=== PATIENT | female | born 1950 | race Caucasian/White ===

== ENCOUNTER → 2016-05-23 | Outpatient (REF) | payer MEDICARE, MEDICAID | LOC: M SMT 17:05 | PROVIDERS: ATTEND Urology | DX: Z85.51 Personal history of malignant neoplasm of bladder (principal) ==

== ENCOUNTER 2017-02-18 13:07 | Emergency (ER) | payer MEDICARE, MEDICAID ==
[~2017-02-18] VITALS: Ht 160 cm; Wt 78.6 kg
[2017-02-18 13:18] VITALS: BP 163/68
[2017-02-18] MEDS ORDERED: CLON1TAB (13:30)
[2017-02-18] MEDS ORDERED: HYDR-3363 (13:30)
[2017-02-18] MEDS ORDERED: ATOR40TA75 (13:30)
[2017-02-18] MEDS ORDERED: VENL75CA47 (13:30)
[2017-02-18] MEDS ORDERED: TRAZ50TA11 (13:30)
[2017-02-18] MEDS ORDERED: PROTPAK PO (13:30)
[2017-02-18] MEDS ORDERED: VENTAER (13:30)
[2017-02-18] MEDS ORDERED: LEVE1INJ5 (13:30)
[2017-02-18] MEDS ORDERED: AZOP0.2S (13:30)
[2017-02-18] MEDS ORDERED: XYZA5TAB2 PO (13:30)
[2017-02-18] MEDS ORDERED: HYDR-3713 (13:30)
[2017-02-18] MEDS ORDERED: FLUTISP (13:30)
[2017-02-18] MEDS ORDERED: LIDO1PAD (13:30)
[2017-02-18] MEDS ORDERED: AMPH15CA (13:30)
[2017-02-18] MEDS ORDERED: CLOP75TA2 (13:30)
[2017-02-18] MEDS ORDERED: CHLO125TA (13:30)
[2017-02-18] MEDS ORDERED: ALTA1CAP4 PO (13:30)
--- NOTE | 2017-02-18 14:45 | REP ---
RIGHT TIBIA AND FIBULA, FOUR VIEWS: HISTORY: Ankle pain. There is a nondisplaced fracture of the distal fibula. There is no dislocation. The joint space is normal in appearance. Osteophytes are present on the inferior and posterior calcaneus. Soft tissue swelling is present. IMPRESSION: Nondisplaced fracture of the distal fibula. Signed by Gonsalo Shell MD 02/18/2017 03:32 P
--- NOTE | 2017-02-18 15:19 | REP ---
BILATERAL LOWER EXTREMITY DUPLEX VEINS: HISTORY: Rule out DVT. RIGHT LOWER EXTREMITY: There are no filling defects in the deep venous system. The deep venous system is patent. IMPRESSION: There is no deep venous thrombosis. LEFT LOWER EXTREMITY: There are no filling defects in the deep venous system. The deep venous system is patent. IMPRESSION: There is no deep venous thrombosis. Signed by Gonsalo Shell MD 02/18/2017 03:32 P
[2017-02-18] MEDS ORDERED: NORCO, ANEXSIA 5/325MG TABLET (HYDROcodone/ACETAMINOPHEN) PO ONE (15:30)
[2017-02-18] MEDS ORDERED: NORCOTAB PO (15:52)
[2017-02-18] MEDS ORDERED: HYDR-3713 PO (16:00)
== END 2017-02-18 16:07 | disposition home or self-care (01) ==
LOC: M ED 13:07
DX: S82.831A Other fracture of upper and lower end of right fibula, initial encounter for closed fracture (principal); W10.8XXA Fall (on) (from) other stairs and steps, initial encounter; Y92.89 Other specified places as the place of occurrence of the external cause; Y93.89 Activity, other specified; Y99.8 Other external cause status; I10 Essential (primary) hypertension; J44.9 Chronic obstructive pulmonary disease, unspecified; E78.00 Pure hypercholesterolemia, unspecified; E03.9 Hypothyroidism, unspecified; F41.9 Anxiety disorder, unspecified; F33.9 Major depressive disorder, recurrent, unspecified; Z95.5 Presence of coronary angioplasty implant and graft; I25.10 Atherosclerotic heart disease of native coronary artery without angina pectoris; I73.9 Peripheral vascular disease, unspecified; M19.90 Unspecified osteoarthritis, unspecified site; N04.9 Nephrotic syndrome with unspecified morphologic changes; Z79.899 Other long term (current) drug therapy; Z88.0 Allergy status to penicillin; Z88.8 Allergy status to other drugs, medicaments and biological substances; F17.210 Nicotine dependence, cigarettes, uncomplicated; R22.41 Localized swelling, mass and lump, right lower limb

== ENCOUNTER → 2017-03-28 | Outpatient (CLI) | payer MEDICARE, MEDICAID | LOC: M RAD 13:18 | DX: I73.9 Peripheral vascular disease, unspecified (principal) | CPT/HCPCS: 93923 ==

== ENCOUNTER → 2017-07-27 | Outpatient (CLI) | payer MEDICARE, MEDICAID | LOC: M RAD 08:30 | DX: R09.89 Other specified symptoms and signs involving the circulatory and respiratory systems (principal) | CPT/HCPCS: 93880 ==

== ENCOUNTER → 2017-12-27 | Outpatient (CLI) | payer MEDICARE, MEDICAID | LOC: M RAD 11:27 | DX: I70.213 Atherosclerosis of native arteries of extremities with intermittent claudication, bilateral legs (principal); F17.218 Nicotine dependence, cigarettes, with other nicotine-induced disorders | CPT/HCPCS: 93925 ==

== ENCOUNTER → 2018-01-17 | Outpatient (CLI) | payer MEDICARE, MEDICAID | LOC: M RAD 15:44 | DX: R05 Cough (principal); R07.81 Pleurodynia | CPT/HCPCS: 71046 ==

== ENCOUNTER 2018-03-17 13:08 | Emergency (ER) | payer MEDICARE, MEDICAID ==
[~2018-03-17] VITALS: Ht 160 cm; Wt 83.2 kg
[~2018-03-17 13:08] MED LIST: ALTA1CAP4 PO; AMPH15CA; ATOR40TA75; AZOP0.2S; CHLO125TA; CLON1TAB8; CLOP75TA2; FLUTISP; HYDR-3363; HYDR-3713; HYDR-3713 PO; LEVE1INJ5; LIDO1PAD; NORCOTAB PO; PROTPAK PO; TRAZ-160; VENL75CA47; VENTAER; XYZA5TAB2 PO
[2018-03-17 13:09] VITALS: BP 156/69
[2018-03-17] MEDS ORDERED: NICO2GUM8 PO (13:37)
[2018-03-17] MEDS ORDERED: ADDE20CA3 PO (13:37)
[2018-03-17] MEDS ORDERED: ZOLP10TA2 (13:37)
[2018-03-17] MEDS ORDERED: QUET1TAB7 (13:37)
[2018-03-17] MEDS ORDERED: PANT40TA3 (13:37)
[2018-03-17] MEDS ORDERED: DULE200A (13:37)
[2018-03-17] MEDS ORDERED: CLEO300C2 PO (13:55)
[2018-03-17] MEDS ORDERED: VALA1TAB2 PO (13:55)
[2018-03-17] MEDS ORDERED: GABA-843 PO (13:55)
== END 2018-03-17 14:18 | disposition home or self-care (01) ==
LOC: M ED 13:08
DX: B02.9 Zoster without complications (principal); I25.10 Atherosclerotic heart disease of native coronary artery without angina pectoris; I25.2 Old myocardial infarction; I10 Essential (primary) hypertension; F41.9 Anxiety disorder, unspecified; F32.9 Major depressive disorder, single episode, unspecified; J44.9 Chronic obstructive pulmonary disease, unspecified; I73.9 Peripheral vascular disease, unspecified; N04.9 Nephrotic syndrome with unspecified morphologic changes; Z85.41 Personal history of malignant neoplasm of cervix uteri; Z95.5 Presence of coronary angioplasty implant and graft; Z72.0 Tobacco use; Z79.3 Long term (current) use of hormonal contraceptives; Z79.899 Other long term (current) drug therapy; Z88.0 Allergy status to penicillin; Z88.1 Allergy status to other antibiotic agents; Z88.8 Allergy status to other drugs, medicaments and biological substances

== ENCOUNTER → 2018-04-26 | Outpatient (CLI) | payer MEDICARE, MEDICAID ==
[~2018-04-26] MED LIST changes: +ADDE20CA3 PO; +CLEO300C2 PO; +DULE200A; +GABA-843 PO; +NICO2GUM8 PO; +PANT40TA3; +QUET1TAB7; +VALA1TAB2 PO; +ZOLP10TA2
--- NOTE | 2018-04-27 03:58 | REP ---
Clinical: Abdominal aortic aneurysm. Technique: Real time brewer scale ultrasound examination using curved array transducer. Findings: Examination is severely limited due to overlying bowel gas. Visualized portions of the abdominal aorta from the level of the diaphragm to the mid aorta below the level of the renal arteries demonstrates moderate aortic ectasia to 3.0 cm maximal diameter and diffuse atheromatous plaquing. Impression: Limited examination without evaluation of the mid to distal aorta. Visualized portions of the aorta demonstrate moderate ectasia and diffuse mixed atheromatous plaquing. Electronically Signed by Brad Chambers MD 04/27/2018 03:50 A
== END ==
LOC: M RAD 07:07
PROVIDERS: ATTEND Surgery Vascular Surgery
DX: I74.4 Embolism and thrombosis of arteries of extremities, unspecified (principal); R93.1 Abnormal findings on diagnostic imaging of heart and coronary circulation

== ENCOUNTER → 2018-05-24 | Outpatient (REF) | payer MEDICARE, MEDICAID | LOC: M LAB REF 17:05 | PROVIDERS: ATTEND Internal Medicine | DX: N39.0 Urinary tract infection, site not specified (principal) ==

== ENCOUNTER → 2018-07-24 | Outpatient (CLI) | payer MEDICARE, MEDICAID ==
[~2018-07-24] MED LIST changes: +HYDR-3715 PO; -NORCOTAB PO
--- NOTE | 2018-07-25 05:21 | REP ---
Clinical: Atherosclerotic disease with history of femoral - femoral graft. Comparison: 12/27/2017. Technique: Real time reid scale and color Doppler evaluation of the bilateral lower extremity arterial vasculature using linear high frequency transducer. Findings: Reid scale and color images again demonstrate patent fem-fem bypass graft with minimal stenosis at the bilateral anastomotic sites which remains relatively stable as compared to prior examination. Moderate amount of plaquing through the bilateral lower extremity arterial vessels again noted primarily involving the distal superficial femoral arteries. Wave patterns are predominantly biphasic bilaterally. Right ankle brachial index equals 0.93. Left ankle brachial index equals 0.81. Peak systolic velocities (cm/sec) RIGHT LEFT Common femoral artery 165 181 Profunda femoris 88 137 SFA (proximal) 108 146 SFA (mid) 96 89 SFA (distal) 89 76 Popliteal artery 89 93 [place]IA[place] (prox.) 28 38 Tibioperoneal trunk 45 78 FIRER LOW PRESSURE (prox.) 41 36 FIRER LOW PRESSURE (distal) 46 51 T[place]IANA (distal) 44 37 Impression: 1. Findings remain relatively stable as compared to prior examination again demonstrating mild stenosis at the fem-fem graft anastomotic sites along with moderate atheromatous plaquing through the bilateral lower extremities without evidence for stenosis. Electronically Signed by Brad Chambers MD 07/25/2018 05:12 A
== END ==
LOC: M RAD 09:50
PROVIDERS: ATTEND Surgery Vascular Surgery
DX: I70.213 Atherosclerosis of native arteries of extremities with intermittent claudication, bilateral legs (principal)

== ENCOUNTER → 2019-01-15 | Outpatient (CLI) | payer MEDICARE, MEDICAID ==
[~2019-01-15] MED LIST changes: -AMPH15CA; +AMPH1CAP15; -TRAZ-160; +TRAZ-252
--- NOTE | 2019-01-15 09:17 | REP ---
Clinical: Screening for abdominal aortic aneurysm. Technique: Real time brewer scale ultrasound examination using curved array transducer. Findings: Abdominal aorta demonstrates moderate atheromatous plaquing without evidence for aneurysm. No periaortic fluid collections are identified. Proximal aorta 2.1 x 2.5 cm. Mid aorta (renal artery level) 2.1 x 2.4 cm. Mid aorta 2.2 x 2.5 cm. Distal aorta 2.3 x 2.3 cm. Right common iliac artery 1.0 cm maximal diameter. Left common iliac artery 1.0 cm maximal diameter. Impression: Atheromatous plaquing without evidence for abdominal aortic aneurysm. Electronically Signed by Brad Chambers MD 01/15/2019 09:08 A
--- NOTE | 2019-01-15 09:51 | REP ---
Bilateral lower extremity arterial Doppler ultrasound: History: Claudication. Abdominal aortic ectasia. Atherosclerosis. The patient has a [id number] fem-fem crossover graft. Comparison sonography July 24, 2018. Sonographic findings: Ankle brachial indices are essentially unchanged measured at 0.94 on the right and 1.05 on the left. Monophasic waveforms are noted throughout the left lower extremity and some of the right lower extremity arteries. The patient has [id number] fem-fem crossover graft remains patent. Velocities in the graft there is essentially unchanged measured at 158 centimeters per second on the right, proximally; 107 cm/sec at mid graft level; and 205 cm/sec distally on the left. Increasing systolic velocity is observed in the left common femoral and proximal superficial femoral artery segments compared to the prior study consistent with increasing stenosis at these locations. Velocity chart right lower extremity arteries: CF A 123 cm/S Profunda 68 Proximal SFA 93 Mid SFA 113 Distal SFA 82 Popliteal 88 Proximal AT A 20 Tibioperoneal trunk 60 Proximal LAST TURNER 55 Distal LAST TURNER 67 Distal AT A 78 Velocity chart left lower extremity arteries: CF A 265 cm/S Profunda 51 Proximal SFA 338/95 Mid SFA 106 Distal SFA 88 Popliteal 95 Proximal AT A 50 Tibioperoneal trunk 81 Proximal LAST TURNER 61 Distal LAST TURNER 36 Distal AT A 50 Electronically Signed by Adiel An MD 01/15/2019 09:42 A
== END ==
LOC: M RAD 07:17
PROVIDERS: ATTEND Physician Assistant
DX: I77.811 Abdominal aortic ectasia (principal); I70.213 Atherosclerosis of native arteries of extremities with intermittent claudication, bilateral legs; I70.0 Atherosclerosis of aorta

== ENCOUNTER → 2019-05-09 | Outpatient (REF) | payer MEDICARE, MEDICAID ==
[~2019-05-09] MED LIST changes: -VALA1TAB2 PO; +VALA1TAB5 PO
== END ==
LOC: M LAB REF 12:28
PROVIDERS: ATTEND Internal Medicine
DX: R41.3 Other amnesia (principal)

== ENCOUNTER → 2019-09-04 | Outpatient (REF) | payer MEDICARE ==
[2019-09-05 14:58] LABS: APPEARANCE, URINE CLOUDY (CLEAR); BACTERIA, URINE AUTO NEGATIVE (NEGATIVE); BILIRUBIN, URINE AUTO NEGATIVE (NEGATIVE); BLOOD, URINE BLOOD NEGATIVE (NEGATIVE); COLOR, URINE YELLOW (YELLOW); GLUCOSE, URINE (UA) AUTO NEGATIVE (NEGATIVE); KETONE, URINE AUTO NEGATIVE (NEGATIVE); LEUKOCYTE ESTERASE, URINE AUTO NEGATIVE (NEGATIVE); MUCUS, URINE SMALL (NEGATIVE); NITRITE, URINE AUTO NEGATIVE (NEGATIVE); PROTEIN, URINE AUTO NEGATIVE (NEGATIVE); RBC, URINE AUTO 1 /HPF (0-3); SPECIFIC GRAVITY URINE AUTO 1.021 (1.002-1.035); SQUAMOUS EPITHELIAL CELL UR AU 3 /HPF (0-6); UROBILINOGEN, URINE AUTO 0.2 mg/dL (0.0-2.0); WBC, URINE AUTO 2 /HPF (0-3)
== END ==
LOC: M SMT 14:38
PROVIDERS: ATTEND Nurse Practitioner Women's Health
DX: R31.0 Gross hematuria (principal)
CPT/HCPCS: 81001; 87086; G0463

== ENCOUNTER → 2020-07-14 | Outpatient (REF) | payer MEDICARE, MEDICAID ==
[~2020-07-14] MED LIST changes: +GABA-282 PO; -GABA-843 PO; +PANT40TA29; -PANT40TA3; -QUET1TAB7; +QUET25TA3
[2020-07-14 15:20] LABS: BASO % 0.4 % (0.0-1.0); EOS # 0.3 10^3/uL (0.0-0.5); EOS % 3.5 % (0.0-3.0); HEMATOCRIT 39.6 % (36.0-47.0); HEMOGLOBIN 11.7 g/dl (12.0-15.5); MEAN CORPUSCULAR HEMOGLOBIN 23.3 pg (27.0-33.0); MEAN CORPUSCULAR HGB CONC 29.5 g/dl (32.0-36.5); MEAN CORPUSCULAR VOLUME 78.7 fl (80.0-96.0); MONO # 0.5 10^3/uL (0.0-0.8); MONO % 6.9 % (2.0-8.0); NEUTROPHILS # 4.5 10^3/uL (1.5-8.5); NEUTROPHILS % 61.9 % (36.0-66.0); PLATELET COUNT, AUTOMATED 155 10^3/uL (150-450); RED BLOOD COUNT 5.03 10^6/uL (4.00-5.40); WHITE BLOOD COUNT 7.2 10^3/uL (4.0-10.0)
[2020-07-14 16:04] LABS: ALBUMIN 3.2 GM/DL (3.2-5.2); ALT/SGPT 16 U/L (12-78); BILIRUBIN,TOTAL 0.4 MG/DL (0.2-1.0); BLOOD UREA NITROGEN 12 MG/DL (7-18); CARBON DIOXIDE LEVEL 27 MEQ/L (21-32); CHLORIDE LEVEL 104 MEQ/L (98-107); CHOLESTEROL LEVEL 132 MG/DL (<200); CREATININE FOR GFR 0.81 MG/DL (0.55-1.30); FREE T4 0.97 NG/DL (0.76-1.46); GLOMERULAR FILTRATION RATE > 60.0 (>39); GLUCOSE, FASTING 294 MG/DL (70-100); HDL CHOLESTEROL 40 MG/DL (>40); LDL CHOLESTEROL 59 MG/DL (<100); NON-HDL-C 92 MG/DL; POTASSIUM SERUM 4.3 MEQ/L (3.5-5.1); SODIUM LEVEL 137 MEQ/L (136-145); TOTAL 25(OH) VITAMIN D 31.9 NG/ML (30.0-100.0); TOTAL PROTEIN 7.2 GM/DL (6.4-8.2); TRIGLYCERIDES LEVEL 167 MG/DL (<150)
[2020-07-14 16:05] LABS: CREATININE, URINE 54.1 MG/DL; MALB URINE SIEMENS 21.3 MG/L; MAU/CREAT RATIO 39.3 MCG/MG (0.0-30.0)
[2020-07-14 16:26] LABS: HEMOGLOBIN A1c 11.9 %
== END ==
LOC: M SFHCPLAZ 12:29
PROVIDERS: ATTEND Nurse Practitioner Family
DX: E78.5 Hyperlipidemia, unspecified (principal); E11.9 Type 2 diabetes mellitus without complications; I10 Essential (primary) hypertension; E55.9 Vitamin D deficiency, unspecified
CPT/HCPCS: 36415; 80053; 80061; 82043; 82306; 83036; 84439; 84443; 85025; G0463

== ENCOUNTER 2020-11-07 15:54 | Emergency (ER) | payer MEDICARE, MEDICAID ==
[~2020-11-07] VITALS: Ht 160 cm; Wt 72.3 kg
[2020-11-07 15:54] VITALS: BP 169/70
[~2020-11-07 15:54] MED LIST changes: +QUET1TAB17; -QUET25TA3
[2020-11-07] MEDS ORDERED: HYDR-4571 (16:04)
[2020-11-07] MEDS ORDERED: FLUC150T (16:04)
[2020-11-07 17:31] LABS: HEMATOCRIT 37.3 % (36.0-47.0); HEMOGLOBIN 10.9 g/dl (12.0-15.5); MEAN CORPUSCULAR HEMOGLOBIN 20.5 pg (27.0-33.0); MEAN CORPUSCULAR HGB CONC 29.2 g/dl (32.0-36.5); PLATELET COUNT, AUTOMATED 146 10^3/uL (150-450); RED BLOOD COUNT 5.33 10^6/uL (4.00-5.40); WHITE BLOOD COUNT 5.5 10^3/uL (4.0-10.0)
[2020-11-07 18:00] LABS: C REACTIVE PROTEIN QUANTITATIV 1.73 MG/DL (0.00-0.30); CK-MB VALUE MASS 1.9 NG/ML (<3.6); CPK CREATINE PHOSPHOKINASE 48 U/L (26-192); MB/CK RELATIVE INDEX 3.96 (< OR =4); NT-PRO BNP 3407 PG/ML (<125); TROPONIN I < 0.02 NG/ML (< 0.10)
--- NOTE | 2020-11-07 18:06 | REP ---
INDICATION: r/o DVT, swelling, pain COMPARISON: 02/18/2017 TECHNIQUE: Reid scale and color Doppler evaluation using linear high frequency transducer. FINDINGS: Ultrasound examination of the left lower extremity deep venous structures from the common femoral vein through the popliteal vein demonstrates normal compressibility flow and wave patterns in response to respiration and augmentation. There is no evidence for deep venous thrombosis. Contralateral CFV is patent and normal. IMPRESSION: No evidence for deep venous thrombosis. <Electronically signed by Brad Chambers > 11/07/20 [id number]
[2020-11-07 18:13] LABS: ATYPICAL LYMPH 2 % (0-5); BASOPHILS 2 % (0-1); EOSINOPHILS 4 % (0-3); LYMPHOCYTES 32 % (16-44); METAMYELOCYTES 1 % (0-0); MONOCYTES 3 % (0-5); NEUTROPHILS 56 % (28-66)
[2020-11-07 18:14] LABS: ANISOCYTOSIS 4+; MICROCYTOSIS 2+; PLATELET ESTIMATE NORMAL (NORMAL)
[2020-11-07 18:15] LABS: HYPOCHROMASIA 2+
[2020-11-07 18:16] LABS: ERYTHROCYTE SEDIMENTATION RATE 22 mm/hr (0-30)
--- NOTE | 2020-11-07 18:24 | REP ---
INDICATION: SOB, leg swelling COMPARISON: 01/17/2018 TECHNIQUE: PA and lateral. FINDINGS: Evaluation is limited by underpenetration. Cephalization with increased pulmonary vasculature and interstitial markings may reflect mild interstitial edema. Differential diagnosis may include bronchiolitis. No focal consolidation or effusion. No pneumothorax. Mediastinum and cardiac silhouette are within normal limits. Skeletal structures are intact. IMPRESSION: Cannot exclude mild interstitial edema versus bronchiolitis. <Electronically signed by Brad Chambers > 11/07/20 [id number]
[2020-11-07] MEDS ORDERED: LASI40TA9 PO (19:25)
[2020-11-07] MEDS ORDERED: POTASSIUM CHLORIDE 10 MEQ SR TABLET PO ONE (19:25)
[2020-11-07] MEDS ORDERED: FUROSEMIDE 40 MG TAB PO ONE (19:25)
[2020-11-07] MEDS ORDERED: K-TA10TA2 PO (19:25)
--- NOTE | 2020-11-08 08:55 | ECGEPIP ---
[facility] - ED Test Date: 2020-11-07 Pat Name: KANE FELIX Department: Room: - Gender: Female [employer] Systems Engineer: LR : 1950 Requested By: FRANCISCO J White PA-C Order Number: [id number] Reading MD: Ashley Locke Measurements Intervals [place] Rate: 77 P: 64 WI: 176 QRS: 31 QRSD: 92 T: 66 QT: 388 QTc: 439 Interpretive Statements Normal sinus rhythm Low voltage QRS Cannot rule out Anterior infarct , age undetermined NSTTW abnormalities No prior Electronically Signed on 11-08-2020 8:54:44 EDT by Ashley Locke
== END 2020-11-07 19:41 | disposition home or self-care (01) ==
LOC: M ED 15:54
DX: R60.9 Edema, unspecified (principal); M79.606 Pain in leg, unspecified; I25.10 Atherosclerotic heart disease of native coronary artery without angina pectoris; I25.2 Old myocardial infarction; I10 Essential (primary) hypertension; E78.5 Hyperlipidemia, unspecified; J44.9 Chronic obstructive pulmonary disease, unspecified; E03.9 Hypothyroidism, unspecified; M19.90 Unspecified osteoarthritis, unspecified site; N04.9 Nephrotic syndrome with unspecified morphologic changes; F17.200 Nicotine dependence, unspecified, uncomplicated; Z79.899 Other long term (current) drug therapy; Z88.1 Allergy status to other antibiotic agents; Z88.0 Allergy status to penicillin; Z88.8 Allergy status to other drugs, medicaments and biological substances; Z91.89 Other specified personal risk factors, not elsewhere classified

== ENCOUNTER → 2021-03-18 | Outpatient (CLI) | payer MEDICARE ==
[~2021-03-18] MED LIST changes: +FLUC150T; +HYDR-4571; +K-TA10TA2 PO; +LASI40TA9 PO
[2021-03-18 17:56] LABS: BASO # 0.1 10^3/uL (0.0-0.2); BASO % 0.6 % (0.0-1.0); EOS # 0.3 10^3/uL (0.0-0.5); EOS % 4.1 % (0.0-3.0); HEMATOCRIT 39.6 % (36.0-47.0); HEMOGLOBIN 11.8 g/dl (12.0-15.5); LYMPH # 2.1 10^3/uL (1.5-5.0); MEAN CORPUSCULAR HEMOGLOBIN 21.8 pg (27.0-33.0); MEAN CORPUSCULAR HGB CONC 29.8 g/dl (32.0-36.5); MEAN CORPUSCULAR VOLUME 73.2 fl (80.0-96.0); MONO # 0.6 10^3/uL (0.0-0.8); NEUTROPHILS # 4.7 10^3/uL (1.5-8.5); PLATELET COUNT, AUTOMATED 211 10^3/uL (150-450); RED BLOOD COUNT 5.41 10^6/uL (4.00-5.40); WHITE BLOOD COUNT 7.9 10^3/uL (4.0-10.0)
[2021-03-18 18:03] LABS: HEMOGLOBIN A1c 10.5 %
[2021-03-18 18:16] LABS: ALBUMIN 3.4 GM/DL (3.2-5.2); ALT/SGPT 14 U/L (12-78); BILIRUBIN,TOTAL 0.2 MG/DL (0.2-1.0); BLOOD UREA NITROGEN 16 MG/DL (7-18); CALCIUM LEVEL 8.8 MG/DL (8.8-10.2); CARBON DIOXIDE LEVEL 24 MEQ/L (21-32); CHLORIDE LEVEL 104 MEQ/L (98-107); CHOLESTEROL LEVEL 187 MG/DL (<200); CREATININE FOR GFR 0.76 MG/DL (0.55-1.30); GLOMERULAR FILTRATION RATE > 60.0 (>39); GLUCOSE, FASTING 186 MG/DL (70-100); HDL CHOLESTEROL 44 MG/DL (>40); LDL CHOLESTEROL 98 MG/DL (<100); NON-HDL-C 143 MG/DL; POTASSIUM SERUM 3.9 MEQ/L (3.5-5.1); SODIUM LEVEL 136 MEQ/L (136-145); TOTAL 25(OH) VITAMIN D 31.6 NG/ML (30.0-100.0); TOTAL PROTEIN 7.7 GM/DL (6.4-8.2); TRIGLYCERIDES LEVEL 223 MG/DL (<150)
[2021-03-18 18:18] LABS: MAU/CREAT RATIO 229.7 MCG/MG (0.0-30.0)
== END ==
LOC: M PLALAB 15:32
PROVIDERS: ATTEND Nurse Practitioner Family
DX: E11.9 Type 2 diabetes mellitus without complications (principal); E78.5 Hyperlipidemia, unspecified; E55.9 Vitamin D deficiency, unspecified; J44.9 Chronic obstructive pulmonary disease, unspecified

== ENCOUNTER 2021-09-05 13:26 | Inpatient (IN) | payer MEDICARE, MEDICAID ==
[~2021-09-05] VITALS: Ht 160 cm; Wt 74.6 kg
[~2021-09-05 13:26] MED LIST changes: -FLUC150T; +FLUC150T9; -HYDR-4571; +HYDR-4571 PO; -PANT40TA29; +PANT40TA29 PO; -VENTAER; +VENTAER INH
[2021-09-05 14:58] LABS: BASO % 0.4 % (0.0-1.0); EOS # 0.1 10^3/uL (0.0-0.5); EOS % 1.1 % (0.0-3.0); HEMATOCRIT 35.1 % (36.0-47.0); HEMOGLOBIN 9.9 g/dl (12.0-15.5); LYMPH # 0.9 10^3/uL (1.5-5.0); LYMPH % 16.8 % (24.0-44.0); MEAN CORPUSCULAR HEMOGLOBIN 19.6 pg (27.0-33.0); MEAN CORPUSCULAR HGB CONC 28.2 g/dl (32.0-36.5); MEAN CORPUSCULAR VOLUME 69.5 fl (80.0-96.0); MONO # 0.4 10^3/uL (0.0-0.8); MONO % 7.7 % (2.0-8.0); NEUTROPHILS # 3.9 10^3/uL (1.5-8.5); NEUTROPHILS % 73.6 % (36.0-66.0); PLATELET COUNT, AUTOMATED 177 10^3/uL (150-450); RED BLOOD COUNT 5.05 10^6/uL (4.00-5.40); WHITE BLOOD COUNT 5.3 10^3/uL (4.0-10.0)
[2021-09-05 15:08] LABS: INR 1.07; PROTHROMBIN TIME 14.3 SECONDS (12.7-14.5)
[2021-09-05 15:11] LABS: D-DIMER QUANT 1508.93 ng/ml (<500)
[2021-09-05 15:22] LABS: CK-MB VALUE MASS 4.9 NG/ML (<3.6); MB/CK RELATIVE INDEX 3.31 (< OR =4)
[2021-09-05 15:29] LABS: ALT/SGPT 17 U/L (12-78); BILIRUBIN,DIRECT 0.4 MG/DL (0.0-0.2); BILIRUBIN,TOTAL 0.6 MG/DL (0.2-1.0); BLOOD UREA NITROGEN 19 MG/DL (7-18); CALCIUM LEVEL 8.6 MG/DL (8.8-10.2); CARBON DIOXIDE LEVEL 23 MEQ/L (21-32); CHLORIDE LEVEL 110 MEQ/L (98-107); CREATININE FOR GFR 0.97 MG/DL (0.55-1.30); GLOMERULAR FILTRATION RATE > 60.0 (>39); GLUCOSE, FASTING 223 MG/DL (70-100); NT-PRO BNP 6602 PG/ML (<125); POTASSIUM SERUM 3.8 MEQ/L (3.5-5.1); SODIUM LEVEL 143 MEQ/L (136-145); TOTAL PROTEIN 7.3 GM/DL (6.4-8.2)
[2021-09-05] MEDS ORDERED: ISOVUE-370 76% 100ML VIAL As Ordered ONE (16:17)
[2021-09-05 16:30] LABS: CK-MB VALUE MASS 4.5 NG/ML (<3.6); MB/CK RELATIVE INDEX 3.21 (< OR =4)
[2021-09-05] MEDS ORDERED: FUROSEMIDE 40MG/4ML VIAL (J1940) IV ONE (17:30)
[2021-09-05] MEDS ORDERED: HYDR-3490 PO (17:46)
[2021-09-05] MEDS ORDERED: LEVOTAB10 PO (17:46)
[2021-09-05] MEDS ORDERED: AMLO1TAB25 PO (17:46)
[2021-09-05] MEDS ORDERED: SERT50TA29 PO (18:03)
[2021-09-05] MEDS ORDERED: ZOLO100T PO (18:03)
[2021-09-05] MEDS ORDERED: HYDR-3363 PO (18:03)
[2021-09-05] MEDS ORDERED: DOXE25CA PO (18:03)
[2021-09-05] MEDS ORDERED: CLOP75TA2 PO (18:03)
[2021-09-05] MEDS ORDERED: ROSU10TA6 PO (18:03)
[2021-09-05] MEDS ORDERED: MOM 30ML SUSPENSION UDC PO PRN (18:10)
[2021-09-05] MEDS ORDERED: ACETAMINOPHEN TAB 650MG DOSE (2X325MG) PO PRN (18:10)
[2021-09-05] MEDS ORDERED: GLUCOSE 4GM CHEW TABLET PO PRN (18:10)
[2021-09-05] MEDS ORDERED: GLUCAGON INJ 1MG VIAL SC PRN (18:10)
[2021-09-05] MEDS ORDERED: DEXTROSE 50% 50 ML SYRINGE IV PRN (18:10)
[2021-09-05] MEDS ORDERED: MAALOX 30 ML SUSP *UDC PO PRN (18:10)
[2021-09-05] MEDS ORDERED: ADDE20TA PO (18:40)
[2021-09-05] MEDS ORDERED: ASPI81TA26 PO (18:40)
[2021-09-05] MEDS ORDERED: LEVE1INJ5 SC (18:40)
[2021-09-05] MEDS ORDERED: HOME MED LIST COMPLETE! XX SCH (18:45)
[2021-09-05] MEDS ORDERED: IPRATROPIUM 0.5MG/ALBUTEROL 2.5MG INH SOL UD 3ML (DUONEB) NEB PRN (18:55)
[2021-09-05 19:33] LABS: ALBUMIN 3.1 GM/DL (3.2-5.2); BILIRUBIN,DIRECT 0.5 MG/DL (0.0-0.2); BILIRUBIN,TOTAL 0.6 MG/DL (0.2-1.0); C REACTIVE PROTEIN QUANTITATIV 2.48 MG/DL (0.00-0.30); CK-MB VALUE MASS 4.6 NG/ML (<3.6); INR 1.05; PROTHROMBIN TIME 14.1 SECONDS (12.7-14.5); TOTAL PROTEIN 7.3 GM/DL (6.4-8.2)
[2021-09-05 19:34] LABS: MB/CK RELATIVE INDEX 3.05 (< OR =4)
[2021-09-05 19:36] LABS: D-DIMER QUANT 1615.13 ng/ml (<500)
[2021-09-05] MEDS: INSULIN LISPRO (NovoLOG) PER UNIT SC SCH (21:00)
[2021-09-05] MEDS ORDERED: REMDESIVIR 200 MG in NS 250 ML IV ONE (21:00)
[2021-09-05] MEDS ORDERED: SODIUM CHLORIDE 0.9% INJ 10 ML SYR IV ONE (23:00)
[2021-09-05 23:03] LABS: CK-MB VALUE MASS 4.5 NG/ML (<3.6); MB/CK RELATIVE INDEX 3.04 (< OR =4)
[2021-09-06 00:51] LABS: CK-MB VALUE MASS 4.3 NG/ML (<3.6); MB/CK RELATIVE INDEX 2.89 (< OR =4)
[2021-09-06 01:15] VITALS: BP 140/68
[2021-09-06] MEDS: DOCUSATE SODIUM 100MG CAPSULE PO SCH ×3 (01:31→19:47)
[2021-09-06] MEDS: RAMELTEON 8 MG TAB (ROZEREM) PO PRN ×2 (01:32→21:29)
[2021-09-06] MEDS: LEVEMIR (INSULIN DETEMIR) 1 UNITS/0.01ML SC SCH ×3 (01:33→19:48)
[2021-09-06] MEDS: ENOXAPARIN 40MG/0.4ML SYRINGE (J1650 PER 10MG) SC SCH ×3 (01:33→19:46)
[2021-09-06] MEDS: NORCO, ANEXSIA 5/325MG TABLET (HYDROcodone/ACETAMINOPHEN) PO PRN ×2 (01:36→20:41)
[2021-09-06] MEDS: guaiFENesin ER 600 MG TAB PO SCH ×3 (01:46→19:47)
[2021-09-06] MEDS: DOXEPIN 25 MG CAP PO SCH ×2 (02:03→19:46)
[2021-09-06 06:00] VITALS: BP 116/57
[2021-09-06] MEDS ORDERED: hydrOXYzine 50 MG TAB PO ONE (06:00)
[2021-09-06 06:21] LABS: BASO % 0.3 % (0.0-1.0); EOS # 0.1 10^3/uL (0.0-0.5); EOS % 1.5 % (0.0-3.0); HEMATOCRIT 33.5 % (36.0-47.0); HEMOGLOBIN 9.1 g/dl (12.0-15.5); LYMPH # 1.7 10^3/uL (1.5-5.0); LYMPH % 23.1 % (24.0-44.0); MEAN CORPUSCULAR HEMOGLOBIN 18.9 pg (27.0-33.0); MEAN CORPUSCULAR HGB CONC 27.2 g/dl (32.0-36.5); MEAN CORPUSCULAR VOLUME 69.6 fl (80.0-96.0); MONO # 0.6 10^3/uL (0.0-0.8); MONO % 8.5 % (2.0-8.0); NEUTROPHILS # 4.9 10^3/uL (1.5-8.5); NEUTROPHILS % 66.2 % (36.0-66.0); PLATELET COUNT, AUTOMATED 172 10^3/uL (150-450); RED BLOOD COUNT 4.81 10^6/uL (4.00-5.40); WHITE BLOOD COUNT 7.4 10^3/uL (4.0-10.0)
[2021-09-06 06:53] LABS: ALBUMIN 2.7 GM/DL (3.2-5.2); ALT/SGPT 13 U/L (12-78); BILIRUBIN,TOTAL 0.5 MG/DL (0.2-1.0); BLOOD UREA NITROGEN 19 MG/DL (7-18); CALCIUM LEVEL 8.3 MG/DL (8.8-10.2); CARBON DIOXIDE LEVEL 22 MEQ/L (21-32); CHLORIDE LEVEL 110 MEQ/L (98-107); CREATININE FOR GFR 0.92 MG/DL (0.55-1.30); GLOMERULAR FILTRATION RATE > 60.0 (>39); GLUCOSE, FASTING 202 MG/DL (70-100); MAGNESIUM LEVEL 1.5 MG/DL (1.8-2.4); POTASSIUM SERUM 3.5 MEQ/L (3.5-5.1); SODIUM LEVEL 142 MEQ/L (136-145); TOTAL PROTEIN 7.1 GM/DL (6.4-8.2)
[2021-09-06] MEDS: IPRATROPIUM 0.5MG/ALBUTEROL 2.5MG INH SOL UD 3ML (DUONEB) NEB SCH ×3 (08:00→20:00)
[2021-09-06] MEDS: PANTOPRAZOLE 40MG TAB (PROTONIX) PO SCH (08:34)
[2021-09-06] MEDS: ROSUVASTATIN 10 MG TAB (CRESTOR) PO SCH (08:34)
[2021-09-06] MEDS: CLOPIDOGREL 75 MG TAB PO SCH (08:34)
[2021-09-06] MEDS: SERTRALINE 100 MG TAB PO SCH (08:34)
[2021-09-06] MEDS: ASPIRIN 81MG ENTERIC TABLET PO SCH (08:35)
[2021-09-06] MEDS: dexameTHASONE 4 MG/ML 1ML VIAL (J1100 PER 1MG) IV SCH (08:36)
[2021-09-06] MEDS: INSULIN LISPRO (NovoLOG) PER UNIT SC SCH ×4 (08:36→19:47)
[2021-09-06] MEDS ORDERED: MAG SULF 1GM/100ML (MAG RUN) 1 GM in IV 1 EA IV ONE (09:00)
[2021-09-06] MEDS ORDERED: FUROSEMIDE 40MG/4ML VIAL (J1940) IV SCH (09:00)
[2021-09-06 12:00] VITALS: BP 120/62
[2021-09-06] MEDS: NICOTINE 21MG/24HR 1 EA TRANSDERMAL TD SCH (12:18)
[2021-09-06] MEDS: FUROSEMIDE 40MG/4ML VIAL (J1940) IV SCH ×3 (12:18→23:49)
[2021-09-06 19:34] VITALS: BP 123/58
[2021-09-06] MEDS: SODIUM CHLORIDE 0.9% INJ 10 ML SYR IV SCH (19:48)
[2021-09-06] MEDS: REMDESIVIR 100 MG in NS 250 ML IV SCH (19:48)
[2021-09-07] MEDS: IPRATROPIUM 0.5MG/ALBUTEROL 2.5MG INH SOL UD 3ML (DUONEB) NEB SCH ×4 (02:00→20:53)
[2021-09-07 04:43] VITALS: BP 109/55
[2021-09-07] MEDS: FUROSEMIDE 40MG/4ML VIAL (J1940) IV SCH ×3 (06:06→20:54)
[2021-09-07 06:28] LABS: BASO % 0.1 % (0.0-1.0); EOS % 0.5 % (0.0-3.0); HEMATOCRIT 29.9 % (36.0-47.0); HEMOGLOBIN 8.6 g/dl (12.0-15.5); LYMPH # 1.8 10^3/uL (1.5-5.0); LYMPH % 23.3 % (24.0-44.0); MEAN CORPUSCULAR HEMOGLOBIN 19.8 pg (27.0-33.0); MEAN CORPUSCULAR HGB CONC 28.8 g/dl (32.0-36.5); MEAN CORPUSCULAR VOLUME 68.7 fl (80.0-96.0); MONO # 0.8 10^3/uL (0.0-0.8); MONO % 9.9 % (2.0-8.0); NEUTROPHILS # 5.2 10^3/uL (1.5-8.5); NEUTROPHILS % 65.9 % (36.0-66.0); PLATELET COUNT, AUTOMATED 183 10^3/uL (150-450); RED BLOOD COUNT 4.35 10^6/uL (4.00-5.40); WHITE BLOOD COUNT 7.8 10^3/uL (4.0-10.0)
[2021-09-07 07:07] LABS: ALBUMIN 2.5 GM/DL (3.2-5.2); ALT/SGPT 14 U/L (12-78); BILIRUBIN,TOTAL 0.4 MG/DL (0.2-1.0); BLOOD UREA NITROGEN 20 MG/DL (7-18); CALCIUM LEVEL 8.2 MG/DL (8.8-10.2); CARBON DIOXIDE LEVEL 27 MEQ/L (21-32); CHLORIDE LEVEL 108 MEQ/L (98-107); GLOMERULAR FILTRATION RATE > 60.0 (>39); GLUCOSE, FASTING 49 MG/DL (70-100); MAGNESIUM LEVEL 1.5 MG/DL (1.8-2.4); POTASSIUM SERUM 2.7 MEQ/L (3.5-5.1); SODIUM LEVEL 145 MEQ/L (136-145); TOTAL PROTEIN 6.3 GM/DL (6.4-8.2)
[2021-09-07] MEDS ORDERED: POTASSIUM CHLORIDE 10% LIQ 20 MEQ/15 ML UDC PO ONE ×2 (07:15→10:00)
[2021-09-07] MEDS: INSULIN LISPRO (NovoLOG) PER UNIT SC SCH ×4 (07:30→20:07)
[2021-09-07] MEDS: MAG SULF 1GM/100ML (MAG RUN) 1 GM in IV 1 EA IV SCH ×2 (09:09→10:28)
[2021-09-07] MEDS: SERTRALINE 100 MG TAB PO SCH (09:10)
[2021-09-07] MEDS: PANTOPRAZOLE 40MG TAB (PROTONIX) PO SCH (09:10)
[2021-09-07] MEDS: ROSUVASTATIN 10 MG TAB (CRESTOR) PO SCH (09:10)
[2021-09-07] MEDS: ASPIRIN 81MG ENTERIC TABLET PO SCH (09:10)
[2021-09-07] MEDS: NICOTINE 21MG/24HR 1 EA TRANSDERMAL TD SCH (09:10)
[2021-09-07] MEDS: guaiFENesin ER 600 MG TAB PO SCH ×2 (09:10→20:07)
[2021-09-07] MEDS: DOCUSATE SODIUM 100MG CAPSULE PO SCH ×2 (09:11→20:07)
[2021-09-07] MEDS: CLOPIDOGREL 75 MG TAB PO SCH (09:11)
[2021-09-07] MEDS: LEVEMIR (INSULIN DETEMIR) 1 UNITS/0.01ML SC SCH ×2 (09:11→20:06)
[2021-09-07] MEDS: dexameTHASONE 4 MG/ML 1ML VIAL (J1100 PER 1MG) IV SCH (09:12)
[2021-09-07] MEDS: ENOXAPARIN 40MG/0.4ML SYRINGE (J1650 PER 10MG) SC SCH ×2 (09:12→20:06)
[2021-09-07 12:00] VITALS: BP 124/57
[2021-09-07 15:37] LABS: BLOOD UREA NITROGEN 21 MG/DL (7-18); CALCIUM LEVEL 7.6 MG/DL (8.8-10.2); CARBON DIOXIDE LEVEL 29 MEQ/L (21-32); CHLORIDE LEVEL 104 MEQ/L (98-107); CREATININE FOR GFR 0.86 MG/DL (0.55-1.30); GLOMERULAR FILTRATION RATE > 60.0 (>39); GLUCOSE, FASTING 226 MG/DL (70-100); MAGNESIUM LEVEL 1.8 MG/DL (1.8-2.4); POTASSIUM SERUM 4.2 MEQ/L (3.5-5.1); SODIUM LEVEL 143 MEQ/L (136-145)
[2021-09-07] MEDS ORDERED: MAG SULF 1GM/100ML (MAG RUN) 1 GM in IV 1 EA IV ONE (17:30)
[2021-09-07] MEDS: NORCO, ANEXSIA 5/325MG TABLET (HYDROcodone/ACETAMINOPHEN) PO PRN (18:03)
[2021-09-07 19:16] VITALS: BP 122/68
[2021-09-07] MEDS: REMDESIVIR 100 MG in NS 250 ML IV SCH (20:05)
[2021-09-07] MEDS: RAMELTEON 8 MG TAB (ROZEREM) PO PRN (20:07)
[2021-09-07] MEDS: DOXEPIN 25 MG CAP PO SCH (20:07)
[2021-09-07] MEDS: SODIUM CHLORIDE 0.9% INJ 10 ML SYR IV SCH (20:08)
[2021-09-07 20:53] VITALS: O2SAT 95
[2021-09-08 01:27] VITALS: O2SAT 97
[2021-09-08] MEDS: IPRATROPIUM 0.5MG/ALBUTEROL 2.5MG INH SOL UD 3ML (DUONEB) NEB SCH ×4 (01:27→20:19)
[2021-09-08] MEDS: NORCO, ANEXSIA 5/325MG TABLET (HYDROcodone/ACETAMINOPHEN) PO PRN ×3 (02:36→20:16)
[2021-09-08 04:00] VITALS: BP 148/68
[2021-09-08] MEDS: FUROSEMIDE 40MG/4ML VIAL (J1940) IV SCH ×3 (05:15→21:35)
[2021-09-08 06:25] LABS: BASO % 0.2 % (0.0-1.0); EOS % 0.5 % (0.0-3.0); HEMATOCRIT 31.2 % (36.0-47.0); HEMOGLOBIN 8.6 g/dl (12.0-15.5); LYMPH # 1.4 10^3/uL (1.5-5.0); LYMPH % 23.4 % (24.0-44.0); MEAN CORPUSCULAR HEMOGLOBIN 19.1 pg (27.0-33.0); MEAN CORPUSCULAR HGB CONC 27.6 g/dl (32.0-36.5); MEAN CORPUSCULAR VOLUME 69.2 fl (80.0-96.0); MONO # 0.5 10^3/uL (0.0-0.8); NEUTROPHILS # 4.1 10^3/uL (1.5-8.5); NEUTROPHILS % 67.7 % (36.0-66.0); PLATELET COUNT, AUTOMATED 145 10^3/uL (150-450); RED BLOOD COUNT 4.51 10^6/uL (4.00-5.40)
[2021-09-08 06:53] LABS: ALBUMIN 2.7 GM/DL (3.2-5.2); ALT/SGPT 12 U/L (12-78); BILIRUBIN,TOTAL 0.4 MG/DL (0.2-1.0); BLOOD UREA NITROGEN 23 MG/DL (7-18); CALCIUM LEVEL 7.8 MG/DL (8.8-10.2); CARBON DIOXIDE LEVEL 31 MEQ/L (21-32); CHLORIDE LEVEL 105 MEQ/L (98-107); CREATININE FOR GFR 0.69 MG/DL (0.55-1.30); GLOMERULAR FILTRATION RATE > 60.0 (>39); GLUCOSE, FASTING 103 MG/DL (70-100); MAGNESIUM LEVEL 1.7 MG/DL (1.8-2.4); POTASSIUM SERUM 3.4 MEQ/L (3.5-5.1); SODIUM LEVEL 143 MEQ/L (136-145); TOTAL PROTEIN 6.4 GM/DL (6.4-8.2)
[2021-09-08] MEDS ORDERED: POTASSIUM CHLORIDE 10% LIQ 20 MEQ/15 ML UDC PO ONE (07:30)
[2021-09-08] MEDS ORDERED: MAG SULF 1GM/100ML (MAG RUN) 1 GM in IV 1 EA IV ONE (09:15)
[2021-09-08] MEDS: LEVEMIR (INSULIN DETEMIR) 1 UNITS/0.01ML SC SCH ×2 (09:35→20:17)
[2021-09-08] MEDS: dexameTHASONE 4 MG/ML 1ML VIAL (J1100 PER 1MG) IV SCH (09:35)
[2021-09-08] MEDS: INSULIN LISPRO (NovoLOG) PER UNIT SC SCH ×4 (09:35→20:07)
[2021-09-08] MEDS: DOCUSATE SODIUM 100MG CAPSULE PO SCH ×2 (09:36→20:15)
[2021-09-08] MEDS: ROSUVASTATIN 10 MG TAB (CRESTOR) PO SCH (09:37)
[2021-09-08] MEDS: CLOPIDOGREL 75 MG TAB PO SCH (09:37)
[2021-09-08] MEDS: guaiFENesin ER 600 MG TAB PO SCH ×2 (09:37→20:15)
[2021-09-08] MEDS: NICOTINE 21MG/24HR 1 EA TRANSDERMAL TD SCH (09:37)
[2021-09-08] MEDS: ASPIRIN 81MG ENTERIC TABLET PO SCH (09:37)
[2021-09-08] MEDS: PANTOPRAZOLE 40MG TAB (PROTONIX) PO SCH (09:37)
[2021-09-08] MEDS: ENOXAPARIN 40MG/0.4ML SYRINGE (J1650 PER 10MG) SC SCH ×2 (09:37→20:15)
[2021-09-08] MEDS: SERTRALINE 100 MG TAB PO SCH (09:37)
[2021-09-08 11:49] VITALS: BP 135/63
[2021-09-08 19:38] VITALS: BP 128/56
[2021-09-08] MEDS: DOXEPIN 25 MG CAP PO SCH (20:15)
[2021-09-08] MEDS: REMDESIVIR 100 MG in NS 250 ML IV SCH (20:17)
[2021-09-08] MEDS: SODIUM CHLORIDE 0.9% INJ 10 ML SYR IV SCH (21:35)
[2021-09-09] MEDS: IPRATROPIUM 0.5MG/ALBUTEROL 2.5MG INH SOL UD 3ML (DUONEB) NEB SCH ×4 (01:26→19:43)
[2021-09-09 05:56] LABS: BASO % 0.2 % (0.0-1.0); EOS % 0.2 % (0.0-3.0); HEMATOCRIT 30.4 % (36.0-47.0); HEMOGLOBIN 8.7 g/dl (12.0-15.5); LYMPH # 0.9 10^3/uL (1.5-5.0); LYMPH % 8.7 % (24.0-44.0); MEAN CORPUSCULAR HEMOGLOBIN 19.5 pg (27.0-33.0); MEAN CORPUSCULAR HGB CONC 28.6 g/dl (32.0-36.5); MEAN CORPUSCULAR VOLUME 68.2 fl (80.0-96.0); MONO # 0.7 10^3/uL (0.0-0.8); MONO % 6.4 % (2.0-8.0); NEUTROPHILS # 9.1 10^3/uL (1.5-8.5); NEUTROPHILS % 83.9 % (36.0-66.0); PLATELET COUNT, AUTOMATED 159 10^3/uL (150-450); RED BLOOD COUNT 4.46 10^6/uL (4.00-5.40); WHITE BLOOD COUNT 10.8 10^3/uL (4.0-10.0)
[2021-09-09 06:00] VITALS: BP 129/62
[2021-09-09] MEDS: FUROSEMIDE 40MG/4ML VIAL (J1940) IV SCH ×3 (06:02→21:43)
[2021-09-09 06:15] LABS: ALBUMIN 2.8 GM/DL (3.2-5.2); ALT/SGPT 11 U/L (12-78); BILIRUBIN,TOTAL 0.5 MG/DL (0.2-1.0); BLOOD UREA NITROGEN 18 MG/DL (7-18); CALCIUM LEVEL 8.1 MG/DL (8.8-10.2); CARBON DIOXIDE LEVEL 34 MEQ/L (21-32); CHLORIDE LEVEL 100 MEQ/L (98-107); CREATININE FOR GFR 0.75 MG/DL (0.55-1.30); GLOMERULAR FILTRATION RATE > 60.0 (>39); GLUCOSE, FASTING 104 MG/DL (70-100); MAGNESIUM LEVEL 1.7 MG/DL (1.8-2.4); POTASSIUM SERUM 3.3 MEQ/L (3.5-5.1); SODIUM LEVEL 141 MEQ/L (136-145); TOTAL PROTEIN 6.5 GM/DL (6.4-8.2)
[2021-09-09] MEDS: MAG SULF 1GM/100ML (MAG RUN) 1 GM in IV 1 EA IV SCH ×2 (07:14→08:52)
[2021-09-09] MEDS: NORCO, ANEXSIA 5/325MG TABLET (HYDROcodone/ACETAMINOPHEN) PO PRN ×2 (08:47→21:37)
[2021-09-09] MEDS: ROSUVASTATIN 10 MG TAB (CRESTOR) PO SCH (08:47)
[2021-09-09] MEDS: DOCUSATE SODIUM 100MG CAPSULE PO SCH ×2 (08:47→21:39)
[2021-09-09] MEDS: SERTRALINE 100 MG TAB PO SCH (08:47)
[2021-09-09] MEDS: PANTOPRAZOLE 40MG TAB (PROTONIX) PO SCH (08:47)
[2021-09-09] MEDS: ENOXAPARIN 40MG/0.4ML SYRINGE (J1650 PER 10MG) SC SCH ×2 (08:47→21:41)
[2021-09-09] MEDS: guaiFENesin ER 600 MG TAB PO SCH ×2 (08:48→21:38)
[2021-09-09] MEDS: INSULIN LISPRO (NovoLOG) PER UNIT SC SCH ×4 (08:48→21:39)
[2021-09-09] MEDS: dexameTHASONE 4 MG/ML 1ML VIAL (J1100 PER 1MG) IV SCH (08:49)
[2021-09-09] MEDS: ASPIRIN 81MG ENTERIC TABLET PO SCH (08:49)
[2021-09-09] MEDS: POTASSIUM CHLORIDE 10MEQ SR TABLET PO SCH ×2 (08:49→21:33)
[2021-09-09] MEDS: CLOPIDOGREL 75 MG TAB PO SCH (08:49)
[2021-09-09] MEDS: NICOTINE 21MG/24HR 1 EA TRANSDERMAL TD SCH (08:49)
[2021-09-09] MEDS: LEVEMIR (INSULIN DETEMIR) 1 UNITS/0.01ML SC SCH ×2 (08:51→21:40)
[2021-09-09 12:00] VITALS: BP 133/49
[2021-09-09 19:36] VITALS: BP 141/63
[2021-09-09 21:37] VITALS: BP 132/59
[2021-09-09] MEDS: DOXEPIN 25 MG CAP PO SCH (21:38)
[2021-09-09] MEDS: REMDESIVIR 100 MG in NS 250 ML IV SCH (22:24)
[2021-09-09] MEDS: SODIUM CHLORIDE 0.9% INJ 10 ML SYR IV SCH (23:28)
[2021-09-09] MEDS: RAMELTEON 8 MG TAB (ROZEREM) PO PRN (23:33)
[2021-09-10] MEDS: IPRATROPIUM 0.5MG/ALBUTEROL 2.5MG INH SOL UD 3ML (DUONEB) NEB SCH ×4 (02:00→20:47)
[2021-09-10 04:32] VITALS: BP 118/58
[2021-09-10 05:54] VITALS: BP 113/55
[2021-09-10] MEDS: FUROSEMIDE 40MG/4ML VIAL (J1940) IV SCH ×2 (05:55→14:31)
[2021-09-10 06:22] LABS: BASO % 0.1 % (0.0-1.0); EOS % 0.3 % (0.0-3.0); HEMATOCRIT 32.6 % (36.0-47.0); HEMOGLOBIN 9.2 g/dl (12.0-15.5); LYMPH # 1.4 10^3/uL (1.5-5.0); LYMPH % 16.1 % (24.0-44.0); MEAN CORPUSCULAR HEMOGLOBIN 19.5 pg (27.0-33.0); MEAN CORPUSCULAR HGB CONC 28.2 g/dl (32.0-36.5); MEAN CORPUSCULAR VOLUME 68.9 fl (80.0-96.0); MONO # 0.6 10^3/uL (0.0-0.8); MONO % 6.8 % (2.0-8.0); NEUTROPHILS # 6.6 10^3/uL (1.5-8.5); NEUTROPHILS % 76.1 % (36.0-66.0); PLATELET COUNT, AUTOMATED 159 10^3/uL (150-450); RED BLOOD COUNT 4.73 10^6/uL (4.00-5.40); WHITE BLOOD COUNT 8.6 10^3/uL (4.0-10.0)
[2021-09-10 06:41] LABS: ALBUMIN 2.9 GM/DL (3.2-5.2); ALT/SGPT 12 U/L (12-78); BILIRUBIN,TOTAL 0.4 MG/DL (0.2-1.0); BLOOD UREA NITROGEN 25 MG/DL (7-18); CALCIUM LEVEL 8.7 MG/DL (8.8-10.2); CARBON DIOXIDE LEVEL 33 MEQ/L (21-32); CHLORIDE LEVEL 104 MEQ/L (98-107); CREATININE FOR GFR 0.85 MG/DL (0.55-1.30); GLOMERULAR FILTRATION RATE > 60.0 (>39); GLUCOSE, FASTING 136 MG/DL (70-100); POTASSIUM SERUM 3.9 MEQ/L (3.5-5.1); SODIUM LEVEL 142 MEQ/L (136-145); TOTAL PROTEIN 7.4 GM/DL (6.4-8.2)
[2021-09-10] MEDS: ASPIRIN 81MG ENTERIC TABLET PO SCH (08:03)
[2021-09-10] MEDS: SERTRALINE 100 MG TAB PO SCH (08:03)
[2021-09-10] MEDS: INSULIN LISPRO (NovoLOG) PER UNIT SC SCH ×4 (08:03→21:13)
[2021-09-10] MEDS: DOCUSATE SODIUM 100MG CAPSULE PO SCH ×2 (08:03→21:12)
[2021-09-10] MEDS: POTASSIUM CHLORIDE 10MEQ SR TABLET PO SCH ×2 (08:04→21:12)
[2021-09-10] MEDS: ROSUVASTATIN 10 MG TAB (CRESTOR) PO SCH (08:04)
[2021-09-10] MEDS: CLOPIDOGREL 75 MG TAB PO SCH (08:04)
[2021-09-10] MEDS: PANTOPRAZOLE 40MG TAB (PROTONIX) PO SCH (08:04)
[2021-09-10] MEDS: guaiFENesin ER 600 MG TAB PO SCH ×2 (08:04→21:12)
[2021-09-10] MEDS: ENOXAPARIN 40MG/0.4ML SYRINGE (J1650 PER 10MG) SC SCH ×2 (08:05→21:13)
[2021-09-10] MEDS: LEVEMIR (INSULIN DETEMIR) 1 UNITS/0.01ML SC SCH (08:05)
[2021-09-10] MEDS: NICOTINE 21MG/24HR 1 EA TRANSDERMAL TD SCH (08:06)
[2021-09-10 09:21] LABS: FERRITIN 29 NG/ML (8-252)
[2021-09-10] MEDS: dexameTHASONE 4 MG/ML 1ML VIAL (J1100 PER 1MG) IV SCH (09:46)
[2021-09-10] MEDS: NORCO, ANEXSIA 5/325MG TABLET (HYDROcodone/ACETAMINOPHEN) PO PRN ×2 (10:25→21:30)
[2021-09-10 12:00] VITALS: BP 103/54
[2021-09-10 14:25] VITALS: BP 121/56
[2021-09-10 18:45] VITALS: BP 117/45
[2021-09-10] MEDS ORDERED: LEVEMIR (INSULIN DETEMIR) 1 UNITS/0.01ML SC SCH (21:00)
[2021-09-10] MEDS: DOXEPIN 25 MG CAP PO SCH (21:12)
[2021-09-10] MEDS: RAMELTEON 8 MG TAB (ROZEREM) PO PRN (21:29)
[2021-09-10] MEDS: REMDESIVIR 100 MG in NS 250 ML IV SCH (21:32)
[2021-09-10 21:42] VITALS: BP 118/47
[2021-09-10] MEDS: SODIUM CHLORIDE 0.9% INJ 10 ML SYR IV SCH (22:57)
[2021-09-11] MEDS: IPRATROPIUM 0.5MG/ALBUTEROL 2.5MG INH SOL UD 3ML (DUONEB) NEB SCH ×4 (01:01→20:37)
[2021-09-11 06:00] VITALS: BP 114/51
[2021-09-11 07:30] LABS: BASO % 0.2 % (0.0-1.0); EOS # 0.1 10^3/uL (0.0-0.5); EOS % 0.8 % (0.0-3.0); HEMATOCRIT 29.4 % (36.0-47.0); HEMOGLOBIN 8.3 g/dl (12.0-15.5); LYMPH # 1.6 10^3/uL (1.5-5.0); LYMPH % 18.6 % (24.0-44.0); MEAN CORPUSCULAR HEMOGLOBIN 19.4 pg (27.0-33.0); MEAN CORPUSCULAR HGB CONC 28.2 g/dl (32.0-36.5); MEAN CORPUSCULAR VOLUME 68.9 fl (80.0-96.0); MONO # 0.7 10^3/uL (0.0-0.8); MONO % 7.7 % (2.0-8.0); NEUTROPHILS # 6.1 10^3/uL (1.5-8.5); NEUTROPHILS % 72.1 % (36.0-66.0); PLATELET COUNT, AUTOMATED 146 10^3/uL (150-450); RED BLOOD COUNT 4.27 10^6/uL (4.00-5.40); WHITE BLOOD COUNT 8.4 10^3/uL (4.0-10.0)
[2021-09-11 08:02] LABS: ALBUMIN 2.7 GM/DL (3.2-5.2); ALT/SGPT 17 U/L (12-78); BILIRUBIN,TOTAL 0.3 MG/DL (0.2-1.0); BLOOD UREA NITROGEN 24 MG/DL (7-18); CALCIUM LEVEL 8.8 MG/DL (8.8-10.2); CARBON DIOXIDE LEVEL 31 MEQ/L (21-32); CHLORIDE LEVEL 105 MEQ/L (98-107); CREATININE FOR GFR 0.71 MG/DL (0.55-1.30); GLOMERULAR FILTRATION RATE > 60.0 (>39); GLUCOSE, FASTING 228 MG/DL (70-100); MAGNESIUM LEVEL 1.8 MG/DL (1.8-2.4); SODIUM LEVEL 142 MEQ/L (136-145)
[2021-09-11] MEDS: SERTRALINE 100 MG TAB PO SCH (08:47)
[2021-09-11] MEDS: ROSUVASTATIN 10 MG TAB (CRESTOR) PO SCH (08:47)
[2021-09-11] MEDS: ASPIRIN 81MG ENTERIC TABLET PO SCH (08:47)
[2021-09-11] MEDS: DOCUSATE SODIUM 100MG CAPSULE PO SCH ×2 (08:47→21:38)
[2021-09-11] MEDS: FUROSEMIDE 40 MG TAB PO SCH ×2 (08:48→17:20)
[2021-09-11] MEDS: CLOPIDOGREL 75 MG TAB PO SCH (08:48)
[2021-09-11] MEDS: PANTOPRAZOLE 40MG TAB (PROTONIX) PO SCH (08:48)
[2021-09-11] MEDS: guaiFENesin ER 600 MG TAB PO SCH ×2 (08:48→21:38)
[2021-09-11] MEDS: POTASSIUM CHLORIDE 10MEQ SR TABLET PO SCH ×2 (08:49→21:38)
[2021-09-11] MEDS: ENOXAPARIN 40MG/0.4ML SYRINGE (J1650 PER 10MG) SC SCH ×2 (08:49→21:40)
[2021-09-11] MEDS: NICOTINE 21MG/24HR 1 EA TRANSDERMAL TD SCH (08:50)
[2021-09-11] MEDS: LEVEMIR (INSULIN DETEMIR) 1 UNITS/0.01ML SC SCH ×2 (08:51→21:39)
[2021-09-11] MEDS: INSULIN LISPRO (NovoLOG) PER UNIT SC SCH ×4 (08:51→21:40)
[2021-09-11] MEDS: dexameTHASONE 4 MG/ML 1ML VIAL (J1100 PER 1MG) IV SCH (08:52)
[2021-09-11] MEDS ORDERED: FUROSEMIDE 40MG/4ML VIAL (J1940) IV SCH (09:00)
[2021-09-11] MEDS: NORCO, ANEXSIA 5/325MG TABLET (HYDROcodone/ACETAMINOPHEN) PO PRN ×2 (09:17→21:57)
[2021-09-11] MEDS ORDERED: MAG SULF 1GM/100ML (MAG RUN) 1 GM in IV 1 EA IV ONE (11:00)
[2021-09-11 15:18] VITALS: BP 117/52
[2021-09-11] MEDS: DOXEPIN 25 MG CAP PO SCH (21:38)
[2021-09-11] MEDS: REMDESIVIR 100 MG in NS 250 ML IV SCH (21:40)
[2021-09-11] MEDS: RAMELTEON 8 MG TAB (ROZEREM) PO PRN (21:57)
[2021-09-11 22:00] VITALS: BP 116/59
[2021-09-11] MEDS: SODIUM CHLORIDE 0.9% INJ 10 ML SYR IV SCH (23:07)
[2021-09-12] MEDS: IPRATROPIUM 0.5MG/ALBUTEROL 2.5MG INH SOL UD 3ML (DUONEB) NEB SCH ×2 (01:52→07:40)
[2021-09-12 06:00] VITALS: BP 116/60
[2021-09-12] MEDS ORDERED: HYDROCORTISONE 1% CREAM 30 GM TOP ONE (06:40)
[2021-09-12 07:26] LABS: BASO % 0.4 % (0.0-1.0); EOS # 0.1 10^3/uL (0.0-0.5); EOS % 1.2 % (0.0-3.0); HEMOGLOBIN 8.4 g/dl (12.0-15.5); LYMPH # 2.1 10^3/uL (1.5-5.0); MEAN CORPUSCULAR HEMOGLOBIN 18.9 pg (27.0-33.0); MEAN CORPUSCULAR VOLUME 67.4 fl (80.0-96.0); MONO # 0.7 10^3/uL (0.0-0.8); MONO % 9.1 % (2.0-8.0); NEUTROPHILS # 4.4 10^3/uL (1.5-8.5); NEUTROPHILS % 59.9 % (36.0-66.0); PLATELET COUNT, AUTOMATED 147 10^3/uL (150-450); RED BLOOD COUNT 4.45 10^6/uL (4.00-5.40); WHITE BLOOD COUNT 7.4 10^3/uL (4.0-10.0)
[2021-09-12] MEDS: INSULIN LISPRO (NovoLOG) PER UNIT SC SCH ×4 (07:30→21:51)
[2021-09-12 07:53] LABS: ALBUMIN 2.7 GM/DL (3.2-5.2); ALT/SGPT 14 U/L (12-78); BILIRUBIN,TOTAL 0.3 MG/DL (0.2-1.0); BLOOD UREA NITROGEN 25 MG/DL (7-18); CALCIUM LEVEL 8.7 MG/DL (8.8-10.2); CARBON DIOXIDE LEVEL 31 MEQ/L (21-32); CHLORIDE LEVEL 105 MEQ/L (98-107); CREATININE FOR GFR 0.66 MG/DL (0.55-1.30); GLOMERULAR FILTRATION RATE > 60.0 (>39); GLUCOSE, FASTING 88 MG/DL (70-100); POTASSIUM SERUM 4.3 MEQ/L (3.5-5.1); SODIUM LEVEL 142 MEQ/L (136-145); TOTAL PROTEIN 6.4 GM/DL (6.4-8.2)
[2021-09-12] MEDS: ASPIRIN 81MG ENTERIC TABLET PO SCH (08:23)
[2021-09-12] MEDS: guaiFENesin ER 600 MG TAB PO SCH ×2 (08:23→21:23)
[2021-09-12] MEDS: ROSUVASTATIN 10 MG TAB (CRESTOR) PO SCH (08:23)
[2021-09-12] MEDS: PANTOPRAZOLE 40MG TAB (PROTONIX) PO SCH (08:23)
[2021-09-12] MEDS: FUROSEMIDE 40 MG TAB PO SCH ×2 (08:24→17:10)
[2021-09-12] MEDS: CLOPIDOGREL 75 MG TAB PO SCH (08:24)
[2021-09-12] MEDS: DOCUSATE SODIUM 100MG CAPSULE PO SCH ×2 (08:24→21:23)
[2021-09-12] MEDS: SERTRALINE 100 MG TAB PO SCH (08:24)
[2021-09-12] MEDS: POTASSIUM CHLORIDE 10MEQ SR TABLET PO SCH ×2 (08:25→21:23)
[2021-09-12] MEDS: NICOTINE 21MG/24HR 1 EA TRANSDERMAL TD SCH (08:25)
[2021-09-12] MEDS: dexameTHASONE 4 MG/ML 1ML VIAL (J1100 PER 1MG) IV SCH (08:26)
[2021-09-12] MEDS: ENOXAPARIN 40MG/0.4ML SYRINGE (J1650 PER 10MG) SC SCH ×2 (08:26→21:22)
[2021-09-12] MEDS: NORCO, ANEXSIA 5/325MG TABLET (HYDROcodone/ACETAMINOPHEN) PO PRN ×2 (08:39→21:24)
[2021-09-12] MEDS ORDERED: LEVEMIR (INSULIN DETEMIR) 1 UNITS/0.01ML SC SCH ×2 (09:00→21:00)
[2021-09-12] MEDS: LEVEMIR (INSULIN DETEMIR) 1 UNITS/0.01ML SC SCH (09:01)
[2021-09-12 11:52] LABS: HEMOGLOBIN A1c 10.1 %
[2021-09-12 13:39] VITALS: BP 95/45
[2021-09-12] MEDS: RAMELTEON 8 MG TAB (ROZEREM) PO PRN (21:23)
[2021-09-12] MEDS: DOXEPIN 25 MG CAP PO SCH (21:24)
[2021-09-12] MEDS: REMDESIVIR 100 MG in NS 250 ML IV SCH (21:25)
[2021-09-12] MEDS: SODIUM CHLORIDE 0.9% INJ 10 ML SYR IV SCH (23:56)
[2021-09-13 06:00] VITALS: BP 125/66
[2021-09-13] MEDS: INSULIN LISPRO (NovoLOG) PER UNIT SC SCH ×2 (07:30→12:02)
[2021-09-13] MEDS: DOCUSATE SODIUM 100MG CAPSULE PO SCH (09:00)
[2021-09-13] MEDS: dexameTHASONE 4 MG/ML 1ML VIAL (J1100 PER 1MG) IV SCH (09:32)
[2021-09-13] MEDS: POTASSIUM CHLORIDE 10MEQ SR TABLET PO SCH (09:33)
[2021-09-13] MEDS: ENOXAPARIN 40MG/0.4ML SYRINGE (J1650 PER 10MG) SC SCH (09:33)
[2021-09-13] MEDS: NICOTINE 21MG/24HR 1 EA TRANSDERMAL TD SCH (09:33)
[2021-09-13] MEDS: ROSUVASTATIN 10 MG TAB (CRESTOR) PO SCH (09:34)
[2021-09-13] MEDS: ASPIRIN 81MG ENTERIC TABLET PO SCH (09:34)
[2021-09-13] MEDS: PANTOPRAZOLE 40MG TAB (PROTONIX) PO SCH (09:35)
[2021-09-13] MEDS: CLOPIDOGREL 75 MG TAB PO SCH (09:35)
[2021-09-13] MEDS: guaiFENesin ER 600 MG TAB PO SCH (09:36)
[2021-09-13] MEDS: SERTRALINE 100 MG TAB PO SCH (09:37)
[2021-09-13] MEDS: FUROSEMIDE 40 MG TAB PO SCH (09:37)
[2021-09-13] MEDS: LEVEMIR (INSULIN DETEMIR) 1 UNITS/0.01ML SC SCH (10:39)
[2021-09-13 14:00] VITALS: BP 129/66
[2021-09-13] MEDS ORDERED: POTA-136 PO (14:24)
[2021-09-13] MEDS ORDERED: NICO21PAT TD (14:24)
[2021-09-13] MEDS ORDERED: TORS20TA2 PO (14:24)
[2021-09-13] MEDS ORDERED: MUCI600T31 PO (14:24)
[2021-09-13] MEDS ORDERED: PRED10TA2 PO (14:24)
[2021-09-13] MEDS ORDERED: FERR325T3 PO (14:24)
[2021-09-13] MEDS ORDERED: COLA100C5 PO (14:24)
== END 2021-09-13 16:07 | disposition home or self-care (01) | DRG 291 ==
LOC: M ED 13:26 → M ED INP 18:08 → CANRESERV 21:43 → ENRESERV 21:43 → M 4MAIN 09-06 01:15 → M MS5PR 09-10 18:20
PROVIDERS: ADMIT Internal Medicine; ATTEND Internal Medicine Nephrology
PROC: B246ZZZ Ultrasonography of Right and Left Heart (ICD-10-PCS; principal; 2021-09-06)
PROC: XW033E5 Introduction of Remdesivir Anti-infective into Peripheral Vein, Percutaneous Approach, New Technology Group 5 (ICD-10-PCS; 2021-09-06)
PROC: 3E0333Z Introduction of Anti-inflammatory into Peripheral Vein, Percutaneous Approach (ICD-10-PCS; 2021-09-06)
DX: I11.0 Hypertensive heart disease with heart failure (principal); U07.1 COVID-19; I50.43 Acute on chronic combined systolic (congestive) and diastolic (congestive) heart failure; I25.10 Atherosclerotic heart disease of native coronary artery without angina pectoris; Z95.5 Presence of coronary angioplasty implant and graft; I73.9 Peripheral vascular disease, unspecified; Z95.818 Presence of other cardiac implants and grafts; J44.9 Chronic obstructive pulmonary disease, unspecified; E11.51 Type 2 diabetes mellitus with diabetic peripheral angiopathy without gangrene; E78.5 Hyperlipidemia, unspecified; Z85.51 Personal history of malignant neoplasm of bladder; K76.0 Fatty (change of) liver, not elsewhere classified; F32.A Depression, unspecified; F41.9 Anxiety disorder, unspecified; M79.7 Fibromyalgia; K21.9 Gastro-esophageal reflux disease without esophagitis; Z79.82 Long term (current) use of aspirin; Z79.4 Long term (current) use of insulin; Z79.891 Long term (current) use of opiate analgesic; F17.210 Nicotine dependence, cigarettes, uncomplicated; I27.20 Pulmonary hypertension, unspecified; Z79.899 Other long term (current) drug therapy; Z88.0 Allergy status to penicillin; Z88.1 Allergy status to other antibiotic agents; Z88.8 Allergy status to other drugs, medicaments and biological substances; Z91.048 Other nonmedicinal substance allergy status; I34.0 Nonrheumatic mitral (valve) insufficiency; R09.02 Hypoxemia; R91.8 Other nonspecific abnormal finding of lung field; E87.5 Hyperkalemia; E83.42 Hypomagnesemia; G47.00 Insomnia, unspecified; Z85.41 Personal history of malignant neoplasm of cervix uteri

== ENCOUNTER → 2021-12-07 | Outpatient (CLI) | payer MEDICARE, MEDICAID ==
[~2021-12-07] MED LIST changes: +ADDE20TA PO; +AMLO1TAB25 PO; +ASPI81TA26 PO; +CLOP75TA2 PO; +COLA100C5 PO; +DOXE25CA PO; -DULE200A; +FERR325T3 PO; +HYDR-3363 PO; +HYDR-3490 PO; +LEVE1INJ5 SC; +LEVOTAB10 PO; +MOME13HF7; +MUCI600T31 PO; +NICO21PAT TD; +POTA-136 PO; +PRED10TA2 PO; +ROSU10TA6 PO; +SERT50TA29 PO; +TORS20TA2 PO; +ZOLO100T PO
[2021-12-07 17:47] LABS: BASO # 0.1 10^3/uL (0.0-0.2); BASO % 0.8 % (0.0-1.0); EOS # 0.2 10^3/uL (0.0-0.5); EOS % 3.2 % (0.0-3.0); HEMATOCRIT 30.4 % (36.0-47.0); HEMOGLOBIN 8.2 g/dl (12.0-15.5); MEAN CORPUSCULAR HEMOGLOBIN 17.5 pg (27.0-33.0); MEAN CORPUSCULAR VOLUME 64.8 fl (80.0-96.0); MONO # 0.5 10^3/uL (0.0-0.8); MONO % 7.2 % (2.0-8.0); NEUTROPHILS # 4.3 10^3/uL (1.5-8.5); NEUTROPHILS % 60.5 % (36.0-66.0); PLATELET COUNT, AUTOMATED 153 10^3/uL (150-450); RED BLOOD COUNT 4.69 10^6/uL (4.00-5.40); WHITE BLOOD COUNT 7.1 10^3/uL (4.0-10.0)
[2021-12-07 18:36] LABS: ALT/SGPT 13 U/L (12-78); BILIRUBIN,TOTAL 0.5 MG/DL (0.2-1.0); BLOOD UREA NITROGEN 18 MG/DL (7-18); CALCIUM LEVEL 8.6 MG/DL (8.8-10.2); CARBON DIOXIDE LEVEL 28 MEQ/L (21-32); CHLORIDE LEVEL 106 MEQ/L (98-107); CHOLESTEROL LEVEL 74 MG/DL (<200); CHOLESTEROL RISK RATIO 2.642 (<5); CREATININE FOR GFR 0.66 MG/DL (0.55-1.30); GLOMERULAR FILTRATION RATE > 60.0 (>39); GLUCOSE, FASTING 203 MG/DL (70-100); HDL CHOLESTEROL 28 MG/DL (>40); LDL CHOLESTEROL 29 MG/DL (<100); MAGNESIUM LEVEL 1.8 MG/DL (1.8-2.4); NON-HDL-C 46 MG/DL; NT-PRO BNP 4963 PG/ML (<125); POTASSIUM SERUM 4.2 MEQ/L (3.5-5.1); SODIUM LEVEL 137 MEQ/L (136-145); TOTAL PROTEIN 7.2 GM/DL (6.4-8.2); TRIGLYCERIDES LEVEL 87 MG/DL (<150)
[2021-12-07 19:10] LABS: TOTAL 25(OH) VITAMIN D 39.6 NG/ML (30.0-100.0)
[2021-12-07 19:55] LABS: HEMOGLOBIN A1c 10.9 %
== END ==
LOC: M PLALAB 15:42
PROVIDERS: ATTEND Nurse Practitioner Family
DX: I50.9 Heart failure, unspecified (principal); I10 Essential (primary) hypertension; E78.5 Hyperlipidemia, unspecified; E11.9 Type 2 diabetes mellitus without complications; E55.9 Vitamin D deficiency, unspecified

== ENCOUNTER 2021-12-08 17:20 | Inpatient (IN) | payer MEDICARE, MEDICAID ==
[~2021-12-08] VITALS: Ht 157.5 cm; Wt 76.5 kg
[2021-12-08 19:15] LABS: BASO % 0.4 % (0.0-1.0); EOS # 0.3 10^3/uL (0.0-0.5); EOS % 3.9 % (0.0-3.0); HEMATOCRIT 30.1 % (36.0-47.0); LYMPH # 1.8 10^3/uL (1.5-5.0); LYMPH % 26.2 % (24.0-44.0); MEAN CORPUSCULAR HGB CONC 26.6 g/dl (32.0-36.5); MONO # 0.5 10^3/uL (0.0-0.8); NEUTROPHILS # 4.2 10^3/uL (1.5-8.5); NEUTROPHILS % 62.2 % (36.0-66.0); PLATELET COUNT, AUTOMATED 145 10^3/uL (150-450); WHITE BLOOD COUNT 6.7 10^3/uL (4.0-10.0)
[2021-12-08 19:35] LABS: CK-MB VALUE MASS 2.7 NG/ML (<3.6); MB/CK RELATIVE INDEX 4.35 (< OR =4)
[2021-12-08 19:37] LABS: ALT/SGPT 13 U/L (12-78); BILIRUBIN,DIRECT 0.2 MG/DL (0.0-0.2); BILIRUBIN,TOTAL 0.5 MG/DL (0.2-1.0); BLOOD UREA NITROGEN 16 MG/DL (7-18); CALCIUM LEVEL 8.2 MG/DL (8.8-10.2); CARBON DIOXIDE LEVEL 24 MEQ/L (21-32); CHLORIDE LEVEL 108 MEQ/L (98-107); CREATININE FOR GFR 0.72 MG/DL (0.55-1.30); GLOMERULAR FILTRATION RATE > 60.0 (>39); GLUCOSE, FASTING 152 MG/DL (70-100); NT-PRO BNP 4984 PG/ML (<125); POTASSIUM SERUM 4.1 MEQ/L (3.5-5.1); SODIUM LEVEL 139 MEQ/L (136-145); TOTAL PROTEIN 7.2 GM/DL (6.4-8.2)
[2021-12-08] MEDS ORDERED: FUROSEMIDE 40MG/4ML VIAL (J1940) IV ONE (19:55)
[2021-12-08] MEDS ORDERED: HYDR-3490 PO (20:53)
[2021-12-08] MEDS ORDERED: HOME MED LIST COMPLETE! XX SCH (20:55)
[2021-12-08] MEDS ORDERED: IPRATROPIUM 0.5MG/ALBUTEROL 2.5MG INH SOL UD 3ML (DUONEB) NEB ONE (21:10)
[2021-12-08] MEDS ORDERED: GLUCOSE 4GM CHEW TABLET PO PRN (21:15)
[2021-12-08] MEDS ORDERED: ALBUTEROL SULFATE 2.5 MG/0.5 ML INH NEB SOLN NEB PRN (21:15)
[2021-12-08] MEDS ORDERED: LEVEMIR (INSULIN DETEMIR) 1 UNITS/0.01ML SC SCH (21:15)
[2021-12-08] MEDS ORDERED: DEXTROSE 50% 50 ML SYRINGE IV PRN (21:15)
[2021-12-08] MEDS ORDERED: ACETAMINOPHEN TAB 650MG DOSE (2X325MG) PO PRN (21:15)
[2021-12-08] MEDS ORDERED: GLUCAGON INJ 1MG VIAL SC PRN (21:15)
[2021-12-08 21:25] LABS: RSV AMPLIFICATION NEGATIVE (NEGATIVE)
[2021-12-08] MEDS ORDERED: NICOTINE 21MG/24HR 1 EA TRANSDERMAL TD ONE (22:20)
[2021-12-08] MEDS: methylPREDNISolone 40MG 1ML VIAL IV SCH (22:33)
[2021-12-08] MEDS: INSULIN LISPRO (NovoLOG) PER UNIT SC SCH (22:51)
[2021-12-09] MEDS ORDERED: IPRATROPIUM 0.5MG/ALBUTEROL 2.5MG INH SOL UD 3ML (DUONEB) NEB SCH (02:00)
[2021-12-09] MEDS: methylPREDNISolone 40MG 1ML VIAL IV SCH (05:54)
[2021-12-09] MEDS ORDERED: HEPARIN SOD (PORCINE) 5000UNITS/ML 1ML VIAL/SYRINGE SC SCH (06:00)
[2021-12-09] MEDS: INSULIN LISPRO (NovoLOG) PER UNIT SC SCH ×4 (06:16→20:07)
[2021-12-09] MEDS: IPRATROPIUM 0.5MG/ALBUTEROL 2.5MG INH SOL UD 3ML (DUONEB) NEB SCH ×2 (08:05→19:51)
[2021-12-09 08:06] LABS: CREATININE FOR GFR 1.04 MG/DL (0.55-1.30); GLOMERULAR FILTRATION RATE 55.6 (>39); POTASSIUM SERUM 4.1 MEQ/L (3.5-5.1)
[2021-12-09 08:07] LABS: CALCIUM LEVEL 8.3 MG/DL (8.8-10.2); PERCENT SATURATION 3.1 % (13.2-45.0)
[2021-12-09] MEDS ORDERED: MIRALAX *UNIT DOSE* 17GM PACKET PO PRN (08:10)
[2021-12-09 08:47] LABS: HEMATOCRIT 28.9 % (36.0-47.0); HEMOGLOBIN 7.6 g/dl (12.0-15.5); MEAN CORPUSCULAR HEMOGLOBIN 16.9 pg (27.0-33.0); MEAN CORPUSCULAR HGB CONC 26.3 g/dl (32.0-36.5); MEAN CORPUSCULAR VOLUME 64.4 fl (80.0-96.0); PLATELET COUNT, AUTOMATED 121 10^3/uL (150-450); RED BLOOD COUNT 4.49 10^6/uL (4.00-5.40); WHITE BLOOD COUNT 4.9 10^3/uL (4.0-10.0)
[2021-12-09] MEDS: AMPHETAMINE/DEXTROAMPHETAMINE 5 MG *ER* CAPSULE (ADDERALL XR) PO SCH ×3 (08:54→12:17)
[2021-12-09] MEDS: DOCUSATE SODIUM 100MG CAPSULE PO SCH ×2 (08:55→20:06)
[2021-12-09] MEDS: ASPIRIN 81MG ENTERIC TABLET PO SCH (08:55)
[2021-12-09] MEDS: ROSUVASTATIN 10 MG TAB (CRESTOR) PO SCH (08:55)
[2021-12-09] MEDS: CLOPIDOGREL 75 MG TAB PO SCH (08:55)
[2021-12-09] MEDS: PANTOPRAZOLE 40MG TAB (PROTONIX) PO SCH (08:55)
[2021-12-09] MEDS: hydroCHLOROthiazide 12.5 MG CAPSULE PO SCH (08:55)
[2021-12-09] MEDS: SERTRALINE 100 MG TAB PO SCH (08:55)
[2021-12-09] MEDS: FERROUS SULFATE 325MG TAB PO SCH ×2 (08:55→20:06)
[2021-12-09] MEDS: LEVEMIR (INSULIN DETEMIR) 1 UNITS/0.01ML SC SCH ×2 (08:56→20:09)
[2021-12-09] MEDS: METOPROLOL TART 12.5 MG PER 1/2 TAB PO SCH ×2 (08:56→20:10)
[2021-12-09] MEDS: FUROSEMIDE 40MG/4ML VIAL (J1940) IV SCH ×2 (08:56→16:11)
[2021-12-09] MEDS ORDERED: FUROSEMIDE 40MG/4ML VIAL (J1940) IV SCH (09:00)
[2021-12-09 09:06] LABS: INR 1.13; PROTHROMBIN TIME 14.9 SECONDS (12.7-14.5)
[2021-12-09 09:24] LABS: BILIRUBIN,TOTAL 0.6 MG/DL (0.2-1.0); CALCIUM LEVEL 8.2 MG/DL (8.8-10.2); CREATININE FOR GFR 1.04 MG/DL (0.55-1.30); GLOMERULAR FILTRATION RATE 55.6 (>39); POTASSIUM SERUM 4.3 MEQ/L (3.5-5.1); TOTAL PROTEIN 7.1 GM/DL (6.4-8.2)
[2021-12-09] MEDS: NICOTINE 7 MG/24 HR TRANSDERMAL TD SCH (10:11)
[2021-12-09] MEDS: predniSONE 20 MG TAB PO SCH (12:42)
[2021-12-09 13:21] VITALS: BP 101/54
[2021-12-09] MEDS ORDERED: ENOXAPARIN 40MG/0.4ML SYRINGE (J1650 PER 10MG) SC ONE (14:00)
[2021-12-09 15:37] VITALS: BP 106/55
[2021-12-09] MEDS: NORCO, ANEXSIA 5/325MG TABLET (HYDROcodone/ACETAMINOPHEN) PO PRN (16:12)
[2021-12-09 20:00] VITALS: BP 117/62
[2021-12-09] MEDS: SENNA 8.6 MG TAB (SENOKOT) PO SCH (20:06)
[2021-12-10] VITALS (9 sets, daily range): BP systolic 101–139; BP diastolic 53–72
[2021-12-10] MEDS: AMPHETAMINE/DEXTROAMPHETAMINE 5 MG *ER* CAPSULE (ADDERALL XR) PO SCH ×2 (05:18→12:00)
[2021-12-10 06:26] LABS: HEMATOCRIT 27.4 % (36.0-47.0); HEMOGLOBIN 7.5 g/dl (12.0-15.5); MEAN CORPUSCULAR HEMOGLOBIN 17.2 pg (27.0-33.0); MEAN CORPUSCULAR HGB CONC 27.4 g/dl (32.0-36.5); MEAN CORPUSCULAR VOLUME 62.8 fl (80.0-96.0); PLATELET COUNT, AUTOMATED 132 10^3/uL (150-450); RED BLOOD COUNT 4.36 10^6/uL (4.00-5.40); WHITE BLOOD COUNT 10.2 10^3/uL (4.0-10.0)
[2021-12-10 06:56] LABS: ALT/SGPT 11 U/L (12-78); BILIRUBIN,TOTAL 0.4 MG/DL (0.2-1.0); BLOOD UREA NITROGEN 28 MG/DL (7-18); CALCIUM LEVEL 8.6 MG/DL (8.8-10.2); CARBON DIOXIDE LEVEL 30 MEQ/L (21-32); CHLORIDE LEVEL 102 MEQ/L (98-107); CREATININE FOR GFR 0.86 MG/DL (0.55-1.30); GLOMERULAR FILTRATION RATE > 60.0 (>39); GLUCOSE, FASTING 120 MG/DL (70-100); POTASSIUM SERUM 3.5 MEQ/L (3.5-5.1); SODIUM LEVEL 135 MEQ/L (136-145); TOTAL PROTEIN 6.9 GM/DL (6.4-8.2)
[2021-12-10] MEDS: IPRATROPIUM 0.5MG/ALBUTEROL 2.5MG INH SOL UD 3ML (DUONEB) NEB SCH ×2 (07:03→19:08)
[2021-12-10] MEDS ORDERED: METO1TAB87 PO (07:58)
[2021-12-10] MEDS ORDERED: FERR1TAB8 PO (07:58)
[2021-12-10] MEDS ORDERED: PRED20TA PO (07:58)
[2021-12-10] MEDS ORDERED: SENN18TA PO (07:58)
[2021-12-10] MEDS ORDERED: COLA100C5 PO (07:58)
[2021-12-10] MEDS ORDERED: LASI40TA9 PO (07:58)
[2021-12-10] MEDS: BISACODYL 10 MG SUPP PR SCH ×2 (08:00→20:53)
[2021-12-10] MEDS: ROSUVASTATIN 10 MG TAB (CRESTOR) PO SCH (08:24)
[2021-12-10] MEDS: DOCUSATE SODIUM 100MG CAPSULE PO SCH ×2 (08:24→20:53)
[2021-12-10] MEDS: METOPROLOL TART 12.5 MG PER 1/2 TAB PO SCH ×2 (08:24→20:52)
[2021-12-10] MEDS: FERROUS SULFATE 325MG TAB PO SCH ×2 (08:24→20:52)
[2021-12-10] MEDS: predniSONE 20 MG TAB PO SCH (08:24)
[2021-12-10] MEDS: ENOXAPARIN 40MG/0.4ML SYRINGE (J1650 PER 10MG) SC SCH (08:25)
[2021-12-10] MEDS: CLOPIDOGREL 75 MG TAB PO SCH (08:25)
[2021-12-10] MEDS: hydroCHLOROthiazide 12.5 MG CAPSULE PO SCH (08:25)
[2021-12-10] MEDS: ASPIRIN 81MG ENTERIC TABLET PO SCH (08:25)
[2021-12-10] MEDS: SERTRALINE 100 MG TAB PO SCH (08:25)
[2021-12-10] MEDS: PANTOPRAZOLE 40MG TAB (PROTONIX) PO SCH (08:25)
[2021-12-10] MEDS: INSULIN LISPRO (NovoLOG) PER UNIT SC SCH ×4 (08:26→20:39)
[2021-12-10] MEDS: FUROSEMIDE 40MG/4ML VIAL (J1940) IV SCH ×2 (08:26→17:31)
[2021-12-10] MEDS: LEVEMIR (INSULIN DETEMIR) 1 UNITS/0.01ML SC SCH ×2 (08:26→20:53)
[2021-12-10] MEDS: NORCO, ANEXSIA 5/325MG TABLET (HYDROcodone/ACETAMINOPHEN) PO PRN (08:26)
[2021-12-10] MEDS: NICOTINE 7 MG/24 HR TRANSDERMAL TD SCH (08:27)
[2021-12-10] MEDS ORDERED: IRON SUCROSE 200 MG in NS 100 ML IV ONE (12:00)
[2021-12-10] MEDS: SENNA 8.6 MG TAB (SENOKOT) PO SCH (20:53)
[2021-12-11] VITALS: BP 115/58
[2021-12-11 04:00] VITALS: BP 139/66
[2021-12-11 07:01] LABS: HEMATOCRIT 30.6 % (36.0-47.0); HEMOGLOBIN 8.6 g/dl (12.0-15.5); MEAN CORPUSCULAR HEMOGLOBIN 18.1 pg (27.0-33.0); MEAN CORPUSCULAR HGB CONC 28.1 g/dl (32.0-36.5); MEAN CORPUSCULAR VOLUME 64.4 fl (80.0-96.0); PLATELET COUNT, AUTOMATED 125 10^3/uL (150-450); RED BLOOD COUNT 4.75 10^6/uL (4.00-5.40); WHITE BLOOD COUNT 10.2 10^3/uL (4.0-10.0)
[2021-12-11] MEDS: AMPHETAMINE/DEXTROAMPHETAMINE 5 MG *ER* CAPSULE (ADDERALL XR) PO SCH ×2 (07:06→11:24)
[2021-12-11] MEDS: INSULIN LISPRO (NovoLOG) PER UNIT SC SCH ×2 (07:30→12:00)
[2021-12-11 08:00] VITALS: BP 171/81
[2021-12-11] MEDS: IPRATROPIUM 0.5MG/ALBUTEROL 2.5MG INH SOL UD 3ML (DUONEB) NEB SCH ×2 (08:00→08:34)
[2021-12-11 08:01] LABS: ALBUMIN 2.9 GM/DL (3.2-5.2); ALT/SGPT 12 U/L (12-78); BILIRUBIN,TOTAL 0.6 MG/DL (0.2-1.0); BLOOD UREA NITROGEN 30 MG/DL (7-18); CALCIUM LEVEL 8.2 MG/DL (8.8-10.2); CARBON DIOXIDE LEVEL 30 MEQ/L (21-32); CHLORIDE LEVEL 101 MEQ/L (98-107); CREATININE FOR GFR 0.75 MG/DL (0.55-1.30); GLOMERULAR FILTRATION RATE > 60.0 (>39); GLUCOSE, FASTING 102 MG/DL (70-100); POTASSIUM SERUM 2.6 MEQ/L (3.5-5.1); SODIUM LEVEL 137 MEQ/L (136-145); TOTAL PROTEIN 6.8 GM/DL (6.4-8.2)
[2021-12-11 08:30] VITALS: BP 144/66
[2021-12-11] MEDS ORDERED: POTA-151 PO (08:53)
[2021-12-11] MEDS ORDERED: TORS20TA2 PO (08:53)
[2021-12-11] MEDS: BISACODYL 10 MG SUPP PR SCH (09:00)
[2021-12-11] MEDS: ENOXAPARIN 40MG/0.4ML SYRINGE (J1650 PER 10MG) SC SCH (09:05)
[2021-12-11] MEDS: ROSUVASTATIN 10 MG TAB (CRESTOR) PO SCH (09:07)
[2021-12-11 09:08] VITALS: BP 144/66
[2021-12-11] MEDS: METOPROLOL TART 12.5 MG PER 1/2 TAB PO SCH (09:08)
[2021-12-11] MEDS: hydroCHLOROthiazide 12.5 MG CAPSULE PO SCH (09:08)
[2021-12-11] MEDS: ASPIRIN 81MG ENTERIC TABLET PO SCH (09:08)
[2021-12-11] MEDS: CLOPIDOGREL 75 MG TAB PO SCH (09:08)
[2021-12-11] MEDS: FERROUS SULFATE 325MG TAB PO SCH (09:08)
[2021-12-11] MEDS: DOCUSATE SODIUM 100MG CAPSULE PO SCH (09:08)
[2021-12-11] MEDS: PANTOPRAZOLE 40MG TAB (PROTONIX) PO SCH (09:08)
[2021-12-11] MEDS: SERTRALINE 100 MG TAB PO SCH (09:08)
[2021-12-11] MEDS: POTASSIUM CHLORIDE 10MEQ SR TABLET PO SCH ×2 (09:09→11:24)
[2021-12-11] MEDS: FUROSEMIDE 40MG/4ML VIAL (J1940) IV SCH (09:10)
[2021-12-11] MEDS: LEVEMIR (INSULIN DETEMIR) 1 UNITS/0.01ML SC SCH (09:10)
[2021-12-11] MEDS: NICOTINE 7 MG/24 HR TRANSDERMAL TD SCH (09:11)
[2021-12-11] MEDS: NORCO, ANEXSIA 5/325MG TABLET (HYDROcodone/ACETAMINOPHEN) PO PRN (09:19)
[2021-12-11 12:00] VITALS: BP 138/63
[2021-12-11 13:01] LABS: BLOOD UREA NITROGEN 29 MG/DL (7-18); CALCIUM LEVEL 8.9 MG/DL (8.8-10.2); CARBON DIOXIDE LEVEL 34 MEQ/L (21-32); CHLORIDE LEVEL 101 MEQ/L (98-107); CREATININE FOR GFR 0.78 MG/DL (0.55-1.30); GLOMERULAR FILTRATION RATE > 60.0 (>39); GLUCOSE, FASTING 82 MG/DL (70-100); POTASSIUM SERUM 3.7 MEQ/L (3.5-5.1); SODIUM LEVEL 138 MEQ/L (136-145)
== END 2021-12-11 14:39 | disposition home or self-care (01) | DRG 291 ==
LOC: M ED 17:20 → M ED INP 21:15 → ENRESERV 12-09 11:27 → M PCU 12-09 13:15
PROVIDERS: ADMIT Internal Medicine; ATTEND Internal Medicine
PROC: 30233N1 Transfusion of Nonautologous Red Blood Cells into Peripheral Vein, Percutaneous Approach (ICD-10-PCS; principal; 2021-12-10)
DX: I11.0 Hypertensive heart disease with heart failure (principal); I50.33 Acute on chronic diastolic (congestive) heart failure; J44.1 Chronic obstructive pulmonary disease with (acute) exacerbation; F17.210 Nicotine dependence, cigarettes, uncomplicated; F32.A Depression, unspecified; E11.9 Type 2 diabetes mellitus without complications; E78.5 Hyperlipidemia, unspecified; K21.9 Gastro-esophageal reflux disease without esophagitis; D50.9 Iron deficiency anemia, unspecified; I25.10 Atherosclerotic heart disease of native coronary artery without angina pectoris; Z95.5 Presence of coronary angioplasty implant and graft; Z79.891 Long term (current) use of opiate analgesic; Z79.82 Long term (current) use of aspirin; Z79.899 Other long term (current) drug therapy; Z88.0 Allergy status to penicillin; Z88.1 Allergy status to other antibiotic agents; Z88.8 Allergy status to other drugs, medicaments and biological substances; Z91.048 Other nonmedicinal substance allergy status; Z20.822 Contact with and (suspected) exposure to COVID-19; E87.6 Hypokalemia; T50.1X5A Adverse effect of loop [high-ceiling] diuretics, initial encounter

== ENCOUNTER → 2021-12-27 | Outpatient (REF) | payer MEDICARE, MEDICAID ==
[~2021-12-27] MED LIST changes: +FERR1TAB8 PO; +METO1TAB87 PO; +POTA-151 PO; +PRED20TA PO; +SENN18TA PO
[2021-12-27 17:14] LABS: BASO % 0.6 % (0.0-1.0); EOS # 0.3 10^3/uL (0.0-0.5); EOS % 4.2 % (0.0-3.0); HEMATOCRIT 44.6 % (36.0-47.0); HEMOGLOBIN 12.3 g/dl (12.0-15.5); LYMPH # 1.4 10^3/uL (1.5-5.0); LYMPH % 21.8 % (24.0-44.0); MEAN CORPUSCULAR HEMOGLOBIN 19.8 pg (27.0-33.0); MEAN CORPUSCULAR HGB CONC 27.6 g/dl (32.0-36.5); MEAN CORPUSCULAR VOLUME 71.7 fl (80.0-96.0); MONO # 0.4 10^3/uL (0.0-0.8); MONO % 6.6 % (2.0-8.0); NEUTROPHILS # 4.2 10^3/uL (1.5-8.5); NEUTROPHILS % 66.5 % (36.0-66.0); PLATELET COUNT, AUTOMATED 178 10^3/uL (150-450); RED BLOOD COUNT 6.22 10^6/uL (4.00-5.40); WHITE BLOOD COUNT 6.4 10^3/uL (4.0-10.0)
[2021-12-27 17:56] LABS: ALBUMIN 3.4 GM/DL (3.2-5.2); ALT/SGPT 23 U/L (12-78); BILIRUBIN,TOTAL 0.5 MG/DL (0.2-1.0); BLOOD UREA NITROGEN 18 MG/DL (7-18); CALCIUM LEVEL 9.4 MG/DL (8.8-10.2); CARBON DIOXIDE LEVEL 29 MEQ/L (21-32); CHLORIDE LEVEL 99 MEQ/L (98-107); CREATININE FOR GFR 0.88 MG/DL (0.55-1.30); FERRITIN 43 NG/ML (8-252); GLOMERULAR FILTRATION RATE > 60.0 (>39); GLUCOSE, FASTING 286 MG/DL (70-100); NT-PRO BNP 1367 PG/ML (<125); POTASSIUM SERUM 4.4 MEQ/L (3.5-5.1); SODIUM LEVEL 133 MEQ/L (136-145)
[2021-12-27 18:15] LABS: VITAMIN B12 LEVEL 490 PG/ML (247-911)
[2021-12-30 00:07] LABS: H PYLORI SERUM QUANT IgG ABY 5.15 (0.00-0.79); TISSUE TRANSGLUTAMINASE IgA <2 U/mL (0-3)
== END ==
LOC: M PLALAB 16:39
PROVIDERS: ATTEND Family Medicine
DX: I50.32 Chronic diastolic (congestive) heart failure (principal); D69.6 Thrombocytopenia, unspecified; D50.9 Iron deficiency anemia, unspecified

== ENCOUNTER → 2021-12-29 | Outpatient (REF) | payer MEDICARE, MEDICAID ==
[~2021-12-29] MED LIST changes: +AMLO1TAB25; +GNP250TA9 PO; +HYDR-3490; +MACR100C43 PO; +OXYB5TAB10 PO; +PYRI1TAB5 PO; +TRES1INJ; +atarax
[2021-12-29 20:44] LABS: APPEARANCE, URINE MANUAL CLOUDY (CLEAR); COLOR, URINE MANUAL BROWN (YELLOW)
[2021-12-29 20:45] LABS: BILIRUBIN, URINE MANUAL NEGATIVE (NEGATIVE); BLOOD URINE MANUAL POSITIVE (NEGATIVE); GLUCOSE, URINE (UA) MANUAL 4+(1000 MG/DL) mg/dL (NEGATIVE); KETONE, URINE MANUAL NEGATIVE (NEGATIVE); LEUKOCYTE ESTERASE, URINE MAN POSITIVE (NEGATIVE); NITRITE, URINE MANUAL NEGATIVE (NEGATIVE); PROTEIN, URINE MANUAL 2+ mg/dL (NEGATIVE); UROBILINOGEN, URINE MANUAL NORMAL (NORMAL)
[2021-12-29 21:17] LABS: BACTERIA, URINE LARGE AMOUNT; HYALINE CAST, URINE NONE SEEN /lpf (0-1); RBC, URINE TNTC /hpf (0-3); SQUAMOUS EPITHELIAL CELL URINE SMALL AMOUNT /hpf (SMALL AMT); WBC, URINE TNTC /hpf (0-3)
== END ==
LOC: M SMT 16:59
PROVIDERS: ATTEND Nurse Practitioner Women's Health
DX: Z85.51 Personal history of malignant neoplasm of bladder (principal); R31.0 Gross hematuria; R82.998 Other abnormal findings in urine

== ENCOUNTER → 2022-01-05 | Outpatient (CLI) | payer MEDICARE, MEDICAID ==
[2022-01-05 18:17] LABS: HEMATOCRIT 40.7 % (36.0-47.0); HEMOGLOBIN 11.9 g/dl (12.0-15.5); MEAN CORPUSCULAR HEMOGLOBIN 21.1 pg (27.0-33.0); MEAN CORPUSCULAR HGB CONC 29.2 g/dl (32.0-36.5); PLATELET COUNT, AUTOMATED 146 10^3/uL (150-450); RED BLOOD COUNT 5.65 10^6/uL (4.00-5.40); WHITE BLOOD COUNT 6.4 10^3/uL (4.0-10.0)
[2022-01-05 18:33] LABS: INR 0.94; PROTHROMBIN TIME 12.8 SECONDS (12.5-14.5)
[2022-01-05 18:41] LABS: ALBUMIN 3.2 GM/DL (3.2-5.2); ALKALINE PHOSPHATASE 107 U/L (45-117); ALT/SGPT 18 U/L (12-78); AST/SGOT 11 U/L (7-37); BILIRUBIN,TOTAL 0.4 MG/DL (0.2-1.0); BLOOD UREA NITROGEN 14 MG/DL (7-18); CARBON DIOXIDE LEVEL 26 MEQ/L (21-32); CHLORIDE LEVEL 102 MEQ/L (98-107); CREATININE FOR GFR 0.74 MG/DL (0.55-1.30); GLOMERULAR FILTRATION RATE > 60.0 (>39); GLUCOSE, FASTING 340 MG/DL (70-100); POTASSIUM SERUM 4.1 MEQ/L (3.5-5.1); SODIUM LEVEL 136 MEQ/L (136-145); TOTAL PROTEIN 7.5 GM/DL (6.4-8.2)
== END ==
LOC: M PLALAB 15:12
PROVIDERS: ATTEND Urology
DX: D49.4 Neoplasm of unspecified behavior of bladder (principal); R31.0 Gross hematuria

== ENCOUNTER → 2022-01-05 | Outpatient (REF) | payer MEDICARE, MEDICAID ==
[~2022-01-05] MED LIST changes: -AMLO1TAB25; -GNP250TA9 PO; -HYDR-3490; -MACR100C43 PO; -OXYB5TAB10 PO; -PYRI1TAB5 PO; -TRES1INJ; -atarax
[2022-01-05 16:21] LABS: APPEARANCE, URINE MANUAL HAZY (CLEAR); COLOR, URINE MANUAL PINK (YELLOW)
[2022-01-05 16:22] LABS: BILIRUBIN, URINE MANUAL NEGATIVE (NEGATIVE); BLOOD URINE MANUAL POSITIVE (NEGATIVE); GLUCOSE, URINE (UA) MANUAL 4+(1000 MG/DL) mg/dL (NEGATIVE); KETONE, URINE MANUAL NEGATIVE (NEGATIVE); LEUKOCYTE ESTERASE, URINE MAN POSITIVE (NEGATIVE); NITRITE, URINE MANUAL NEGATIVE (NEGATIVE); PROTEIN, URINE MANUAL 2+ mg/dL (NEGATIVE); UROBILINOGEN, URINE MANUAL NORMAL (NORMAL)
[2022-01-05 16:50] LABS: AMORPHOUS SEDIMENT, URINE SMALL AMOUNT (NEGATIVE); BACTERIA, URINE MOD AMOUNT; RBC, URINE TNTC /hpf (0-3); SQUAMOUS EPITHELIAL CELL URINE SMALL AMOUNT /hpf (SMALL AMT)
== END ==
LOC: M SMT 15:09
PROVIDERS: ATTEND Urology
DX: R31.0 Gross hematuria (principal)

== ENCOUNTER → 2022-01-11 | Outpatient (CLI) | payer MEDICARE, MEDICAID ==
[~2022-01-11] MED LIST changes: +ISOVUE-370 76% 100ML VIAL As Ordered ONE
== END ==
LOC: M RAD 16:06
PROVIDERS: ATTEND Urology
DX: D49.4 Neoplasm of unspecified behavior of bladder (principal); R91.8 Other nonspecific abnormal finding of lung field; K76.89 Other specified diseases of liver; I70.0 Atherosclerosis of aorta; I77.819 Aortic ectasia, unspecified site; J44.9 Chronic obstructive pulmonary disease, unspecified

== ENCOUNTER → 2022-01-24 | Outpatient (CLI) | payer MEDICARE, MEDICAID ==
[~2022-01-24] MED LIST changes: +ACET1TAB55 PO; +AMLO1TAB25; +ASPI-161 PO; +GNP250TA9 PO; +HYDR-3490; +IPRA6SP; -ISOVUE-370 76% 100ML VIAL As Ordered ONE; +MACR100C43 PO; +MIRA3350 PO; +NICO21PAT TOP; +ONDA4TAB6 PO; +OXYB5TAB10 PO; +PYRI1TAB5 PO; +SOLI5TAB PO; +TRAM50TA2 PO; +TRES1INJ; +TRES1INJ SC; +UROCTAB2 PO; +atarax
[2022-01-24 17:41] LABS: INR 0.96
[2022-01-24 17:42] LABS: PARTIAL THROMBOPLASTIN TIME 29.8 SECONDS (24.8-34.2)
[2022-01-24 17:52] LABS: BASO % 0.5 % (0.0-1.0); EOS # 0.2 10^3/uL (0.0-0.5); EOS % 3.1 % (0.0-3.0); HEMOGLOBIN 11.9 g/dl (12.0-15.5); LYMPH # 1.8 10^3/uL (1.5-5.0); LYMPH % 24.6 % (24.0-44.0); MEAN CORPUSCULAR HEMOGLOBIN 22.3 pg (27.0-33.0); MEAN CORPUSCULAR VOLUME 76.9 fl (80.0-96.0); MONO # 0.6 10^3/uL (0.0-0.8); MONO % 8.1 % (2.0-8.0); NEUTROPHILS # 4.7 10^3/uL (1.5-8.5); NEUTROPHILS % 63.3 % (36.0-66.0); PLATELET COUNT, AUTOMATED 158 10^3/uL (150-450); RED BLOOD COUNT 5.33 10^6/uL (4.00-5.40); WHITE BLOOD COUNT 7.5 10^3/uL (4.0-10.0)
[2022-01-24 18:39] LABS: ALBUMIN 3.1 GM/DL (3.2-5.2); ALKALINE PHOSPHATASE 82 U/L (45-117); ALT/SGPT 16 U/L (12-78); AST/SGOT 17 U/L (7-37); BILIRUBIN,TOTAL 0.3 MG/DL (0.2-1.0); BLOOD UREA NITROGEN 12 MG/DL (7-18); CALCIUM LEVEL 8.6 MG/DL (8.8-10.2); CARBON DIOXIDE LEVEL 27 MEQ/L (21-32); CHLORIDE LEVEL 109 MEQ/L (98-107); CREATININE FOR GFR 0.62 MG/DL (0.55-1.30); GLOMERULAR FILTRATION RATE > 60.0 (>39); GLUCOSE, FASTING 87 MG/DL (70-100); MAGNESIUM LEVEL 2.1 MG/DL (1.8-2.4); NT-PRO BNP 7619 PG/ML (<125); POTASSIUM SERUM 3.9 MEQ/L (3.5-5.1); SODIUM LEVEL 142 MEQ/L (136-145); TOTAL PROTEIN 7.1 GM/DL (6.4-8.2)
[2022-01-24 20:51] LABS: PLATELET ESTIMATE NORMAL (NORMAL)
[2022-01-24 20:52] LABS: HYPOCHROMASIA 3+
[2022-01-24 20:53] LABS: MICROCYTOSIS 2+; POIKILOCYTOSIS 1+
== END ==
LOC: M PLALAB 15:55
PROVIDERS: ATTEND Family Medicine
DX: J44.9 Chronic obstructive pulmonary disease, unspecified (principal); I25.10 Atherosclerotic heart disease of native coronary artery without angina pectoris; E11.9 Type 2 diabetes mellitus without complications; I50.32 Chronic diastolic (congestive) heart failure; C67.9 Malignant neoplasm of bladder, unspecified; R91.8 Other nonspecific abnormal finding of lung field

== ENCOUNTER → 2022-02-06 | Outpatient (CLI) | payer MEDICARE, MEDICAID ==
[~2022-02-06] MED LIST changes: -ACET1TAB55 PO; -ASPI-161 PO; -IPRA6SP; -MIRA3350 PO; -NICO21PAT TOP; -ONDA4TAB6 PO; -SOLI5TAB PO; -TRAM50TA2 PO; -TRES1INJ SC; -UROCTAB2 PO
== END ==
LOC: M LABSMTC 11:25
PROVIDERS: ATTEND Anesthesiology
DX: Z01.812 Encounter for preprocedural laboratory examination (principal); Z20.822 Contact with and (suspected) exposure to COVID-19

== ENCOUNTER 2022-02-07 08:12 | Day surgery (SDC) | payer MEDICARE, MEDICAID ==
[~2022-02-07] VITALS: Ht 160 cm; Wt 74.9 kg
[~2022-02-07 08:12] MED LIST changes: -MACR100C43 PO; -OXYB5TAB10 PO; -PYRI1TAB5 PO
[2022-02-07] MEDS ORDERED: LR 1,000 ML IV SCH ×2 (09:05→10:35)
[2022-02-07] MEDS ORDERED: propofoL 200 MG/20 ML VIAL As Ordered ONE (09:13)
[2022-02-07] MEDS ORDERED: LIDOCAINE 2% 100MG/5ML SDV (FOR ANES.) As Ordered ONE (09:14)
[2022-02-07] MEDS ORDERED: fentaNYL 100 MCG/2 ML INJECTION As Ordered ONE (09:14)
[2022-02-07] MEDS ORDERED: dexameTHASONE 4 MG/ML 1ML VIAL (J1100 PER 1MG) As Ordered ONE (09:15)
[2022-02-07] MEDS ORDERED: ONDANSETRON 4MG 2ML VIAL As Ordered ONE (09:15)
[2022-02-07] MEDS ORDERED: ROCURONIUM BROMIDE 50 MG/5 ML VIAL As Ordered ONE (09:15)
[2022-02-07] MEDS ORDERED: CIPROFLOXACIN 400 MG in IV 1 EA IV ONE (09:35)
[2022-02-07] MEDS ORDERED: MORPHINE 10 MG/ML 1ML VIAL As Ordered ONE (09:59)
[2022-02-07] MEDS ORDERED: SUGAMMADEX SODIUM 500 MG/5 ML VIAL (BRIDION) As Ordered ONE (10:21)
[2022-02-07] MEDS ORDERED: ACETAMINOPHEN 1000MG 100ML IV BAG As Ordered ONE (10:23)
[2022-02-07] MEDS ORDERED: HYDROMORPHONE HCL 0.5 MG/ 0.5 ML SYRINGE (J1170 PER 1) IV PRN (10:35)
[2022-02-07] MEDS ORDERED: ONDANSETRON 4MG 2ML VIAL IV PRN (10:35)
[2022-02-07] MEDS ORDERED: oxyCODONE 5MG TAB PO PRN (10:35)
[2022-02-07] MEDS ORDERED: PYRI1TAB5 PO (10:45)
[2022-02-07] MEDS ORDERED: OXYB5TAB10 PO (10:45)
[2022-02-07] MEDS ORDERED: MACR100C43 PO (10:45)
[2022-02-08] MEDS ORDERED: UNRESOLVED CLARIFICATION ENTRY XX SCH (00:01)
== END 2022-02-07 12:40 | disposition home or self-care (01) ==
LOC: M SDC 08:12
PROVIDERS: ATTEND Urology
DX: C67.2 Malignant neoplasm of lateral wall of bladder (principal); F17.210 Nicotine dependence, cigarettes, uncomplicated; I10 Essential (primary) hypertension; E78.5 Hyperlipidemia, unspecified; E11.9 Type 2 diabetes mellitus without complications; I20.9 Angina pectoris, unspecified; D64.9 Anemia, unspecified; J44.9 Chronic obstructive pulmonary disease, unspecified; Z79.899 Other long term (current) drug therapy; Z79.51 Long term (current) use of inhaled steroids; Z79.4 Long term (current) use of insulin; Z88.0 Allergy status to penicillin; Z88.5 Allergy status to narcotic agent; Z88.8 Allergy status to other drugs, medicaments and biological substances
CPT/HCPCS: 52240; 88305; J0131; J0744; J1100; J2270; J2405; J3010

== ENCOUNTER 2022-03-03 18:37 | Inpatient (IN) | payer MEDICARE, MEDICAID ==
[~2022-03-03] VITALS: Ht 157.5 cm; Wt 86.8 kg
[~2022-03-03 18:37] MED LIST changes: +MACR100C43 PO; +OXYB5TAB10 PO; +PYRI1TAB5 PO
[2022-03-03] MEDS ORDERED: NS 1,000 ML IV ONE (19:10)
[2022-03-03 19:30] LABS: BASO # 0.1 10^3/uL (0.0-0.2); BASO % 0.7 % (0.0-1.0); EOS # 0.5 10^3/uL (0.0-0.5); EOS % 5.2 % (0.0-3.0); HEMATOCRIT 44.9 % (36.0-47.0); HEMOGLOBIN 13.3 g/dl (12.0-15.5); LYMPH # 1.9 10^3/uL (1.5-5.0); LYMPH % 19.7 % (24.0-44.0); MEAN CORPUSCULAR HEMOGLOBIN 25.1 pg (27.0-33.0); MEAN CORPUSCULAR HGB CONC 29.6 g/dl (32.0-36.5); MEAN CORPUSCULAR VOLUME 84.9 fl (80.0-96.0); MONO # 0.5 10^3/uL (0.0-0.8); MONO % 5.4 % (2.0-8.0); NEUTROPHILS # 6.7 10^3/uL (1.5-8.5); NEUTROPHILS % 68.7 % (36.0-66.0); PLATELET COUNT, AUTOMATED 146 10^3/uL (150-450); RED BLOOD COUNT 5.29 10^6/uL (4.00-5.40); WHITE BLOOD COUNT 9.7 10^3/uL (4.0-10.0)
[2022-03-03 19:43] LABS: INR 0.95; PROTHROMBIN TIME 12.9 SECONDS (12.5-14.5)
[2022-03-03 20:04] LABS: ALBUMIN 2.9 G/DL (3.2-5.2); ALKALINE PHOSPHATASE 76 U/L (46-116); ALT/SGPT 12 U/L (7.0-40); AST/SGOT 20 U/L (<34); BILIRUBIN,TOTAL 0.2 MG/DL (0.3-1.2); BLOOD UREA NITROGEN 17 MG/DL (9-23); CALCIUM LEVEL 8.9 MG/DL (8.3-10.6); CARBON DIOXIDE LEVEL 20 MMOL/L (20-31); CHLORIDE LEVEL 108 MMOL/L (98-107); CREATININE FOR GFR 0.94 MG/DL (0.55-1.30); GLOMERULAR FILTRATION RATE > 60.0 (>39); GLUCOSE, FASTING 267 MG/DL (74-106); POTASSIUM SERUM 4.4 MMOL/L (3.5-5.1); SODIUM LEVEL 140 MMOL/L (136-145); TOTAL PROTEIN 6.8 G/DL (5.7-8.2)
[2022-03-03 20:48] LABS: CK-MB VALUE MASS 1.6 NG/ML (<3.6)
[2022-03-03 20:50] LABS: CPK CREATINE PHOSPHOKINASE 49 U/L (34-145); MB/CK RELATIVE INDEX 3.26 (< OR =4)
[2022-03-03] MEDS ORDERED: MORPHINE 2 MG/ML 1ML VIAL IV ONE (22:00)
[2022-03-03] MEDS ORDERED: LIDOCAINE 2% 5ML JELLY UROJET TOP ONE (22:30)
[2022-03-03] MEDS ORDERED: ACETAMINOPHEN TAB 650MG DOSE (2X325MG) PO PRN (23:00)
[2022-03-03] MEDS ORDERED: HYDR-4571 PO (23:57)
[2022-03-03] MEDS ORDERED: FERR1TAB8 PO (23:57)
[2022-03-03] MEDS ORDERED: TRES1INJ SC (23:57)
[2022-03-03] MEDS ORDERED: TORS20TA2 PO (23:57)
[2022-03-03] MEDS ORDERED: UROCTAB2 PO (23:57)
[2022-03-04] VITALS (12 sets, daily range): BP systolic 66–125; BP diastolic 0–58
[2022-03-04] MEDS ORDERED: HOME MED LIST COMPLETE! XX SCH
[2022-03-04] MEDS ORDERED: HYDR-3490 PO (00:01)
[2022-03-04] MEDS ORDERED: ASPI-161 PO (00:01)
[2022-03-04] MEDS ORDERED: IPRA6SP (00:01)
[2022-03-04] MEDS ORDERED: NICO21PAT TOP (00:01)
[2022-03-04] MEDS ORDERED: CLOP75TA2 PO (00:01)
[2022-03-04] MEDS ORDERED: GLUCOSE 4GM CHEW TABLET PO PRN (00:25)
[2022-03-04] MEDS ORDERED: IPRATROPIUM 0.06% NASAL SPRAY 15 ML (ATROVENT) PRN (00:25)
[2022-03-04] MEDS ORDERED: GLUCAGON INJ 1MG VIAL SC PRN (00:25)
[2022-03-04] MEDS ORDERED: DEXTROSE 50% 50ML SYRINGE IV PRN (00:25)
[2022-03-04] MEDS: DOCUSATE SODIUM 100MG CAPSULE PO SCH ×3 (00:37→21:00)
[2022-03-04] MEDS: NORCO, ANEXSIA 5/325MG TABLET (HYDROcodone/ACETAMINOPHEN) PO SCH ×4 (00:38→21:00)
[2022-03-04] MEDS ORDERED: MORPHINE 4 MG/ML 1ML VIAL IV ONE (01:00)
[2022-03-04 06:31] LABS: HEMATOCRIT 36.3 % (36.0-47.0); MEAN CORPUSCULAR HEMOGLOBIN 25.2 pg (27.0-33.0); MEAN CORPUSCULAR HGB CONC 29.8 g/dl (32.0-36.5); MEAN CORPUSCULAR VOLUME 84.6 fl (80.0-96.0); PLATELET COUNT, AUTOMATED 104 10^3/uL (150-450); RED BLOOD COUNT 4.29 10^6/uL (4.00-5.40); WHITE BLOOD COUNT 7.3 10^3/uL (4.0-10.0)
[2022-03-04 06:34] LABS: BLOOD UREA NITROGEN 17 MG/DL (9-23); CALCIUM LEVEL 8.1 MG/DL (8.3-10.6); CARBON DIOXIDE LEVEL 25 MMOL/L (20-31); CHLORIDE LEVEL 109 MMOL/L (98-107); CREATININE FOR GFR 0.71 MG/DL (0.55-1.30); GLOMERULAR FILTRATION RATE > 60.0 (>39); GLUCOSE, FASTING 152 MG/DL (74-106); POTASSIUM SERUM 4.3 MMOL/L (3.5-5.1); SODIUM LEVEL 141 MMOL/L (136-145)
[2022-03-04 07:10] LABS: HEMOGLOBIN 10.8 g/dl (12.0-15.5)
[2022-03-04] MEDS: PANTOPRAZOLE 40MG TAB (PROTONIX) PO SCH (08:19)
[2022-03-04] MEDS: FERROUS SULFATE 325MG TAB PO SCH (08:19)
[2022-03-04] MEDS: SERTRALINE 100 MG TAB PO SCH (08:20)
[2022-03-04] MEDS: ROSUVASTATIN 10 MG TAB (CRESTOR) PO SCH (08:20)
[2022-03-04] MEDS: NICOTINE 21MG/24HR 1 EA TRANSDERMAL TOP SCH (08:21)
[2022-03-04] MEDS: INSULIN LISPRO (NovoLOG) PER UNIT SC SCH ×3 (08:21→18:55)
[2022-03-04 08:37] LABS: TOTAL IRON BINDING CAPACITY 331 UG/DL (250-425)
[2022-03-04 08:39] LABS: IRON (FE) 29 UG/DL (50-170); PERCENT SATURATION 8.8 % (13.2-45.0)
[2022-03-04 08:42] LABS: FERRITIN 21.9 NG/ML (7.3-270.7)
[2022-03-04] MEDS ORDERED: TORSEMIDE 10 MG TABLET PO SCH (09:00)
[2022-03-04] MEDS ORDERED: ASPIRIN 81MG ENTERIC TABLET PO SCH (09:00)
[2022-03-04] MEDS ORDERED: hydroCHLOROthiazide 12.5 MG CAPSULE PO SCH (09:00)
[2022-03-04] MEDS: PERCOCET 5MG/325MG TAB PO PRN (12:02)
[2022-03-04] MEDS ORDERED: NS 1,000 ML IV ONE ×2 (14:00→16:25)
[2022-03-04 16:21] LABS: HEMATOCRIT 34.1 % (36.0-47.0); HEMOGLOBIN 10.1 g/dl (12.0-15.5); MEAN CORPUSCULAR HEMOGLOBIN 25.6 pg (27.0-33.0); MEAN CORPUSCULAR HGB CONC 29.6 g/dl (32.0-36.5); MEAN CORPUSCULAR VOLUME 86.5 fl (80.0-96.0); PLATELET COUNT, AUTOMATED 120 10^3/uL (150-450); RED BLOOD COUNT 3.94 10^6/uL (4.00-5.40); WHITE BLOOD COUNT 6.9 10^3/uL (4.0-10.0)
[2022-03-04 17:39] LABS: HEMATOCRIT 35.5 % (36.0-47.0); HEMOGLOBIN 10.3 g/dl (12.0-15.5); MEAN CORPUSCULAR HEMOGLOBIN 25.1 pg (27.0-33.0); MEAN CORPUSCULAR VOLUME 86.6 fl (80.0-96.0); PLATELET COUNT, AUTOMATED 126 10^3/uL (150-450); WHITE BLOOD COUNT 6.8 10^3/uL (4.0-10.0)
[2022-03-04 17:49] LABS: INR 0.9; PROTHROMBIN TIME 12.3 SECONDS (12.5-14.5)
[2022-03-04 17:50] LABS: PARTIAL THROMBOPLASTIN TIME 25.7 SECONDS (24.8-34.2)
[2022-03-04] MEDS ORDERED: INSULIN LISPRO (NovoLOG) PER UNIT SC SCH ×3 (18:00→21:00)
[2022-03-04] MEDS: LevoFLOXacin IV 750 MG in IV 1 EA IV SCH (18:54)
[2022-03-04 19:14] LABS: CK-MB VALUE MASS 2.3 NG/ML (<3.6)
[2022-03-04 19:19] LABS: MB/CK RELATIVE INDEX 5.89 (< OR =4)
[2022-03-04] MEDS: traMADol 50 MG TAB PO PRN (21:03)
[2022-03-04] MEDS ORDERED: ONDANSETRON 4MG 2ML VIAL IV ONE (21:10)
[2022-03-05] VITALS (8 sets, daily range): BP systolic 98–149; BP diastolic 50–66
[2022-03-05 00:38] LABS: HEMATOCRIT 36.9 % (36.0-47.0); HEMOGLOBIN 11.4 g/dl (12.0-15.5); MEAN CORPUSCULAR HGB CONC 30.9 g/dl (32.0-36.5); MEAN CORPUSCULAR VOLUME 84.2 fl (80.0-96.0); PLATELET COUNT, AUTOMATED 118 10^3/uL (150-450); RED BLOOD COUNT 4.38 10^6/uL (4.00-5.40); WHITE BLOOD COUNT 7.8 10^3/uL (4.0-10.0)
[2022-03-05] MEDS: PERCOCET 5MG/325MG TAB PO PRN ×2 (01:49→19:59)
[2022-03-05] MEDS: INSULIN LISPRO (NovoLOG) PER UNIT SC SCH ×5 (05:59→23:33)
[2022-03-05] MEDS ORDERED: INSULIN LISPRO (NovoLOG) PER UNIT SC SCH (07:30)
[2022-03-05 08:11] LABS: HEMATOCRIT 35.2 % (36.0-47.0); HEMOGLOBIN 10.7 g/dl (12.0-15.5); MEAN CORPUSCULAR HEMOGLOBIN 25.5 pg (27.0-33.0); MEAN CORPUSCULAR HGB CONC 30.4 g/dl (32.0-36.5); PLATELET COUNT, AUTOMATED 106 10^3/uL (150-450); RED BLOOD COUNT 4.19 10^6/uL (4.00-5.40); WHITE BLOOD COUNT 6.5 10^3/uL (4.0-10.0)
[2022-03-05] MEDS: ROSUVASTATIN 10 MG TAB (CRESTOR) PO SCH (08:29)
[2022-03-05] MEDS: DOCUSATE SODIUM 100MG CAPSULE PO SCH ×2 (08:29→20:48)
[2022-03-05] MEDS: FERROUS SULFATE 325MG TAB PO SCH ×2 (08:29→20:48)
[2022-03-05] MEDS: PANTOPRAZOLE 40MG TAB (PROTONIX) PO SCH (08:29)
[2022-03-05] MEDS: SERTRALINE 100 MG TAB PO SCH (08:29)
[2022-03-05] MEDS: NICOTINE 21MG/24HR 1 EA TRANSDERMAL TOP SCH (08:30)
[2022-03-05] MEDS: NORCO, ANEXSIA 5/325MG TABLET (HYDROcodone/ACETAMINOPHEN) PO SCH ×3 (08:30→20:48)
[2022-03-05 08:45] LABS: ALBUMIN 2.4 G/DL (3.2-5.2); ALKALINE PHOSPHATASE 58 U/L (46-116); ALT/SGPT < 9 U/L (7.0-40); AST/SGOT 17 U/L (<34); BILIRUBIN,TOTAL 0.4 MG/DL (0.3-1.2); BLOOD UREA NITROGEN 18 MG/DL (9-23); CALCIUM LEVEL 7.8 MG/DL (8.3-10.6); CARBON DIOXIDE LEVEL 23 MMOL/L (20-31); CHLORIDE LEVEL 111 MMOL/L (98-107); CREATININE FOR GFR 0.75 MG/DL (0.55-1.30); GLOMERULAR FILTRATION RATE > 60.0 (>39); GLUCOSE, FASTING 80 MG/DL (74-106); POTASSIUM SERUM 4.3 MMOL/L (3.5-5.1); SODIUM LEVEL 143 MMOL/L (136-145); TOTAL PROTEIN 5.6 G/DL (5.7-8.2)
[2022-03-05] MEDS ORDERED: ONDANSETRON 4MG 2ML VIAL IV ONE (09:35)
[2022-03-05] MEDS: NS 1,000 ML IV SCH ×2 (09:36→17:11)
[2022-03-05] MEDS ORDERED: propofoL 200 MG/20 ML VIAL As Ordered ONE (10:59)
[2022-03-05] MEDS ORDERED: ETOMIDATE INJ 20MG/10ML VIAL As Ordered ONE (10:59)
[2022-03-05] MEDS ORDERED: ROCURONIUM BROMIDE 50MG/5ML VIAL As Ordered ONE (10:59)
[2022-03-05] MEDS ORDERED: LIDOCAINE 2% 100MG/5ML SDV (FOR ANES.) As Ordered ONE (11:00)
[2022-03-05] MEDS ORDERED: SUGAMMADEX SODIUM 500 MG/5 ML VIAL (BRIDION) As Ordered ONE (11:00)
[2022-03-05] MEDS ORDERED: ONDANSETRON 4MG 2ML VIAL As Ordered ONE (11:00)
[2022-03-05] MEDS ORDERED: MIDAZOLAM INJ 2MG/2ML VIAL (J2250 PER 1MG) As Ordered ONE (11:02)
[2022-03-05] MEDS ORDERED: fentaNYL 100 MCG/2 ML INJECTION As Ordered ONE (11:02)
[2022-03-05] MEDS ORDERED: HYDROmorphone HCL 2MG/ML 1ML VIAL As Ordered ONE (12:08)
[2022-03-05] MEDS ORDERED: ACETAMINOPHEN 1000MG 100ML IV BAG As Ordered ONE (12:30)
[2022-03-05 12:36] LABS: THYROID STIMULATING HORMONE 2.419 uIU/ML (0.55-4.78)
[2022-03-05] MEDS ORDERED: PHENYLephrine 500MCG 5ML (100MCG/ML) SYRINGE As Ordered ONE (12:51)
[2022-03-05] MEDS: oxyBUTYnin 5 MG TAB PO PRN (13:22)
[2022-03-05] MEDS: ONDANSETRON 4MG 2ML VIAL IV SCH ×4 (14:59→23:32)
[2022-03-05 16:49] LABS: HEMATOCRIT 40.1 % (36.0-47.0); HEMOGLOBIN 12.2 g/dl (12.0-15.5); MEAN CORPUSCULAR HEMOGLOBIN 25.8 pg (27.0-33.0); MEAN CORPUSCULAR HGB CONC 30.4 g/dl (32.0-36.5); MEAN CORPUSCULAR VOLUME 84.8 fl (80.0-96.0); PLATELET COUNT, AUTOMATED 113 10^3/uL (150-450); RED BLOOD COUNT 4.73 10^6/uL (4.00-5.40); WHITE BLOOD COUNT 6.2 10^3/uL (4.0-10.0)
[2022-03-05] MEDS: LevoFLOXacin IV 750 MG in IV 1 EA IV SCH (17:10)
[2022-03-06] VITALS (7 sets, daily range): BP systolic 102–130; BP diastolic 52–59
[2022-03-06 00:32] LABS: HEMATOCRIT 35.7 % (36.0-47.0); HEMOGLOBIN 10.8 g/dl (12.0-15.5); MEAN CORPUSCULAR HEMOGLOBIN 25.9 pg (27.0-33.0); MEAN CORPUSCULAR HGB CONC 30.3 g/dl (32.0-36.5); MEAN CORPUSCULAR VOLUME 85.6 fl (80.0-96.0); PLATELET COUNT, AUTOMATED 116 10^3/uL (150-450); RED BLOOD COUNT 4.17 10^6/uL (4.00-5.40); WHITE BLOOD COUNT 5.1 10^3/uL (4.0-10.0)
[2022-03-06] MEDS: oxyBUTYnin 5 MG TAB PO PRN (03:19)
[2022-03-06] MEDS: ONDANSETRON 4MG 2ML VIAL IV SCH ×2 (03:19→07:48)
[2022-03-06] MEDS: NS 1,000 ML IV SCH (03:44)
[2022-03-06] MEDS: PERCOCET 5MG/325MG TAB PO PRN ×3 (04:01→18:30)
[2022-03-06] MEDS: INSULIN LISPRO (NovoLOG) PER UNIT SC SCH ×3 (05:33→18:29)
[2022-03-06] MEDS ORDERED: LIDOCAINE 2% JELLY 6ML SYRINGE TOP ONE (07:00)
[2022-03-06] MEDS: traMADol 50 MG TAB PO PRN ×2 (07:59→23:54)
[2022-03-06] MEDS: NICOTINE 21MG/24HR 1 EA TRANSDERMAL TOP SCH (08:28)
[2022-03-06] MEDS: SERTRALINE 100 MG TAB PO SCH (08:29)
[2022-03-06] MEDS: FERROUS SULFATE 325MG TAB PO SCH ×2 (08:29→20:07)
[2022-03-06] MEDS: PANTOPRAZOLE 40MG TAB (PROTONIX) PO SCH (08:29)
[2022-03-06] MEDS: ROSUVASTATIN 10 MG TAB (CRESTOR) PO SCH (08:29)
[2022-03-06] MEDS: DOCUSATE SODIUM 100MG CAPSULE PO SCH ×2 (08:31→20:09)
[2022-03-06] MEDS: NORCO, ANEXSIA 5/325MG TABLET (HYDROcodone/ACETAMINOPHEN) PO SCH ×3 (08:31→20:07)
[2022-03-06 08:36] LABS: ALBUMIN 2.9 G/DL (3.2-5.2); ALKALINE PHOSPHATASE 66 U/L (46-116); ALT/SGPT 9 U/L (7.0-40); AST/SGOT 15 U/L (<34); BILIRUBIN,TOTAL 0.3 MG/DL (0.3-1.2); BLOOD UREA NITROGEN 21 MG/DL (9-23); CALCIUM LEVEL 8.9 MG/DL (8.3-10.6); CARBON DIOXIDE LEVEL 21 MMOL/L (20-31); CHLORIDE LEVEL 106 MMOL/L (98-107); CREATININE FOR GFR 0.76 MG/DL (0.55-1.30); GLOMERULAR FILTRATION RATE > 60.0 (>39); GLUCOSE, FASTING 218 MG/DL (74-106); POTASSIUM SERUM 4.7 MMOL/L (3.5-5.1); SODIUM LEVEL 137 MMOL/L (136-145); TOTAL PROTEIN 6.3 G/DL (5.7-8.2)
[2022-03-06] MEDS ORDERED: MORPHINE 2 MG/ML 1ML VIAL IV ONE (08:55)
[2022-03-06] MEDS: IRON SUCROSE 200 MG in NS 100 ML IV SCH (10:32)
[2022-03-06] MEDS ORDERED: ONDANSETRON 4MG 2ML VIAL IV PRN (12:15)
[2022-03-06 12:44] LABS: HEMATOCRIT 35.1 % (36.0-47.0); HEMOGLOBIN 10.8 g/dl (12.0-15.5); MEAN CORPUSCULAR HGB CONC 30.8 g/dl (32.0-36.5); MEAN CORPUSCULAR VOLUME 84.4 fl (80.0-96.0); PLATELET COUNT, AUTOMATED 124 10^3/uL (150-450); RED BLOOD COUNT 4.16 10^6/uL (4.00-5.40); WHITE BLOOD COUNT 7.1 10^3/uL (4.0-10.0)
[2022-03-06 13:08] LABS: CREATININE,RANDOM URINE 34.4 MG/DL
[2022-03-06 13:12] LABS: TOTAL PROTEIN,RANDOM URINE 135.4 MG/DL (0.0-14.0)
[2022-03-06] MEDS: SOLIFENACIN 5 MG TAB PO SCH (13:38)
[2022-03-06] MEDS: LevoFLOXacin IV 750 MG in IV 1 EA IV SCH (18:30)
[2022-03-06] MEDS ORDERED: ACET1TAB55 PO (18:50)
[2022-03-06] MEDS ORDERED: TRAM50TA2 PO (18:50)
[2022-03-06] MEDS ORDERED: FERR1TAB8 PO (18:50)
[2022-03-06] MEDS ORDERED: SOLI5TAB PO (18:50)
[2022-03-06] MEDS ORDERED: COLA100C5 PO (18:50)
[2022-03-06] MEDS ORDERED: MIRA3350 PO (18:52)
[2022-03-06] MEDS ORDERED: INSULIN LISPRO (NovoLOG) PER UNIT SC SCH (21:00)
[2022-03-07 03:55] VITALS: BP 100/58
[2022-03-07] MEDS: PERCOCET 5MG/325MG TAB PO PRN (04:07)
[2022-03-07 06:04] LABS: HEMATOCRIT 33.2 % (36.0-47.0); MEAN CORPUSCULAR HGB CONC 30.1 g/dl (32.0-36.5); MEAN CORPUSCULAR VOLUME 86.5 fl (80.0-96.0); PLATELET COUNT, AUTOMATED 119 10^3/uL (150-450); RED BLOOD COUNT 3.84 10^6/uL (4.00-5.40); WHITE BLOOD COUNT 6.4 10^3/uL (4.0-10.0)
[2022-03-07 06:35] LABS: ALBUMIN 2.4 G/DL (3.2-5.2); ALKALINE PHOSPHATASE 51 U/L (46-116); ALT/SGPT < 9 U/L (7.0-40); AST/SGOT 16 U/L (<34); BILIRUBIN,TOTAL 0.2 MG/DL (0.3-1.2); BLOOD UREA NITROGEN 18 MG/DL (9-23); CALCIUM LEVEL 8.4 MG/DL (8.3-10.6); CARBON DIOXIDE LEVEL 26 MMOL/L (20-31); CHLORIDE LEVEL 109 MMOL/L (98-107); CREATININE FOR GFR 0.82 MG/DL (0.55-1.30); GLOMERULAR FILTRATION RATE > 60.0 (>39); GLUCOSE, FASTING 115 MG/DL (74-106); POTASSIUM SERUM 4.4 MMOL/L (3.5-5.1); SODIUM LEVEL 140 MMOL/L (136-145); TOTAL PROTEIN 5.5 G/DL (5.7-8.2)
[2022-03-07] MEDS: INSULIN LISPRO (NovoLOG) PER UNIT SC SCH (07:30)
[2022-03-07 08:00] VITALS: BP 100/56
[2022-03-07] MEDS: NICOTINE 21MG/24HR 1 EA TRANSDERMAL TOP SCH (08:35)
[2022-03-07] MEDS: IRON SUCROSE 200 MG in NS 100 ML IV SCH (08:35)
[2022-03-07] MEDS: NORCO, ANEXSIA 5/325MG TABLET (HYDROcodone/ACETAMINOPHEN) PO SCH (08:36)
[2022-03-07] MEDS: DOCUSATE SODIUM 100MG CAPSULE PO SCH (08:36)
[2022-03-07] MEDS: ROSUVASTATIN 10 MG TAB (CRESTOR) PO SCH (08:36)
[2022-03-07] MEDS: PANTOPRAZOLE 40MG TAB (PROTONIX) PO SCH (08:36)
[2022-03-07] MEDS: SOLIFENACIN 5 MG TAB PO SCH (08:36)
[2022-03-07] MEDS: SERTRALINE 100 MG TAB PO SCH (08:36)
[2022-03-07] MEDS: FERROUS SULFATE 325MG TAB PO SCH (08:36)
== END 2022-03-07 11:50 | disposition home or self-care (01) | DRG 695 ==
LOC: M ED 18:37 → M ED INP 22:56 → M MSPAV 03-04 02:15 → M PCU 03-04 20:15
PROVIDERS: ADMIT Family Medicine; ATTEND Internal Medicine
PROC: 30233N1 Transfusion of Nonautologous Red Blood Cells into Peripheral Vein, Percutaneous Approach (ICD-10-PCS; principal; 2022-03-04)
PROC: 0TCB8ZZ Extirpation of Matter from Bladder, Via Natural or Artificial Opening Endoscopic (ICD-10-PCS; 2022-03-05)
DX: R31.9 Hematuria, unspecified (principal); R57.8 Other shock; I50.32 Chronic diastolic (congestive) heart failure; D50.9 Iron deficiency anemia, unspecified; E11.9 Type 2 diabetes mellitus without complications; J44.9 Chronic obstructive pulmonary disease, unspecified; K21.9 Gastro-esophageal reflux disease without esophagitis; E78.5 Hyperlipidemia, unspecified; F32.A Depression, unspecified; F17.210 Nicotine dependence, cigarettes, uncomplicated; I95.9 Hypotension, unspecified; I11.0 Hypertensive heart disease with heart failure; R91.8 Other nonspecific abnormal finding of lung field; C67.9 Malignant neoplasm of bladder, unspecified; Z87.891 Personal history of nicotine dependence; Z85.41 Personal history of malignant neoplasm of cervix uteri; Z79.82 Long term (current) use of aspirin; Z79.4 Long term (current) use of insulin; Z79.899 Other long term (current) drug therapy; Z88.0 Allergy status to penicillin; Z88.1 Allergy status to other antibiotic agents; Z88.5 Allergy status to narcotic agent; Z88.8 Allergy status to other drugs, medicaments and biological substances; Z91.048 Other nonmedicinal substance allergy status; Z20.822 Contact with and (suspected) exposure to COVID-19

== ENCOUNTER 2022-03-15 09:58 | Emergency (ER) | payer MEDICARE, MEDICAID ==
[~2022-03-15] VITALS: Ht 160 cm; Wt 70.5 kg
[~2022-03-15 09:58] MED LIST changes: +ACET1TAB55 PO; +ASPI-161 PO; +IPRA6SP; +MIRA3350 PO; +NICO21PAT TOP; +SOLI5TAB PO; +TRAM50TA2 PO; +TRES1INJ SC; +UROCTAB2 PO
[2022-03-15 11:36] LABS: BASO % 0.3 % (0.0-1.0); EOS % 0.4 % (0.0-3.0); HEMATOCRIT 48.6 % (36.0-47.0); HEMOGLOBIN 15.1 g/dl (12.0-15.5); LYMPH # 1.5 10^3/uL (1.5-5.0); LYMPH % 15.4 % (24.0-44.0); MEAN CORPUSCULAR HEMOGLOBIN 26.7 pg (27.0-33.0); MEAN CORPUSCULAR HGB CONC 31.1 g/dl (32.0-36.5); MONO # 0.7 10^3/uL (0.0-0.8); NEUTROPHILS # 7.4 10^3/uL (1.5-8.5); NEUTROPHILS % 76.6 % (36.0-66.0); PLATELET COUNT, AUTOMATED 164 10^3/uL (150-450); RED BLOOD COUNT 5.65 10^6/uL (4.00-5.40); WHITE BLOOD COUNT 9.7 10^3/uL (4.0-10.0)
[2022-03-15] MEDS ORDERED: MORPHINE 4 MG/ML 1ML VIAL IV ONE (11:45)
[2022-03-15] MEDS ORDERED: ONDANSETRON 4MG 2ML VIAL IV ONE (11:45)
[2022-03-15] MEDS ORDERED: NS 1,000 ML IV ONE ×2 (11:45→15:20)
[2022-03-15 11:52] LABS: LIPASE 23 U/L (12-53)
[2022-03-15 11:54] LABS: ALBUMIN 3.4 G/DL (3.2-5.2); ALKALINE PHOSPHATASE 84 U/L (46-116); ALT/SGPT 11 U/L (7.0-40); AST/SGOT 20 U/L (<34); BILIRUBIN,DIRECT 0.2 MG/DL (<0.4); BILIRUBIN,TOTAL 0.6 MG/DL (0.3-1.2); BLOOD UREA NITROGEN 18 MG/DL (9-23); CALCIUM LEVEL 9.2 MG/DL (8.3-10.6); CARBON DIOXIDE LEVEL 23 MMOL/L (20-31); CHLORIDE LEVEL 102 MMOL/L (98-107); CREATININE FOR GFR 0.71 MG/DL (0.55-1.30); GLOMERULAR FILTRATION RATE > 60.0 (>39); GLUCOSE, FASTING 110 MG/DL (74-106); POTASSIUM SERUM 4.3 MMOL/L (3.5-5.1); SODIUM LEVEL 136 MMOL/L (136-145); TOTAL PROTEIN 7.8 G/DL (5.7-8.2)
[2022-03-15] MEDS ORDERED: ISOVUE-370 76% 100ML VIAL As Ordered ONE (13:00)
[2022-03-15] MEDS ORDERED: PANTOPRAZOLE 40MG VIAL IV ONE (15:20)
[2022-03-15] MEDS ORDERED: ONDA4TAB6 PO (15:45)
[2022-03-15] MEDS ORDERED: NORCO, ANEXSIA 5/325MG TABLET (HYDROcodone/ACETAMINOPHEN) PO ONE (16:20)
[2022-03-15 18:00] VITALS: BP 148/62
== END 2022-03-15 18:20 | disposition home or self-care (01) ==
LOC: M ED 09:58
DX: J10.2 Influenza due to other identified influenza virus with gastrointestinal manifestations (principal); R11.2 Nausea with vomiting, unspecified; R19.7 Diarrhea, unspecified; I50.9 Heart failure, unspecified; I25.2 Old myocardial infarction; E11.9 Type 2 diabetes mellitus without complications; I10 Essential (primary) hypertension; J44.9 Chronic obstructive pulmonary disease, unspecified; K21.9 Gastro-esophageal reflux disease without esophagitis; Z85.51 Personal history of malignant neoplasm of bladder; Z95.5 Presence of coronary angioplasty implant and graft; M51.35 Other intervertebral disc degeneration, thoracolumbar region; R93.2 Abnormal findings on diagnostic imaging of liver and biliary tract; I70.0 Atherosclerosis of aorta; R93.89 Abnormal findings on diagnostic imaging of other specified body structures; K42.9 Umbilical hernia without obstruction or gangrene; M41.86 Other forms of scoliosis, lumbar region; Z79.82 Long term (current) use of aspirin; Z79.4 Long term (current) use of insulin; Z79.890 Hormone replacement therapy; Z88.0 Allergy status to penicillin; Z88.6 Allergy status to analgesic agent; Z88.8 Allergy status to other drugs, medicaments and biological substances
CPT/HCPCS: 36415; 71045; 74177; 80048; 80076; 83605; 83690; 85025; 96361; 96374; 96375; 99284; C9113; J2270; J2405; Q9967

== ENCOUNTER → 2022-03-30 | Outpatient (CLI) | payer MEDICARE, MEDICAID ==
[~2022-03-30] MED LIST changes: +ONDA4TAB6 PO
== END ==
LOC: M PLARAD 08:19
PROVIDERS: ATTEND Family Medicine
DX: R91.8 Other nonspecific abnormal finding of lung field (principal); C67.9 Malignant neoplasm of bladder, unspecified; I65.23 Occlusion and stenosis of bilateral carotid arteries; I51.7 Cardiomegaly; I70.0 Atherosclerosis of aorta; I25.10 Atherosclerotic heart disease of native coronary artery without angina pectoris; K76.89 Other specified diseases of liver; Z95.828 Presence of other vascular implants and grafts
CPT/HCPCS: 78815; A9552

== ENCOUNTER → 2022-04-19 | Outpatient (CLI) | payer MEDICARE, MEDICAID ==
[~2022-04-19] MED LIST changes: +ISOVUE-370 76% 100ML VIAL As Ordered ONE
== END ==
LOC: M RAD 14:03
PROVIDERS: ATTEND Urology
DX: C67.2 Malignant neoplasm of lateral wall of bladder (principal); J44.9 Chronic obstructive pulmonary disease, unspecified; J84.10 Pulmonary fibrosis, unspecified; R59.0 Localized enlarged lymph nodes; R91.8 Other nonspecific abnormal finding of lung field
CPT/HCPCS: 71260; Q9967

== ENCOUNTER → 2022-04-26 | Outpatient (CLI) | payer MEDICARE, MEDICAID ==
[~2022-04-26] MED LIST changes: +D-3-50003 PO; +FLUT50SP17; -FLUTISP; +INSU100I6; +INSU100I6 SC; -ISOVUE-370 76% 100ML VIAL As Ordered ONE; -LEVE1INJ5; -LEVE1INJ5 SC; +METO1TAB87; +MOXI400T11; +POTA10808 PO; +PRED50TA; +TRAZ-252 PO; +[UNRECOGNIZED DRUG - CODE] PO
[2022-04-26 17:28] LABS: HEMATOCRIT 43.1 % (36.0-47.0); HEMOGLOBIN 13.4 g/dl (12.0-15.5); MEAN CORPUSCULAR HEMOGLOBIN 28.1 pg (27.0-33.0); MEAN CORPUSCULAR HGB CONC 31.1 g/dl (32.0-36.5); MEAN CORPUSCULAR VOLUME 90.4 fl (80.0-96.0); PLATELET COUNT, AUTOMATED 127 10^3/uL (150-450); RED BLOOD COUNT 4.77 10^6/uL (4.00-5.40); WHITE BLOOD COUNT 8.1 10^3/uL (4.0-10.0)
[2022-04-26 17:55] LABS: ALBUMIN 3.2 G/DL (3.2-5.2); ALKALINE PHOSPHATASE 73 U/L (46-116); ALT/SGPT < 9 U/L (7.0-40); AST/SGOT 18 U/L (<34); BILIRUBIN,TOTAL 0.7 MG/DL (0.3-1.2); BLOOD UREA NITROGEN 14 MG/DL (9-23); CALCIUM LEVEL 8.6 MG/DL (8.3-10.6); CARBON DIOXIDE LEVEL 27 MMOL/L (20-31); CHLORIDE LEVEL 105 MMOL/L (98-107); CREATININE FOR GFR 0.73 MG/DL (0.55-1.30); GLOMERULAR FILTRATION RATE > 60.0 (>39); GLUCOSE, FASTING 95 MG/DL (74-106); POTASSIUM SERUM 4.6 MMOL/L (3.5-5.1); SODIUM LEVEL 141 MMOL/L (136-145)
[2022-04-26 17:56] LABS: INR 0.99; PROTHROMBIN TIME 13.3 SECONDS (12.5-14.5)
== END ==
LOC: M PLALAB 16:03
PROVIDERS: ATTEND Urology
DX: C67.2 Malignant neoplasm of lateral wall of bladder (principal); D50.9 Iron deficiency anemia, unspecified

== ENCOUNTER → 2022-04-26 | Outpatient (CLI) | payer MEDICARE, MEDICAID ==
[2022-04-26 17:25] LABS: BASO % 0.4 % (0.0-1.0); EOS # 0.2 10^3/uL (0.0-0.5); EOS % 2.5 % (0.0-3.0); HEMOGLOBIN 13.3 g/dl (12.0-15.5); LYMPH # 1.9 10^3/uL (1.5-5.0); LYMPH % 23.4 % (24.0-44.0); MEAN CORPUSCULAR HEMOGLOBIN 27.9 pg (27.0-33.0); MEAN CORPUSCULAR HGB CONC 30.9 g/dl (32.0-36.5); MEAN CORPUSCULAR VOLUME 90.3 fl (80.0-96.0); MONO # 0.6 10^3/uL (0.0-0.8); NEUTROPHILS # 5.2 10^3/uL (1.5-8.5); NEUTROPHILS % 65.4 % (36.0-66.0); PLATELET COUNT, AUTOMATED 127 10^3/uL (150-450); RED BLOOD COUNT 4.76 10^6/uL (4.00-5.40)
== END ==
LOC: M PLALAB 16:06
PROVIDERS: ATTEND Nurse Practitioner Family
DX: D50.9 Iron deficiency anemia, unspecified (principal)

== ENCOUNTER → 2022-04-27 | Outpatient (CLI) | payer MEDICARE, MEDICAID ==
[~2022-04-27] MED LIST changes: -D-3-50003 PO; -FLUT50SP17; +FLUTISP; -INSU100I6; -INSU100I6 SC; +LEVE1INJ5; +LEVE1INJ5 SC; -POTA10808 PO; -TRAZ-252 PO
[2022-04-27 18:17] LABS: HEMATOCRIT 44.1 % (36.0-47.0); HEMOGLOBIN 13.5 g/dl (12.0-15.5); MEAN CORPUSCULAR HGB CONC 30.6 g/dl (32.0-36.5); MEAN CORPUSCULAR VOLUME 91.3 fl (80.0-96.0); PLATELET COUNT, AUTOMATED 127 10^3/uL (150-450); RED BLOOD COUNT 4.83 10^6/uL (4.00-5.40)
[2022-04-27 18:27] LABS: TOTAL IRON BINDING CAPACITY 346 UG/DL (250-425)
[2022-04-27 18:28] LABS: ALBUMIN 3.3 G/DL (3.2-5.2); ALKALINE PHOSPHATASE 72 U/L (46-116); ALT/SGPT 10 U/L (7.0-40); AST/SGOT 16 U/L (<34); BILIRUBIN,TOTAL 0.4 MG/DL (0.3-1.2); BLOOD UREA NITROGEN 17 MG/DL (9-23); CALCIUM LEVEL 8.6 MG/DL (8.3-10.6); CARBON DIOXIDE LEVEL 28 MMOL/L (20-31); CHLORIDE LEVEL 108 MMOL/L (98-107); CHOLESTEROL LEVEL 129 MG/DL (<200); CHOLESTEROL RISK RATIO 2.81 (<5); CREATININE FOR GFR 0.66 MG/DL (0.55-1.30); GLOMERULAR FILTRATION RATE > 60.0 (>39); GLUCOSE, FASTING 114 MG/DL (74-106); HDL CHOLESTEROL 45.8 MG/DL (>40); IRON (FE) 24 UG/DL (50-170); NON-HDL-C 83 MG/DL; PERCENT SATURATION 6.9 % (13.2-45.0); POTASSIUM SERUM 4.2 MMOL/L (3.5-5.1); SODIUM LEVEL 141 MMOL/L (136-145); TOTAL PROTEIN 6.7 G/DL (5.7-8.2); TRIGLYCERIDES LEVEL 126 MG/DL (<150)
[2022-04-27 18:29] LABS: FERRITIN 32.7 NG/ML (7.3-270.7); FREE T4 0.99 NG/DL (0.89-1.76); THYROID STIMULATING HORMONE 2.745 uIU/ML (0.55-4.78)
[2022-04-27 18:33] LABS: VITAMIN B12 LEVEL 272 PG/ML (211-911)
[2022-04-27 20:02] LABS: HEMOGLOBIN A1c 6.4 % (4.0-6.0)
== END ==
LOC: M PLALAB 15:52
PROVIDERS: ATTEND Internal Medicine Hematology
DX: E11.9 Type 2 diabetes mellitus without complications (principal); K21.9 Gastro-esophageal reflux disease without esophagitis

== ENCOUNTER → 2022-05-06 | Outpatient (CLI) | payer MEDICARE, MEDICAID ==
[~2022-05-06] VITALS: Ht 157.5 cm; Wt 80.7 kg
[~2022-05-06] MED LIST changes: +ALBUTEROL SULFATE 2.5MG/0.5ML INH NEB SOLN INH PRN; +EPINEPHrine INJ 1 MG/ML 1ML AMP IM PRN; +FERRIC CARBOXYMALTOSE INJ 750 MG in NS 250 ML (>50kg) IV ONE; +NS 1,000 ML IV SCH; +diphenhydrAMINE 50MG/ML VIAL IV PRN; +methylPREDNISolone 125MG 2ML VIAL IV PRN
[2022-05-06 13:30] VITALS: BP 151/71
[2022-05-06 14:45] VITALS: BP 120/63
== END ==
LOC: M INFU 13:23
PROVIDERS: ATTEND Internal Medicine Hematology
DX: D50.9 Iron deficiency anemia, unspecified (principal); Z88.0 Allergy status to penicillin; Z88.6 Allergy status to analgesic agent; Z88.8 Allergy status to other drugs, medicaments and biological substances
CPT/HCPCS: 96365; J1439

== ENCOUNTER → 2022-05-11 | Outpatient (CLI) | payer MEDICARE, MEDICAID ==
[~2022-05-11] MED LIST changes: +ACETAMINOPHEN 325 MG TAB As Ordered ONE; +ACETAMINOPHEN TAB 650MG DOSE (2X325MG) PO PRN; -ALBUTEROL SULFATE 2.5MG/0.5ML INH NEB SOLN INH PRN; +D-3-50003 PO; -EPINEPHrine INJ 1 MG/ML 1ML AMP IM PRN; -FERRIC CARBOXYMALTOSE INJ 750 MG in NS 250 ML (>50kg) IV ONE; +HOME MED LIST COMPLETE! XX SCH; +LIDOCAINE 1% MDV 20ML VIAL As Ordered ONE; -NS 1,000 ML IV SCH; +TRAZ-252 PO; -diphenhydrAMINE 50MG/ML VIAL IV PRN; -methylPREDNISolone 125MG 2ML VIAL IV PRN
[2022-05-11 12:00] VITALS: BP 156/75
== END ==
LOC: M IRPRO 08:02
PROVIDERS: ATTEND Specialist
DX: R91.8 Other nonspecific abnormal finding of lung field (principal); C67.9 Malignant neoplasm of bladder, unspecified

== ENCOUNTER → 2022-06-08 | Outpatient (CLI) | payer MEDICARE, MEDICAID ==
[~2022-06-08] MED LIST changes: -ACETAMINOPHEN 325 MG TAB As Ordered ONE; -ACETAMINOPHEN TAB 650MG DOSE (2X325MG) PO PRN; -HOME MED LIST COMPLETE! XX SCH; +INSU100I6; +INSU100I6 SC; -LEVE1INJ5; -LEVE1INJ5 SC; -LIDOCAINE 1% MDV 20ML VIAL As Ordered ONE; +POTA10808 PO
== END ==
LOC: M LABSMTC 09:49
PROVIDERS: ATTEND Anesthesiology
DX: Z01.812 Encounter for preprocedural laboratory examination (principal); Z20.822 Contact with and (suspected) exposure to COVID-19

== ENCOUNTER → 2022-06-08 | Outpatient (CLI) | payer MEDICARE, MEDICAID ==
[2022-06-08 16:08] LABS: BASO # 0.1 10^3/uL (0.0-0.2); BASO % 0.6 % (0.0-1.0); EOS # 0.4 10^3/uL (0.0-0.5); EOS % 4.7 % (0.0-3.0); HEMATOCRIT 52.3 % (36.0-47.0); HEMOGLOBIN 16.5 g/dl (12.0-15.5); LYMPH # 1.7 10^3/uL (1.5-5.0); LYMPH % 19.6 % (24.0-44.0); MEAN CORPUSCULAR HEMOGLOBIN 29.4 pg (27.0-33.0); MEAN CORPUSCULAR HGB CONC 31.5 g/dl (32.0-36.5); MEAN CORPUSCULAR VOLUME 93.2 fl (80.0-96.0); MONO # 0.6 10^3/uL (0.0-0.8); NEUTROPHILS # 5.8 10^3/uL (1.5-8.5); NEUTROPHILS % 67.7 % (36.0-66.0); PLATELET COUNT, AUTOMATED 134 10^3/uL (150-450); RED BLOOD COUNT 5.61 10^6/uL (4.00-5.40); WHITE BLOOD COUNT 8.6 10^3/uL (4.0-10.0)
[2022-06-08 16:42] LABS: ALBUMIN 3.4 G/DL (3.2-5.2); ALKALINE PHOSPHATASE 84 U/L (46-116); ALT/SGPT 19 U/L (7.0-40); AST/SGOT 23 U/L (<34); BILIRUBIN,TOTAL 0.4 MG/DL (0.3-1.2); BLOOD UREA NITROGEN 21 MG/DL (9-23); CARBON DIOXIDE LEVEL 30 MMOL/L (20-31); CHLORIDE LEVEL 106 MMOL/L (98-107); CREATININE FOR GFR 0.76 MG/DL (0.55-1.30); GLOMERULAR FILTRATION RATE > 60.0 (>39); GLUCOSE, FASTING 64 MG/DL (74-106); POTASSIUM SERUM 4.4 MMOL/L (3.5-5.1); SODIUM LEVEL 143 MMOL/L (136-145); TOTAL PROTEIN 6.8 G/DL (5.7-8.2)
== END ==
LOC: M PLALAB 09:57
PROVIDERS: ATTEND Internal Medicine Hematology
DX: Z01.818 Encounter for other preprocedural examination (principal); I51.7 Cardiomegaly; M85.88 Other specified disorders of bone density and structure, other site; Z79.899 Other long term (current) drug therapy

== ENCOUNTER 2022-06-13 12:13 | Emergency (ER) | payer MEDICARE, MEDICAID ==
[~2022-06-13] VITALS: Ht 160 cm; Wt 80.9 kg
[2022-06-13 12:14] VITALS: BP 129/62
== END 2022-06-13 14:23 | disposition left against medical advice (07) ==
LOC: M ED 12:13
DX: Z53.21 Procedure and treatment not carried out due to patient leaving prior to being seen by health care provider (principal)

== ENCOUNTER → 2022-06-13 | Outpatient (CLI) | payer MEDICARE, MEDICAID ==
[~2022-06-13] VITALS: Ht 160 cm; Wt 80.7 kg
[2022-06-13 11:10] VITALS: BP 110/63
== END ==
LOC: M LAB 10:22 → M SDC 10:22 → EDSTATUS 13:10
PROVIDERS: ATTEND Urology
DX: C67.9 Malignant neoplasm of bladder, unspecified (principal); Z53.9 Procedure and treatment not carried out, unspecified reason

== ENCOUNTER → 2022-08-18 | Outpatient (CLI) | payer MEDICARE, MEDICAID ==
[~2022-08-18] MED LIST changes: +FLUT50SP17; -FLUTISP
== END ==
LOC: M RAD 12:47
PROVIDERS: ATTEND Internal Medicine Pulmonary Disease
DX: R91.8 Other nonspecific abnormal finding of lung field (principal); J84.9 Interstitial pulmonary disease, unspecified; I70.0 Atherosclerosis of aorta; I25.10 Atherosclerotic heart disease of native coronary artery without angina pectoris; C78.01 Secondary malignant neoplasm of right lung

== ENCOUNTER → 2022-09-02 | Outpatient (CLI) | payer MEDICARE, MEDICAID ==
[~2022-09-02] MED LIST changes: +ALB2.5NEB INH; +ANOR1AER PO; +FLUT1BLS8 INH; -K-TA10TA2 PO; +POTA-165 PO; +SENN-111 PO; -SENN18TA PO
[2022-09-02 15:34] LABS: BASO # 0.1 10^3/uL (0.0-0.2); BASO % 0.7 % (0.0-1.0); EOS # 0.4 10^3/uL (0.0-0.5); EOS % 5.1 % (0.0-3.0); HEMATOCRIT 50.1 % (36.0-47.0); HEMOGLOBIN 16.1 g/dl (12.0-15.5); LYMPH # 1.9 10^3/uL (1.5-5.0); LYMPH % 25.7 % (24.0-44.0); MEAN CORPUSCULAR HGB CONC 32.1 g/dl (32.0-36.5); MEAN CORPUSCULAR VOLUME 93.5 fl (80.0-96.0); MONO # 0.5 10^3/uL (0.0-0.8); MONO % 6.8 % (2.0-8.0); NEUTROPHILS # 4.4 10^3/uL (1.5-8.5); NEUTROPHILS % 61.4 % (36.0-66.0); PLATELET COUNT, AUTOMATED 119 10^3/uL (150-450); RED BLOOD COUNT 5.36 10^6/uL (4.00-5.40); WHITE BLOOD COUNT 7.2 10^3/uL (4.0-10.0)
[2022-09-02 15:49] LABS: INR 0.84; PROTHROMBIN TIME 11.7 SECONDS (12.5-14.5)
[2022-09-02 15:50] LABS: PARTIAL THROMBOPLASTIN TIME 27.2 SECONDS (24.8-34.2)
[2022-09-02 16:19] LABS: IRON (FE) 149 UG/DL (50-170); PERCENT SATURATION 45.4 % (13.2-45.0); TOTAL IRON BINDING CAPACITY 328 UG/DL (250-425)
[2022-09-02 16:20] LABS: ALBUMIN 3.6 G/DL (3.2-5.2); ALKALINE PHOSPHATASE 92 U/L (46-116); ALT/SGPT 21 U/L (7.0-40); AST/SGOT 15 U/L (<34); BILIRUBIN,TOTAL 0.6 MG/DL (0.3-1.2); BLOOD UREA NITROGEN 12 MG/DL (9-23); CALCIUM LEVEL 9.6 MG/DL (8.3-10.6); CARBON DIOXIDE LEVEL 28 MMOL/L (20-31); CHLORIDE LEVEL 104 MMOL/L (98-107); GLOMERULAR FILTRATION RATE > 60.0 (>39); GLUCOSE, FASTING 107 MG/DL (74-106); POTASSIUM SERUM 4.4 MMOL/L (3.5-5.1); SODIUM LEVEL 140 MMOL/L (136-145); TOTAL PROTEIN 7.2 G/DL (5.7-8.2)
[2022-09-02 16:21] LABS: VITAMIN B12 LEVEL 1071 PG/ML (211-911)
[2022-09-02 17:33] LABS: HEMOGLOBIN A1c 6.5 % (4.0-6.0)
== END ==
LOC: M PLALAB 12:11
PROVIDERS: ATTEND Internal Medicine Pulmonary Disease
DX: Z01.818 Encounter for other preprocedural examination (principal); R91.8 Other nonspecific abnormal finding of lung field; Z79.01 Long term (current) use of anticoagulants; E11.9 Type 2 diabetes mellitus without complications; I10 Essential (primary) hypertension; I25.10 Atherosclerotic heart disease of native coronary artery without angina pectoris; D50.9 Iron deficiency anemia, unspecified

== ENCOUNTER → 2022-09-02 | Outpatient (CLI) | payer MEDICARE, MEDICAID | LOC: M PLALAB 12:13 | PROVIDERS: ATTEND Internal Medicine Hematology | DX: Z01.818 Encounter for other preprocedural examination (principal); E11.9 Type 2 diabetes mellitus without complications; I10 Essential (primary) hypertension; I25.10 Atherosclerotic heart disease of native coronary artery without angina pectoris; D50.9 Iron deficiency anemia, unspecified ==

== ENCOUNTER → 2022-09-06 | Outpatient (CLI) | payer MEDICARE, MEDICAID ==
[~2022-09-06] MED LIST changes: +HOME MED LIST COMPLETE! XX SCH; +LIDOCAINE 1% MDV 20ML VIAL As Ordered ONE
[2022-09-06 11:35] VITALS: TEMP 97.9
[2022-09-06 15:00] VITALS: BP 123/58; O2SAT 94
== END ==
LOC: M IRPRO 11:25
PROVIDERS: ATTEND Internal Medicine Pulmonary Disease
DX: C34.12 Malignant neoplasm of upper lobe, left bronchus or lung (principal); R91.8 Other nonspecific abnormal finding of lung field

== ENCOUNTER → 2022-10-13 | Outpatient (CLI) | payer MEDICARE, MEDICAID ==
[~2022-10-13] MED LIST changes: -HOME MED LIST COMPLETE! XX SCH; +HYDR-3719 PO; -LIDOCAINE 1% MDV 20ML VIAL As Ordered ONE; +ZOLP10TA2 PO
== END ==
LOC: M ONCR 12:48
PROVIDERS: ATTEND General Practice
DX: C34.12 Malignant neoplasm of upper lobe, left bronchus or lung (principal); C67.8 Malignant neoplasm of overlapping sites of bladder; F17.218 Nicotine dependence, cigarettes, with other nicotine-induced disorders; Z71.6 Tobacco abuse counseling; M19.90 Unspecified osteoarthritis, unspecified site; J44.9 Chronic obstructive pulmonary disease, unspecified; Z71.2 Person consulting for explanation of examination or test findings; Z79.02 Long term (current) use of antithrombotics/antiplatelets; Z79.4 Long term (current) use of insulin; Z79.51 Long term (current) use of inhaled steroids; Z79.899 Other long term (current) drug therapy; Z85.41 Personal history of malignant neoplasm of cervix uteri; Z88.0 Allergy status to penicillin; Z88.1 Allergy status to other antibiotic agents; Z88.6 Allergy status to analgesic agent; Z88.5 Allergy status to narcotic agent; Z88.8 Allergy status to other drugs, medicaments and biological substances; Z91.048 Other nonmedicinal substance allergy status
CPT/HCPCS: 99406; G0463

== ENCOUNTER → 2022-10-21 | Outpatient (CLI) | payer MEDICARE, MEDICAID ==
[~2022-10-21] MED LIST changes: +VALI2TAB PO
== END ==
LOC: M PLARAD 13:38
PROVIDERS: ATTEND General Practice
DX: C67.8 Malignant neoplasm of overlapping sites of bladder (principal); C34.12 Malignant neoplasm of upper lobe, left bronchus or lung

== ENCOUNTER → 2022-11-02 | Outpatient (CLI) | payer MEDICARE, MEDICAID ==
[2022-11-02 17:30] LABS: HEMATOCRIT 52.5 % (36.0-47.0); MEAN CORPUSCULAR HEMOGLOBIN 29.6 pg (27.0-33.0); MEAN CORPUSCULAR HGB CONC 32.4 g/dl (32.0-36.5); MEAN CORPUSCULAR VOLUME 91.5 fl (80.0-96.0); PLATELET COUNT, AUTOMATED 114 10^3/uL (150-450); RED BLOOD COUNT 5.74 10^6/uL (4.00-5.40); WHITE BLOOD COUNT 7.9 10^3/uL (4.0-10.0)
[2022-11-02 17:54] LABS: ALBUMIN 3.4 G/DL (3.2-5.2); ALKALINE PHOSPHATASE 105 U/L (46-116); ALT/SGPT 17 U/L (7.0-40); AST/SGOT 13 U/L (<34); BILIRUBIN,TOTAL 0.5 MG/DL (0.3-1.2); BLOOD UREA NITROGEN 25 MG/DL (9-23); CARBON DIOXIDE LEVEL 27 MMOL/L (20-31); CHLORIDE LEVEL 101 MMOL/L (98-107); CHOLESTEROL LEVEL 201 MG/DL (<200); CHOLESTEROL RISK RATIO 4.48 (<5); CREATININE FOR GFR 0.83 MG/DL (0.55-1.30); FREE T4 1.09 NG/DL (0.89-1.76); GLOMERULAR FILTRATION RATE > 60.0 (>39); GLUCOSE, FASTING 314 MG/DL (74-106); HDL CHOLESTEROL 44.8 MG/DL (>40); LDL CHOLESTEROL 109.6 MG/DL (<100); NON-HDL-C 156.2 MG/DL; POTASSIUM SERUM 4.3 MMOL/L (3.5-5.1); SODIUM LEVEL 137 MMOL/L (136-145); THYROID STIMULATING HORMONE 1.426 uIU/ML (0.55-4.78); TOTAL 25(OH) VITAMIN D 56.7 NG/ML (20.0-100.0); TOTAL PROTEIN 7.3 G/DL (5.7-8.2); TRIGLYCERIDES LEVEL 233 MG/DL (<150); VITAMIN B12 LEVEL 528 PG/ML (211-911)
[2022-11-02 17:57] LABS: HEMOGLOBIN A1c 7.5 % (4.0-6.0)
[2022-11-02 18:02] LABS: CREATININE, URINE 255.3 MG/DL; MAU/CREAT RATIO 27.4 MCG/MG (0.0-30.0)
== END ==
LOC: M PLALAB 14:16
PROVIDERS: ATTEND Internal Medicine Hematology
DX: E11.9 Type 2 diabetes mellitus without complications (principal); Z79.899 Other long term (current) drug therapy

== ENCOUNTER → 2022-11-28 | Outpatient (CLI) | payer MEDICARE, MEDICAID | LOC: M PLARAD 09:31 | PROVIDERS: ATTEND General Practice | DX: C67.8 Malignant neoplasm of overlapping sites of bladder (principal); C34.12 Malignant neoplasm of upper lobe, left bronchus or lung | CPT/HCPCS: 78815; A9552 ==

== ENCOUNTER → 2022-12-07 | Outpatient (CLI) | payer MEDICARE, MEDICAID ==
[~2022-12-07] MED LIST changes: +ANOR1AER; +LIDO30CR18 TOP; +ONDA8TAB8 PO; +PROC10TA5 PO; +TRAD5TAB
== END ==
LOC: M LAB 14:55
PROVIDERS: ATTEND Specialist
DX: R00.8 Other abnormalities of heart beat (principal); R94.31 Abnormal electrocardiogram [ECG] [EKG]

== ENCOUNTER 2023-01-24 09:26 | Inpatient (IN) | payer MEDICARE, MEDICAID ==
[~2023-01-24] VITALS: Ht 160 cm; Wt 87.4 kg
[~2023-01-24 09:26] MED LIST changes: +ALPR0.5T3 PO; -ANOR1AER; +NICO21DI6 TOP; -OXYB5TAB10 PO; +OXYB5TAB11 PO
[2023-01-24 10:30] VITALS: BP 125/67; TEMP 98.2; O2SAT 97
[2023-01-24] MEDS ORDERED: GLUCOSE 4GM CHEW TABLET PO PRN (12:20)
[2023-01-24] MEDS ORDERED: DEXTROSE 50% 50ML SYRINGE IV PRN (12:20)
[2023-01-24] MEDS ORDERED: GLUCAGON INJ 1MG VIAL SC PRN (12:20)
[2023-01-24] MEDS ORDERED: MED REC IN PROGRESS XX SCH (12:25)
[2023-01-24] MEDS ORDERED: HOME MED LIST COMPLETE! XX SCH (13:20)
[2023-01-24] MEDS ORDERED: ALBUTEROL 90 MCG/ACT 8GM HFA INHALER INH PRN (15:00)
[2023-01-24] MEDS: MAG SULF 1GM/100ML (MAG RUN) 1 GM in IV 1 EA IV SCH ×3 (15:17→18:06)
[2023-01-24] MEDS: LR 1,000 ML IV SCH (15:17)
[2023-01-24] MEDS ORDERED: ONDANSETRON 4MG 2ML VIAL IV PRN (15:40)
[2023-01-24] MEDS: NICOTINE 21MG/24HR 1 EA TRANSDERMAL TOP SCH (15:49)
[2023-01-24] MEDS: PANTOPRAZOLE 40MG TAB (PROTONIX) PO SCH (15:50)
[2023-01-24] MEDS: ROSUVASTATIN 10 MG TAB (CRESTOR) PO SCH (15:50)
[2023-01-24] MEDS: CLOPIDOGREL 75 MG TAB PO SCH (15:50)
[2023-01-24] MEDS: SERTRALINE 100 MG TAB PO SCH (15:50)
[2023-01-24] MEDS: ASPIRIN 81MG ENTERIC TABLET PO SCH (15:50)
[2023-01-24 16:00] VITALS: BP 114/65; TEMP 96.5; O2SAT 93
[2023-01-24] MEDS ORDERED: EMLA CREAM 5GM TUBE (LIDOCAINE/PRILOCAINE) TOP ONE (16:00)
[2023-01-24] MEDS ORDERED: SODIUM CHLORIDE 0.9% INJ 10 ML SYR IV PRN (16:50)
[2023-01-24] MEDS: INSULIN LISPRO (NovoLOG) PER UNIT SC SCH ×2 (18:07→20:04)
[2023-01-24] MEDS ORDERED: MAGIC MOUTHWASH SUSPENSION BTL SSP PRN (18:10)
[2023-01-24] MEDS: FORMOTEROL FUMARATE 20 MCG/2 ML INHALATION SOLUTION (PERFOROMIST) INH SCH (19:57)
[2023-01-24] MEDS: IPRATROPIUM 0.5MG/ALBUTEROL 2.5MG INH SOL UD 3ML (DUONEB) NEB PRN (19:57)
[2023-01-24 20:00] VITALS: BP 131/62; TEMP 98.2; O2SAT 93
[2023-01-24] MEDS ORDERED: IPRATROPIUM 0.5MG/ALBUTEROL 2.5MG INH SOL UD 3ML (DUONEB) NEB SCH (20:00)
[2023-01-24] MEDS ORDERED: LEVEMIR (INSULIN DETEMIR) 1 UNITS/0.01ML SC SCH ×2 (21:00)
[2023-01-25 00:20] VITALS: BP 123/60; TEMP 97.6; O2SAT 95
[2023-01-25] MEDS ORDERED: EMLA CREAM 5GM TUBE (LIDOCAINE/PRILOCAINE) TOP ONE (01:25)
[2023-01-25] MEDS: IPRATROPIUM 0.5MG/ALBUTEROL 2.5MG INH SOL UD 3ML (DUONEB) NEB PRN (01:25)
[2023-01-25] MEDS: NORCO, ANEXSIA 5/325MG TABLET (HYDROcodone/ACETAMINOPHEN) PO PRN (02:54)
[2023-01-25] MEDS: ALPRAZolam 0.5 MG TAB PO PRN ×2 (02:54→21:14)
[2023-01-25 04:30] VITALS: BP 120/57; TEMP 97.6; O2SAT 90
[2023-01-25 05:42] LABS: HEMATOCRIT 30.2 % (36.0-47.0); HEMOGLOBIN 10.3 g/dl (12.0-15.5); MEAN CORPUSCULAR HEMOGLOBIN 29.6 pg (27.0-33.0); MEAN CORPUSCULAR HGB CONC 34.1 g/dl (32.0-36.5); MEAN CORPUSCULAR VOLUME 86.8 fl (80.0-96.0); RED BLOOD COUNT 3.48 10^6/uL (4.00-5.40); WHITE BLOOD COUNT 2.7 10^3/uL (4.0-10.0)
[2023-01-25 05:44] LABS: PLATELET COUNT, AUTOMATED 57 10^3/uL (150-450)
[2023-01-25 05:52] LABS: ALBUMIN 2.1 G/DL (3.2-5.2); ALKALINE PHOSPHATASE 79 U/L (46-116); ALT/SGPT 48 U/L (7.0-40); AST/SGOT 36 U/L (<34); BILIRUBIN,TOTAL 0.4 MG/DL (0.3-1.2); BLOOD UREA NITROGEN 25 MG/DL (9-23); CALCIUM LEVEL 7.6 MG/DL (8.3-10.6); CARBON DIOXIDE LEVEL 24 MMOL/L (20-31); CHLORIDE LEVEL 101 MMOL/L (98-107); CREATININE FOR GFR 0.76 MG/DL (0.55-1.30); GLOMERULAR FILTRATION RATE > 60.0 (>39); GLUCOSE, FASTING 164 MG/DL (74-106); POTASSIUM SERUM 3.6 MMOL/L (3.5-5.1); SODIUM LEVEL 135 MMOL/L (136-145); TOTAL PROTEIN 5.3 G/DL (5.7-8.2)
[2023-01-25] MEDS: INSULIN LISPRO (NovoLOG) PER UNIT SC SCH ×5 (07:30→21:00)
[2023-01-25] MEDS: TIOTROPIUM INHALER/CAPSULE (SPIRIVA) INH SCH (07:44)
[2023-01-25] MEDS: FORMOTEROL FUMARATE 20 MCG/2 ML INHALATION SOLUTION (PERFOROMIST) INH SCH ×2 (07:44→21:22)
[2023-01-25 07:59] VITALS: BP 120/60; TEMP 97.7; O2SAT 100
[2023-01-25] MEDS: LR 1,000 ML IV SCH ×2 (08:45→13:22)
[2023-01-25] MEDS: CLOPIDOGREL 75 MG TAB PO SCH (08:46)
[2023-01-25] MEDS: PANTOPRAZOLE 40MG TAB (PROTONIX) PO SCH (08:46)
[2023-01-25] MEDS: SERTRALINE 100 MG TAB PO SCH (08:46)
[2023-01-25] MEDS: ROSUVASTATIN 10 MG TAB (CRESTOR) PO SCH (08:46)
[2023-01-25] MEDS: ASPIRIN 81MG ENTERIC TABLET PO SCH (08:46)
[2023-01-25] MEDS: NICOTINE 21MG/24HR 1 EA TRANSDERMAL TOP SCH (08:47)
[2023-01-25] MEDS: MAGIC MOUTHWASH SUSPENSION BTL SSP SCH ×3 (08:54→21:15)
[2023-01-25] MEDS ORDERED: SODIUM CHLORIDE 0.9% INJ 10 ML SYR IV SCH (09:00)
[2023-01-25] MEDS ORDERED: FLUZONE HIGH DOSE(65YR UP)QUAD/PF 240MCG/0.7ML SYRINGE IM.IMMUN ONE (09:00)
[2023-01-25 15:15] VITALS: BP 116/58; TEMP 97.3; O2SAT 97
[2023-01-25 21:10] VITALS: BP 130/55; TEMP 100.2; O2SAT 95
[2023-01-25] MEDS: traZODone 50 MG TAB PO PRN (21:14)
[2023-01-25] MEDS: diphenhydrAMINE 25MG CAP PO PRN (21:14)
[2023-01-25] MEDS: LEVEMIR (INSULIN DETEMIR) 1 UNITS/0.01ML SC SCH (21:14)
[2023-01-26 04:30] VITALS: BP 96/42; TEMP 98.7; O2SAT 97
[2023-01-26 04:31] VITALS: BP 108/40
[2023-01-26 05:17] LABS: HEMATOCRIT 30.2 % (36.0-47.0); HEMOGLOBIN 10.1 g/dl (12.0-15.5); MEAN CORPUSCULAR HEMOGLOBIN 29.8 pg (27.0-33.0); MEAN CORPUSCULAR HGB CONC 33.4 g/dl (32.0-36.5); MEAN CORPUSCULAR VOLUME 89.1 fl (80.0-96.0); RED BLOOD COUNT 3.39 10^6/uL (4.00-5.40); WHITE BLOOD COUNT 3.3 10^3/uL (4.0-10.0)
[2023-01-26 05:18] LABS: PLATELET COUNT, AUTOMATED 84 10^3/uL (150-450)
[2023-01-26 05:38] LABS: BLOOD UREA NITROGEN 17 MG/DL (9-23); CALCIUM LEVEL 7.6 MG/DL (8.3-10.6); CARBON DIOXIDE LEVEL 26 MMOL/L (20-31); CHLORIDE LEVEL 103 MMOL/L (98-107); CREATININE FOR GFR 0.73 MG/DL (0.55-1.30); GLOMERULAR FILTRATION RATE > 60.0 (>39); GLUCOSE, FASTING 80 MG/DL (74-106); POTASSIUM SERUM 3.9 MMOL/L (3.5-5.1); SODIUM LEVEL 137 MMOL/L (136-145)
[2023-01-26 06:03] LABS: ATYPICAL LYMPH 7 % (0-5); LYMPHOCYTES 28 % (16-44); MONOCYTES 7 % (0-5); NEUTROPHILS 58 % (28-66); PLATELET ESTIMATE DECREASED (NORMAL)
[2023-01-26 06:04] LABS: ANISOCYTOSIS 1+
[2023-01-26] MEDS: FORMOTEROL FUMARATE 20 MCG/2 ML INHALATION SOLUTION (PERFOROMIST) INH SCH ×2 (07:10→19:09)
[2023-01-26] MEDS: TIOTROPIUM INHALER/CAPSULE (SPIRIVA) INH SCH (07:12)
[2023-01-26] MEDS: INSULIN LISPRO (NovoLOG) PER UNIT SC SCH ×4 (07:30→21:11)
[2023-01-26 08:08] VITALS: BP 147/67; TEMP 97.7; O2SAT 98
[2023-01-26] MEDS: ROSUVASTATIN 10 MG TAB (CRESTOR) PO SCH (08:54)
[2023-01-26] MEDS: SERTRALINE 100 MG TAB PO SCH (08:54)
[2023-01-26] MEDS: CLOPIDOGREL 75 MG TAB PO SCH (08:54)
[2023-01-26] MEDS: ASPIRIN 81MG ENTERIC TABLET PO SCH (08:54)
[2023-01-26] MEDS: PANTOPRAZOLE 40MG TAB (PROTONIX) PO SCH (08:54)
[2023-01-26] MEDS: NICOTINE 21MG/24HR 1 EA TRANSDERMAL TOP SCH (08:56)
[2023-01-26] MEDS: MAGIC MOUTHWASH SUSPENSION BTL SSP SCH ×3 (08:56→21:10)
[2023-01-26] MEDS: ALPRAZolam 0.5 MG TAB PO PRN ×2 (08:59→21:12)
[2023-01-26] MEDS: NORCO, ANEXSIA 5/325MG TABLET (HYDROcodone/ACETAMINOPHEN) PO PRN (09:00)
[2023-01-26] MEDS: predniSONE 20 MG TAB PO SCH (10:40)
[2023-01-26 10:49] LABS: PROCALCITONIN 0.32 ng/ml
[2023-01-26 12:00] VITALS: BP 115/55; TEMP 97.3; O2SAT 90
[2023-01-26] MEDS ORDERED: LevoFLOXacin IV 750 MG in IV 1 EA IV SCH (12:10)
[2023-01-26] MEDS: LevoFLOXacin 750 MG TABLET PO SCH (14:02)
[2023-01-26] MEDS: IPRATROPIUM 0.5MG/ALBUTEROL 2.5MG INH SOL UD 3ML (DUONEB) NEB SCH ×2 (14:20→19:09)
[2023-01-26 19:37] VITALS: BP 137/61; TEMP 97; O2SAT 99
[2023-01-26] MEDS: LEVEMIR (INSULIN DETEMIR) 1 UNITS/0.01ML SC SCH (21:11)
[2023-01-26] MEDS: diphenhydrAMINE 25MG CAP PO PRN (21:11)
[2023-01-26] MEDS: traZODone 50 MG TAB PO PRN (21:12)
[2023-01-27] MEDS: IPRATROPIUM 0.5MG/ALBUTEROL 2.5MG INH SOL UD 3ML (DUONEB) NEB SCH ×4 (02:00→20:24)
[2023-01-27 03:36] VITALS: BP 122/60; TEMP 97.2; O2SAT 98
[2023-01-27 05:40] LABS: HEMOGLOBIN 10.5 g/dl (12.0-15.5); LYMPH # 0.6 10^3/uL (1.5-5.0); LYMPH % 17.9 % (24.0-44.0); MEAN CORPUSCULAR HEMOGLOBIN 30.3 pg (27.0-33.0); MEAN CORPUSCULAR HGB CONC 33.9 g/dl (32.0-36.5); MEAN CORPUSCULAR VOLUME 89.3 fl (80.0-96.0); MONO # 0.3 10^3/uL (0.0-0.8); MONO % 8.4 % (2.0-8.0); NEUTROPHILS # 2.2 10^3/uL (1.5-8.5); NEUTROPHILS % 71.4 % (36.0-66.0); PLATELET COUNT, AUTOMATED 113 10^3/uL (150-450); RED BLOOD COUNT 3.47 10^6/uL (4.00-5.40); WHITE BLOOD COUNT 3.1 10^3/uL (4.0-10.0)
[2023-01-27 06:05] LABS: BLOOD UREA NITROGEN 21 MG/DL (9-23); CALCIUM LEVEL 7.7 MG/DL (8.3-10.6); CARBON DIOXIDE LEVEL 25 MMOL/L (20-31); CHLORIDE LEVEL 103 MMOL/L (98-107); GLOMERULAR FILTRATION RATE > 60.0 (>39); GLUCOSE, FASTING 432 MG/DL (74-106); POTASSIUM SERUM 4.5 MMOL/L (3.5-5.1); SODIUM LEVEL 138 MMOL/L (136-145)
[2023-01-27] MEDS ORDERED: INSULIN LISPRO (NovoLOG) PER UNIT SC STA (06:18)
[2023-01-27] MEDS: LevoFLOXacin 750 MG TABLET PO SCH (06:26)
[2023-01-27 07:56] VITALS: BP 133/87; TEMP 96.6; O2SAT 97
[2023-01-27] MEDS: TIOTROPIUM INHALER/CAPSULE (SPIRIVA) INH SCH (08:27)
[2023-01-27] MEDS: FORMOTEROL FUMARATE 20 MCG/2 ML INHALATION SOLUTION (PERFOROMIST) INH SCH ×2 (08:27→20:00)
[2023-01-27] MEDS ORDERED: LEVEMIR (INSULIN DETEMIR) 1 UNITS/0.01ML SC SCH ×2 (09:00→21:00)
[2023-01-27] MEDS ORDERED: AZITHROMYCIN 250MG TABLET PO SCH (09:00)
[2023-01-27] MEDS ORDERED: ISOVUE-370 76% 100ML VIAL As Ordered ONE (09:03)
[2023-01-27] MEDS: INSULIN LISPRO (NovoLOG) PER UNIT SC SCH ×4 (10:14→21:24)
[2023-01-27] MEDS: CLOPIDOGREL 75 MG TAB PO SCH (10:17)
[2023-01-27] MEDS: PANTOPRAZOLE 40MG TAB (PROTONIX) PO SCH (10:17)
[2023-01-27] MEDS: ROSUVASTATIN 10 MG TAB (CRESTOR) PO SCH (10:17)
[2023-01-27] MEDS: ASPIRIN 81MG ENTERIC TABLET PO SCH (10:17)
[2023-01-27] MEDS: predniSONE 20 MG TAB PO SCH (10:17)
[2023-01-27] MEDS: SERTRALINE 100 MG TAB PO SCH (10:18)
[2023-01-27] MEDS: MAGIC MOUTHWASH SUSPENSION BTL SSP SCH ×3 (10:19→21:23)
[2023-01-27] MEDS: ALPRAZolam 0.5 MG TAB PO PRN (10:24)
[2023-01-27] MEDS: NICOTINE 21MG/24HR 1 EA TRANSDERMAL TOP SCH (10:24)
[2023-01-27] MEDS ORDERED: FUROSEMIDE 20MG/2ML VIAL IV ONE (11:00)
[2023-01-27 15:05] VITALS: BP 148/59; TEMP 97.9; O2SAT 95
[2023-01-27 15:39] VITALS: BP 116/59; TEMP 97.1; O2SAT 100
[2023-01-27 17:05] VITALS: BP 148/59; TEMP 97.9; O2SAT 95
[2023-01-27] MEDS: traZODone 50 MG TAB PO PRN (21:27)
[2023-01-27] MEDS: NORCO, ANEXSIA 5/325MG TABLET (HYDROcodone/ACETAMINOPHEN) PO PRN (21:28)
[2023-01-27 21:49] VITALS: BP 120/65; TEMP 96.9; O2SAT 98
[2023-01-28] MEDS: IPRATROPIUM 0.5MG/ALBUTEROL 2.5MG INH SOL UD 3ML (DUONEB) NEB SCH ×2 (01:32→07:15)
[2023-01-28 05:05] VITALS: BP 154/70; TEMP 96.8; O2SAT 100
[2023-01-28] MEDS: LevoFLOXacin 750 MG TABLET PO SCH (05:56)
[2023-01-28 06:21] LABS: BASO % 0.2 % (0.0-1.0); HEMATOCRIT 31.4 % (36.0-47.0); HEMOGLOBIN 10.2 g/dl (12.0-15.5); LYMPH # 0.7 10^3/uL (1.5-5.0); LYMPH % 16.5 % (24.0-44.0); MEAN CORPUSCULAR HEMOGLOBIN 29.1 pg (27.0-33.0); MEAN CORPUSCULAR HGB CONC 32.5 g/dl (32.0-36.5); MEAN CORPUSCULAR VOLUME 89.5 fl (80.0-96.0); MONO # 0.3 10^3/uL (0.0-0.8); MONO % 8.5 % (2.0-8.0); NEUTROPHILS # 2.9 10^3/uL (1.5-8.5); NEUTROPHILS % 72.6 % (36.0-66.0); PLATELET COUNT, AUTOMATED 126 10^3/uL (150-450); RED BLOOD COUNT 3.51 10^6/uL (4.00-5.40)
[2023-01-28 06:43] LABS: BLOOD UREA NITROGEN 24 MG/DL (9-23); CALCIUM LEVEL 8.3 MG/DL (8.3-10.6); CARBON DIOXIDE LEVEL 27 MMOL/L (20-31); CHLORIDE LEVEL 102 MMOL/L (98-107); CREATININE FOR GFR 0.65 MG/DL (0.55-1.30); GLOMERULAR FILTRATION RATE > 60.0 (>39); GLUCOSE, FASTING 391 MG/DL (74-106); POTASSIUM SERUM 4.8 MMOL/L (3.5-5.1); SODIUM LEVEL 137 MMOL/L (136-145)
[2023-01-28] MEDS: FORMOTEROL FUMARATE 20 MCG/2 ML INHALATION SOLUTION (PERFOROMIST) INH SCH (07:15)
[2023-01-28] MEDS: TIOTROPIUM INHALER/CAPSULE (SPIRIVA) INH SCH (07:15)
[2023-01-28] MEDS: ROSUVASTATIN 10 MG TAB (CRESTOR) PO SCH (08:37)
[2023-01-28] MEDS: INSULIN LISPRO (NovoLOG) PER UNIT SC SCH ×2 (08:37→12:14)
[2023-01-28] MEDS: PANTOPRAZOLE 40MG TAB (PROTONIX) PO SCH (08:37)
[2023-01-28] MEDS: SERTRALINE 100 MG TAB PO SCH (08:37)
[2023-01-28] MEDS: predniSONE 20 MG TAB PO SCH (08:37)
[2023-01-28] MEDS: ASPIRIN 81MG ENTERIC TABLET PO SCH (08:37)
[2023-01-28] MEDS: CLOPIDOGREL 75 MG TAB PO SCH (08:37)
[2023-01-28] MEDS: NICOTINE 21MG/24HR 1 EA TRANSDERMAL TOP SCH (08:38)
[2023-01-28] MEDS: MAGIC MOUTHWASH SUSPENSION BTL SSP SCH (08:39)
[2023-01-28] MEDS: NORCO, ANEXSIA 5/325MG TABLET (HYDROcodone/ACETAMINOPHEN) PO PRN (08:49)
[2023-01-28] MEDS ORDERED: LEVEMIR (INSULIN DETEMIR) 1 UNITS/0.01ML SC SCH (09:00)
[2023-01-28 11:52] VITALS: BP 146/59
[2023-01-28] MEDS ORDERED: LEVO1TAB40 PO (12:20)
[2023-01-28] MEDS ORDERED: PRED20TA PO (12:20)
[2023-01-28] MEDS ORDERED: MAGICMW SSP (12:20)
[2023-01-28] MEDS ORDERED: LASI20TA3 PO (12:22)
== END 2023-01-28 13:38 | disposition home health service (06) | DRG 393 ==
LOC: M PCU 10:05 → M MSPAV 01-27 17:02
PROVIDERS: ADMIT Internal Medicine Nephrology; ATTEND Internal Medicine
DX: K52.1 Toxic gastroenteritis and colitis (principal); D61.810 Antineoplastic chemotherapy induced pancytopenia; C34.90 Malignant neoplasm of unspecified part of unspecified bronchus or lung; I50.32 Chronic diastolic (congestive) heart failure; J84.9 Interstitial pulmonary disease, unspecified; J44.1 Chronic obstructive pulmonary disease with (acute) exacerbation; R74.01 Elevation of levels of liver transaminase levels; I11.0 Hypertensive heart disease with heart failure; T45.1X5A Adverse effect of antineoplastic and immunosuppressive drugs, initial encounter; E78.5 Hyperlipidemia, unspecified; I25.10 Atherosclerotic heart disease of native coronary artery without angina pectoris; K12.1 Other forms of stomatitis; F32.A Depression, unspecified; M47.9 Spondylosis, unspecified; E83.42 Hypomagnesemia; I73.9 Peripheral vascular disease, unspecified; E11.51 Type 2 diabetes mellitus with diabetic peripheral angiopathy without gangrene; K21.9 Gastro-esophageal reflux disease without esophagitis; K76.0 Fatty (change of) liver, not elsewhere classified; D50.9 Iron deficiency anemia, unspecified; Z95.828 Presence of other vascular implants and grafts; Z99.81 Dependence on supplemental oxygen; Z95.5 Presence of coronary angioplasty implant and graft; Z85.51 Personal history of malignant neoplasm of bladder; Z87.891 Personal history of nicotine dependence; Z85.41 Personal history of malignant neoplasm of cervix uteri; Z79.82 Long term (current) use of aspirin; Z79.899 Other long term (current) drug therapy; Z88.0 Allergy status to penicillin; Z88.8 Allergy status to other drugs, medicaments and biological substances; Z91.048 Other nonmedicinal substance allergy status

== ENCOUNTER 2023-02-02 10:01 | Emergency (ER) | payer MEDICARE, MEDICAID ==
[~2023-02-02] VITALS: Ht 160 cm; Wt 80.0 kg
[~2023-02-02 10:01] MED LIST changes: +LASI20TA3 PO; +LEVO1TAB40 PO; +MAGICMW SSP
[2023-02-02] MEDS ORDERED: dexAMETHasone 20MG/5ML VIAL IV ONE (11:40)
[2023-02-02] MEDS: IPRATROPIUM 0.5MG/ALBUTEROL 2.5MG INH SOL UD 3ML (DUONEB) NEB SCH ×3 (11:49→12:04)
[2023-02-02 11:58] LABS: BASO % 0.4 % (0.0-1.0); EOS % 0.4 % (0.0-3.0); HEMATOCRIT 34.9 % (36.0-47.0); HEMOGLOBIN 11.2 g/dl (12.0-15.5); LYMPH # 1.4 10^3/uL (1.5-5.0); LYMPH % 28.2 % (24.0-44.0); MEAN CORPUSCULAR HEMOGLOBIN 29.4 pg (27.0-33.0); MEAN CORPUSCULAR HGB CONC 32.1 g/dl (32.0-36.5); MEAN CORPUSCULAR VOLUME 91.6 fl (80.0-96.0); MONO # 0.6 10^3/uL (0.0-0.8); NEUTROPHILS # 2.9 10^3/uL (1.5-8.5); NEUTROPHILS % 57.6 % (36.0-66.0); PLATELET COUNT, AUTOMATED 193 10^3/uL (150-450); RED BLOOD COUNT 3.81 10^6/uL (4.00-5.40)
[2023-02-02 12:02] LABS: BLOOD UREA NITROGEN 14 MG/DL (9-23); CALCIUM LEVEL 7.6 MG/DL (8.3-10.6); CARBON DIOXIDE LEVEL 32 MMOL/L (20-31); CHLORIDE LEVEL 106 MMOL/L (98-107); CREATININE FOR GFR 0.58 MG/DL (0.55-1.30); GLOMERULAR FILTRATION RATE > 60.0 (>39); GLUCOSE, FASTING 85 MG/DL (74-106); POTASSIUM SERUM 3.7 MMOL/L (3.5-5.1); SODIUM LEVEL 144 MMOL/L (136-145)
[2023-02-02] MEDS ORDERED: FUROSEMIDE 40MG/4ML VIAL IV ONE (13:20)
[2023-02-02 16:02] VITALS: BP 155/65; TEMP 98.4; O2SAT 91
== END 2023-02-02 16:08 | disposition home or self-care (01) ==
LOC: M ED 10:01
DX: J44.1 Chronic obstructive pulmonary disease with (acute) exacerbation (principal); I50.20 Unspecified systolic (congestive) heart failure; R09.02 Hypoxemia; Z88.0 Allergy status to penicillin; Z88.8 Allergy status to other drugs, medicaments and biological substances; Z88.6 Allergy status to analgesic agent; Z79.899 Other long term (current) drug therapy; Z79.4 Long term (current) use of insulin; Z79.82 Long term (current) use of aspirin; Z79.51 Long term (current) use of inhaled steroids; Z85.51 Personal history of malignant neoplasm of bladder; Z85.44 Personal history of malignant neoplasm of other female genital organs; F41.9 Anxiety disorder, unspecified; F32.A Depression, unspecified
CPT/HCPCS: 36415; 71045; 80048; 80053; 83735; 85025; 87486; 87581; 87633; 87798; 94640; 96374; 96375; 99284; J1100; J1940

== ENCOUNTER → 2023-02-06 | Outpatient (CLI) | payer MEDICARE, MEDICAID ==
[2023-02-06 16:11] LABS: HEMATOCRIT 36.4 % (36.0-47.0); HEMOGLOBIN 11.5 g/dl (12.0-15.5); MEAN CORPUSCULAR HEMOGLOBIN 29.5 pg (27.0-33.0); MEAN CORPUSCULAR HGB CONC 31.6 g/dl (32.0-36.5); MEAN CORPUSCULAR VOLUME 93.3 fl (80.0-96.0); PLATELET COUNT, AUTOMATED 152 10^3/uL (150-450); WHITE BLOOD COUNT 7.9 10^3/uL (4.0-10.0)
[2023-02-06 16:26] LABS: HEMOGLOBIN A1c 8.3 % (4.0-6.0)
[2023-02-06 16:38] LABS: IRON (FE) 35 UG/DL (50-170)
[2023-02-06 16:41] LABS: ALBUMIN 2.9 G/DL (3.2-5.2); ALKALINE PHOSPHATASE 74 U/L (46-116); ALT/SGPT 12 U/L (7.0-40); AST/SGOT 13 U/L (<34); BILIRUBIN,TOTAL 0.6 MG/DL (0.3-1.2); BLOOD UREA NITROGEN 11 MG/DL (9-23); CALCIUM LEVEL 8.1 MG/DL (8.3-10.6); CARBON DIOXIDE LEVEL 30 MMOL/L (20-31); CHLORIDE LEVEL 105 MMOL/L (98-107); CHOLESTEROL LEVEL 198 MG/DL (<200); CHOLESTEROL RISK RATIO 3.96 (<5); CREATININE FOR GFR 0.63 MG/DL (0.55-1.30); FREE T4 1.16 NG/DL (0.89-1.76); GLOMERULAR FILTRATION RATE > 60.0 (>39); GLUCOSE, FASTING 75 MG/DL (74-106); POTASSIUM SERUM 3.4 MMOL/L (3.5-5.1); SODIUM LEVEL 140 MMOL/L (136-145); TOTAL 25(OH) VITAMIN D 55.4 NG/ML (20.0-100.0); TOTAL PROTEIN 6.2 G/DL (5.7-8.2); TRIGLYCERIDES LEVEL 160 MG/DL (<150); VITAMIN B12 LEVEL 665 PG/ML (211-911)
== END ==
LOC: M PLALAB 14:12
PROVIDERS: ATTEND Internal Medicine Hematology
DX: E11.9 Type 2 diabetes mellitus without complications (principal); Z79.899 Other long term (current) drug therapy

== ENCOUNTER → 2023-02-21 | Outpatient (CLI) | payer MEDICARE, MEDICAID ==
[~2023-02-21] MED LIST changes: -FLUT50SP17; +FLUTISP; +PROHANCE 279.3MG/ML 15ML VIAL ONE
== END ==
LOC: M PLAIMG 12:12
PROVIDERS: ATTEND General Practice
DX: C67.8 Malignant neoplasm of overlapping sites of bladder (principal); C34.12 Malignant neoplasm of upper lobe, left bronchus or lung
CPT/HCPCS: 70553; A9576

== ENCOUNTER 2023-03-07 10:22 | Outpatient (RCR) | payer MEDICARE, MEDICAID ==
[~2023-03-07 10:22] MED LIST changes: +COMBAER6 INH; -PROHANCE 279.3MG/ML 15ML VIAL ONE
[2023-03-23] MEDS ORDERED: ALPR0.5T3 PO (11:29)
== END 2023-03-19 ==
LOC: M ONCR 10:22
PROVIDERS: ATTEND General Practice
DX: Z51.0 Encounter for antineoplastic radiation therapy (principal); C34.12 Malignant neoplasm of upper lobe, left bronchus or lung

== ENCOUNTER 2023-04-05 10:36 | Outpatient (RCR) | payer MEDICARE, MEDICAID ==
[~2023-04-05 10:36] MED LIST changes: -ASPI-161 PO; +ASPI-615 PO; -OXYB5TAB11 PO; +OXYB5TAB14 PO
[2023-04-06] MEDS ORDERED: ROLLMIS8 XX (14:35)
[2023-04-11] MEDS ORDERED: CALC500C16 PO (11:49)
[2023-04-11] MEDS ORDERED: PRED20TA PO (16:45)
[2023-04-13] MEDS ORDERED: CLOP75TA2 PO (12:17)
[2023-04-17] MEDS ORDERED: LIDO30CR18 TOP (13:00)
[2023-04-19] MEDS ORDERED: MAGICMW SSP ×2 (11:29→12:57)
== END 2023-04-19 ==
LOC: M ONCR 10:36 → M ONCM 04-18 10:00
PROVIDERS: ATTEND General Practice
DX: Z51.0 Encounter for antineoplastic radiation therapy (principal); C34.12 Malignant neoplasm of upper lobe, left bronchus or lung

== ENCOUNTER → 2023-04-10 | Outpatient (CLI) | payer MEDICARE, MEDICAID ==
[~2023-04-10] MED LIST changes: +ASPI-161 PO; -ASPI-615 PO; +CALC500C16 PO; +ISOVUE-370 76% 100ML VIAL ONE; +OXYB5TAB11 PO; -OXYB5TAB14 PO; +ROLLMIS8 XX
== END ==
LOC: M PLAIMG 13:29
PROVIDERS: ATTEND Specialist
DX: C34.90 Malignant neoplasm of unspecified part of unspecified bronchus or lung (principal); J47.9 Bronchiectasis, uncomplicated; I25.10 Atherosclerotic heart disease of native coronary artery without angina pectoris; I51.7 Cardiomegaly; K76.89 Other specified diseases of liver; J43.8 Other emphysema; J84.9 Interstitial pulmonary disease, unspecified
CPT/HCPCS: 71260; Q9967

== ENCOUNTER → 2023-07-04 | Outpatient (CLI) | payer MEDICARE, MEDICAID ==
[~2023-07-04] MED LIST changes: -ASPI-161 PO; +ASPI-615 PO; +AZIT-12 PO; +BENZ200C70 PO; +BUDE0.5S6 NEB; -ISOVUE-370 76% 100ML VIAL ONE; -OXYB5TAB11 PO; +OXYB5TAB14 PO; +PROHANCE 279.3MG/ML 15ML VIAL As Ordered ONE; +PROHANCE 279.3MG/ML 5ML VIAL As Ordered ONE; +TRAD5TAB PO
== END ==
LOC: M RAD 10:39
PROVIDERS: ATTEND General Practice
DX: C34.12 Malignant neoplasm of upper lobe, left bronchus or lung (principal)
CPT/HCPCS: 70553; A9576

== ENCOUNTER 2023-07-05 15:51 | Inpatient (IN) | payer MEDICARE, MEDICAID ==
[~2023-07-05] VITALS: Ht 160 cm; Wt 87.1 kg
[~2023-07-05 15:51] MED LIST changes: -BUDE0.5S6 NEB; -PROHANCE 279.3MG/ML 15ML VIAL As Ordered ONE; -PROHANCE 279.3MG/ML 5ML VIAL As Ordered ONE; -TRAD5TAB PO
[2023-07-05] MEDS ORDERED: SODIUM CHLORIDE 0.9% INJ 10 ML SYR IV PRN (16:30)
[2023-07-05] MEDS: IPRATROPIUM 0.5MG/ALBUTEROL 2.5MG INH SOL UD 3ML (DUONEB) NEB PRN (16:41)
[2023-07-05 17:11] LABS: BASO % 0.3 % (0.0-1.0); EOS # 0.1 10^3/uL (0.0-0.5); HEMATOCRIT 32.4 % (36.0-47.0); HEMOGLOBIN 10.4 g/dl (12.0-15.5); LYMPH # 0.8 10^3/uL (1.5-5.0); LYMPH % 12.1 % (24.0-44.0); MEAN CORPUSCULAR HEMOGLOBIN 31.7 pg (27.0-33.0); MEAN CORPUSCULAR HGB CONC 32.1 g/dl (32.0-36.5); MEAN CORPUSCULAR VOLUME 98.8 fl (80.0-96.0); MONO # 0.6 10^3/uL (0.0-0.8); MONO % 8.4 % (2.0-8.0); NEUTROPHILS # 5.3 10^3/uL (1.5-8.5); NEUTROPHILS % 76.9 % (36.0-66.0); PLATELET COUNT, AUTOMATED 107 10^3/uL (150-450); RED BLOOD COUNT 3.28 10^6/uL (4.00-5.40); WHITE BLOOD COUNT 6.9 10^3/uL (4.0-10.0)
[2023-07-05] MEDS: dexAMETHasone 20MG/5ML VIAL IV ONE (17:11)
[2023-07-05] MEDS: NS 1,000 ML IV ONE (17:11)
[2023-07-05] MEDS ORDERED: ISOVUE-370 76% 100ML VIAL As Ordered ONE (17:38)
[2023-07-05] MEDS: FUROSEMIDE 40MG/4ML VIAL IV ONE (19:38)
[2023-07-05] MEDS ORDERED: ACETAMINOPHEN TAB 650MG DOSE (2X325MG) PO PRN (20:40)
[2023-07-05] MEDS ORDERED: GLUCAGON INJ 1MG VIAL SC PRN (20:40)
[2023-07-05] MEDS ORDERED: GLUCOSE 4GM CHEW TABLET PO PRN (20:40)
[2023-07-05] MEDS ORDERED: ALBUTEROL SULFATE 2.5MG/0.5ML INH NEB SOLN NEB PRN (20:40)
[2023-07-05] MEDS ORDERED: DEXTROSE 50% 50ML SYRINGE IV PRN (20:40)
[2023-07-05] MEDS ORDERED: ONDANSETRON 4MG ORAL DISINTEGRATING TAB PO PRN (20:40)
[2023-07-05] MEDS ORDERED: TRAD5TAB PO (21:14)
[2023-07-05] MEDS ORDERED: ALPR0.5T3 PO (21:14)
[2023-07-05] MEDS ORDERED: BUDE0.5S6 NEB (21:14)
[2023-07-05] MEDS ORDERED: HOME MED LIST COMPLETE! XX SCH (21:15)
[2023-07-05] MEDS: INSULIN LISPRO (NovoLOG) PER UNIT SC SCH (21:36)
[2023-07-05 22:00] VITALS: BP 144/56; TEMP 97.7; O2SAT 90
[2023-07-05] MEDS: DOXYCYCLINE HYCLATE 100MG TABLET PO SCH (22:37)
[2023-07-05] MEDS: NORCO, ANEXSIA 5/325MG TABLET (HYDROcodone/ACETAMINOPHEN) PO PRN (22:39)
[2023-07-05] MEDS: traZODone 100 MG TAB PO PRN (23:35)
[2023-07-05 23:37] VITALS: BP_SYST 139; BP_SYST 142; BP_SYST 157; BP_DIAS 60; BP_DIAS 68
[2023-07-06] MEDS: methylPREDNISolone 125MG 2ML VIAL IV SCH ×2 (00:06→20:16)
[2023-07-06] MEDS: IPRATROPIUM 0.5MG/ALBUTEROL 2.5MG INH SOL UD 3ML (DUONEB) NEB SCH (02:00)
[2023-07-06 04:44] VITALS: BP_SYST 101; BP_SYST 112; BP_SYST 128; BP_DIAS 60; BP_DIAS 61; BP_DIAS 66; TEMP 97.5; O2SAT 89
[2023-07-06] MEDS: HEPARIN SOD (PORCINE) 5000UNITS/ML 1ML VIAL/SYRINGE SC SCH (04:59)
[2023-07-06] MEDS ORDERED: CALCIUM CARBONATE 500 MG CHEW U/D PO PRN (07:35)
[2023-07-06] MEDS ORDERED: MAGIC MOUTHWASH SUSPENSION BTL SSP PRN (07:35)
[2023-07-06] MEDS ORDERED: BUDESONIDE 0.5 MG/2 ML INHALATION SUSPENSION NEB PRN (07:35)
[2023-07-06 08:00] LABS: HEMATOCRIT 33.6 % (36.0-47.0); HEMOGLOBIN 10.7 g/dl (12.0-15.5); MEAN CORPUSCULAR HEMOGLOBIN 30.9 pg (27.0-33.0); MEAN CORPUSCULAR HGB CONC 31.8 g/dl (32.0-36.5); MEAN CORPUSCULAR VOLUME 97.1 fl (80.0-96.0); RED BLOOD COUNT 3.46 10^6/uL (4.00-5.40); WHITE BLOOD COUNT 4.5 10^3/uL (4.0-10.0)
[2023-07-06] MEDS: ADDERALL 5 MG TAB PO SCH (08:00)
[2023-07-06 08:02] LABS: PLATELET COUNT, AUTOMATED 99 10^3/uL (150-450)
[2023-07-06 08:17] LABS: BLOOD UREA NITROGEN 19 MG/DL (9-23); CARBON DIOXIDE LEVEL 30 MMOL/L (20-31); CHLORIDE LEVEL 101 MMOL/L (98-107); GLOMERULAR FILTRATION RATE > 60.0 (>39); GLUCOSE, FASTING 381 MG/DL (74-106); POTASSIUM SERUM 4.7 MMOL/L (3.5-5.1); SODIUM LEVEL 136 MMOL/L (136-145)
[2023-07-06 08:17] LABS: ALKALINE PHOSPHATASE 76 U/L (46-116); ALT/SGPT 11 U/L (7.0-40); AST/SGOT 11 U/L (<34); BILIRUBIN,TOTAL 0.4 MG/DL (0.3-1.2); BLOOD UREA NITROGEN 20 MG/DL (9-23); CALCIUM LEVEL 7.9 MG/DL (8.3-10.6); CARBON DIOXIDE LEVEL 29 MMOL/L (20-31); CHLORIDE LEVEL 101 MMOL/L (98-107); CREATININE FOR GFR 0.59 MG/DL (0.55-1.30); GLOMERULAR FILTRATION RATE > 60.0 (>39); GLUCOSE, FASTING 384 MG/DL (74-106); POTASSIUM SERUM 4.5 MMOL/L (3.5-5.1); SODIUM LEVEL 138 MMOL/L (136-145); TOTAL PROTEIN 6.5 G/DL (5.7-8.2)
[2023-07-06 08:18] LABS: CPK CREATINE PHOSPHOKINASE 55 U/L (34-145); MB/CK RELATIVE INDEX 3.63 (< OR =4)
[2023-07-06] MEDS: cefTRIAXone SOD 1 GM in D5W MINI-BAG PLUS 50 ML IV SCH (08:22)
[2023-07-06 08:25] LABS: PROCALCITONIN <0.04 ng/ml
[2023-07-06 08:33] LABS: INR 1.05; PARTIAL THROMBOPLASTIN TIME 27.1 SECONDS (24.8-34.2); PROTHROMBIN TIME 13.4 SECONDS (12.5-14.5)
[2023-07-06] MEDS: TIOTROPIUM INHALER/CAPSULE (SPIRIVA) INH SCH (08:52)
[2023-07-06] MEDS: SYMBICORT 160/4.5MCG INHALER 6GM INH SCH (08:52)
[2023-07-06 08:58] VITALS: O2SAT 91
[2023-07-06] MEDS: ENOXAPARIN 40MG/0.4ML SYRINGE (J1650 PER 10MG) SC SCH (09:00)
[2023-07-06] MEDS: SERTRALINE 100 MG TAB PO SCH (09:28)
[2023-07-06] MEDS: ONDANSETRON 4MG ORAL DISINTEGRATING TAB PO SCH (09:28)
[2023-07-06] MEDS: ASPIRIN 81MG ENTERIC TABLET PO SCH (09:28)
[2023-07-06] MEDS: PANTOPRAZOLE 40MG TAB (PROTONIX) PO SCH (09:28)
[2023-07-06] MEDS: ROSUVASTATIN 10 MG TAB (CRESTOR) PO SCH (09:29)
[2023-07-06] MEDS: FUROSEMIDE 20 MG TAB PO SCH (09:29)
[2023-07-06] MEDS: CLOPIDOGREL 75 MG TAB PO SCH (09:29)
[2023-07-06] MEDS: LEVEMIR (INSULIN DETEMIR) 1 UNITS/0.01ML SC SCH (09:30)
[2023-07-06] MEDS: INSULIN LISPRO (NovoLOG) PER UNIT SC SCH (09:30)
[2023-07-06 10:56] VITALS: BP_SYST 120; BP_SYST 122; BP_SYST 138; BP_DIAS 48; BP_DIAS 50; BP_DIAS 58
[2023-07-06] MEDS: POTASSIUM CITRATE 1080MG (10MEQ) TAB PO SCH (11:58)
[2023-07-06 14:00] VITALS: BP 102/58; TEMP 98.2; O2SAT 93
[2023-07-06] MEDS: ALPRAZolam 0.5 MG TAB PO PRN (14:39)
[2023-07-06] MEDS: HYDROcodone/APAP LIQUID 7.5-325MG 15ML UDC (LORTAB ELIXIR) PO PRN (14:39)
[2023-07-06 19:32] VITALS: O2SAT 91
[2023-07-06 20:14] VITALS: BP 108/57; TEMP 98.1; O2SAT 93
[2023-07-07 05:17] VITALS: BP 119/54; TEMP 98.1; O2SAT 99
[2023-07-07 06:28] LABS: HEMATOCRIT 32.4 % (36.0-47.0); HEMOGLOBIN 10.2 g/dl (12.0-15.5); MEAN CORPUSCULAR HEMOGLOBIN 30.7 pg (27.0-33.0); MEAN CORPUSCULAR HGB CONC 31.5 g/dl (32.0-36.5); MEAN CORPUSCULAR VOLUME 97.6 fl (80.0-96.0); PLATELET COUNT, AUTOMATED 100 10^3/uL (150-450); RED BLOOD COUNT 3.32 10^6/uL (4.00-5.40); WHITE BLOOD COUNT 10.7 10^3/uL (4.0-10.0)
[2023-07-07 06:50] LABS: ALKALINE PHOSPHATASE 73 U/L (46-116); ALT/SGPT 12 U/L (7.0-40); AST/SGOT 11 U/L (<34); BILIRUBIN,TOTAL 0.3 MG/DL (0.3-1.2); BLOOD UREA NITROGEN 25 MG/DL (9-23); CALCIUM LEVEL 8.8 MG/DL (8.3-10.6); CARBON DIOXIDE LEVEL 32 MMOL/L (20-31); CHLORIDE LEVEL 104 MMOL/L (98-107); CREATININE FOR GFR 0.66 MG/DL (0.55-1.30); GLOMERULAR FILTRATION RATE > 60.0 (>39); GLUCOSE, FASTING 256 MG/DL (74-106); POTASSIUM SERUM 4.6 MMOL/L (3.5-5.1); SODIUM LEVEL 139 MMOL/L (136-145); TOTAL PROTEIN 6.2 G/DL (5.7-8.2)
[2023-07-07] MEDS: predniSONE 20 MG TAB PO SCH (08:28)
[2023-07-07] MEDS: SODIUM CHLORIDE 0.9% INJ 10 ML SYR IV PRN (12:55)
[2023-07-07 14:00] VITALS: BP 113/60; TEMP 97; O2SAT 99
[2023-07-07 20:54] VITALS: BP 146/73; TEMP 98.8; O2SAT 93
[2023-07-08 05:33] VITALS: BP 142/68; TEMP 97.2; O2SAT 99
[2023-07-08 07:04] LABS: HEMOGLOBIN 10.2 g/dl (12.0-15.5); MEAN CORPUSCULAR HEMOGLOBIN 31.2 pg (27.0-33.0); MEAN CORPUSCULAR HGB CONC 30.9 g/dl (32.0-36.5); MEAN CORPUSCULAR VOLUME 100.9 fl (80.0-96.0); RED BLOOD COUNT 3.27 10^6/uL (4.00-5.40); WHITE BLOOD COUNT 8.5 10^3/uL (4.0-10.0)
[2023-07-08 07:13] LABS: PLATELET COUNT, AUTOMATED 92 10^3/uL (150-450)
[2023-07-08 07:26] LABS: ALBUMIN 2.9 G/DL (3.2-5.2); ALKALINE PHOSPHATASE 66 U/L (46-116); ALT/SGPT 15 U/L (7.0-40); AST/SGOT 16 U/L (<34); BILIRUBIN,TOTAL 0.3 MG/DL (0.3-1.2); BLOOD UREA NITROGEN 26 MG/DL (9-23); CALCIUM LEVEL 8.7 MG/DL (8.3-10.6); CARBON DIOXIDE LEVEL 34 MMOL/L (20-31); CHLORIDE LEVEL 102 MMOL/L (98-107); CREATININE FOR GFR 0.74 MG/DL (0.55-1.30); GLOMERULAR FILTRATION RATE > 60.0 (>39); GLUCOSE, FASTING 223 MG/DL (74-106); SODIUM LEVEL 141 MMOL/L (136-145); TOTAL PROTEIN 5.8 G/DL (5.7-8.2)
[2023-07-08] MEDS: FUROSEMIDE 20 MG TAB PO SCH (08:57)
[2023-07-08] MEDS: SODIUM CHLORIDE 0.9% INJ 10 ML SYR IV SCH (09:00)
[2023-07-08] MEDS: INSULIN LISPRO (NovoLOG) PER UNIT SC SCH (11:38)
[2023-07-08 14:05] VITALS: BP 137/58; TEMP 98.1; O2SAT 95
[2023-07-08] MEDS: FUROSEMIDE 20MG/2ML VIAL IV SCH (17:25)
[2023-07-08] MEDS: NICOTINE 21MG/24HR 1 EA TRANSDERMAL TOP PRN (17:32)
[2023-07-08 21:42] VITALS: BP 126/61; TEMP 98.1; O2SAT 97
[2023-07-08] MEDS: MAGIC MOUTHWASH SUSPENSION BTL SSP PRN (23:11)
[2023-07-09 06:00] VITALS: BP 126/60; TEMP 97.5; O2SAT 98
[2023-07-09 06:17] LABS: HEMOGLOBIN 9.8 g/dl (12.0-15.5); MEAN CORPUSCULAR HEMOGLOBIN 30.4 pg (27.0-33.0); MEAN CORPUSCULAR HGB CONC 30.6 g/dl (32.0-36.5); MEAN CORPUSCULAR VOLUME 99.4 fl (80.0-96.0); RED BLOOD COUNT 3.22 10^6/uL (4.00-5.40); WHITE BLOOD COUNT 7.3 10^3/uL (4.0-10.0)
[2023-07-09 06:18] LABS: PLATELET COUNT, AUTOMATED 94 10^3/uL (150-450)
[2023-07-09 06:44] LABS: ALBUMIN 2.8 G/DL (3.2-5.2); ALKALINE PHOSPHATASE 65 U/L (46-116); ALT/SGPT 18 U/L (7.0-40); AST/SGOT 15 U/L (<34); BILIRUBIN,TOTAL 0.3 MG/DL (0.3-1.2); BLOOD UREA NITROGEN 31 MG/DL (9-23); CALCIUM LEVEL 8.5 MG/DL (8.3-10.6); CARBON DIOXIDE LEVEL 37 MMOL/L (20-31); CHLORIDE LEVEL 101 MMOL/L (98-107); CREATININE FOR GFR 0.77 MG/DL (0.55-1.30); GLOMERULAR FILTRATION RATE > 60.0 (>39); GLUCOSE, FASTING 153 MG/DL (74-106); SODIUM LEVEL 142 MMOL/L (136-145); TOTAL PROTEIN 5.7 G/DL (5.7-8.2)
[2023-07-09] MEDS ORDERED: LEVO1TAB39 PO (07:30)
[2023-07-09] MEDS: LevoFLOXacin 750 MG TABLET PO SCH (10:14)
== END 2023-07-09 14:30 | disposition home health service (06) | DRG 190 ==
LOC: M ED 15:51 → M ED INP 20:40 → M MSPAV 21:59
PROVIDERS: ADMIT Internal Medicine; ATTEND Internal Medicine
DX: J44.1 Chronic obstructive pulmonary disease with (acute) exacerbation (principal); I50.33 Acute on chronic diastolic (congestive) heart failure; J96.11 Chronic respiratory failure with hypoxia; C34.32 Malignant neoplasm of lower lobe, left bronchus or lung; C68.0 Malignant neoplasm of urethra; J84.9 Interstitial pulmonary disease, unspecified; I25.10 Atherosclerotic heart disease of native coronary artery without angina pectoris; I27.20 Pulmonary hypertension, unspecified; K21.9 Gastro-esophageal reflux disease without esophagitis; E11.51 Type 2 diabetes mellitus with diabetic peripheral angiopathy without gangrene; E87.6 Hypokalemia; Z92.21 Personal history of antineoplastic chemotherapy; F32.A Depression, unspecified; Z88.0 Allergy status to penicillin; Z88.6 Allergy status to analgesic agent; Z88.8 Allergy status to other drugs, medicaments and biological substances; Z79.899 Other long term (current) drug therapy; Z79.82 Long term (current) use of aspirin; Z79.4 Long term (current) use of insulin; H02.403 Unspecified ptosis of bilateral eyelids; F17.200 Nicotine dependence, unspecified, uncomplicated

== ENCOUNTER → 2023-07-07 | Outpatient (CLI) | payer MEDICARE, MEDICAID ==
[~2023-07-07] MED LIST changes: +BUDE0.5S6 NEB; +ISOVUE-370 76% 100ML VIAL As Ordered ONE; +LEVO1TAB39 PO; -ROSU10TA6 PO; +ROSU10TA61 PO; +TRAD5TAB PO
== END ==
LOC: M RAD 11:30
PROVIDERS: ATTEND Nurse Practitioner
DX: C34.90 Malignant neoplasm of unspecified part of unspecified bronchus or lung (principal)

== ENCOUNTER → 2023-07-11 | Outpatient (CLI) | payer MEDICARE, MEDICAID ==
[~2023-07-11] MED LIST changes: -ISOVUE-370 76% 100ML VIAL As Ordered ONE; +ROSU10TA6 PO; -ROSU10TA61 PO
== END ==
LOC: M ONCR 10:42
PROVIDERS: ATTEND General Practice
DX: C67.8 Malignant neoplasm of overlapping sites of bladder (principal); C34.12 Malignant neoplasm of upper lobe, left bronchus or lung; F17.210 Nicotine dependence, cigarettes, uncomplicated; Z71.2 Person consulting for explanation of examination or test findings; Z79.02 Long term (current) use of antithrombotics/antiplatelets; Z79.51 Long term (current) use of inhaled steroids; Z79.620 Long term (current) use of immunosuppressive biologic; Z79.82 Long term (current) use of aspirin; Z79.899 Other long term (current) drug therapy; Z79.4 Long term (current) use of insulin; Z79.84 Long term (current) use of oral hypoglycemic drugs; Z88.0 Allergy status to penicillin; Z88.1 Allergy status to other antibiotic agents; Z88.5 Allergy status to narcotic agent; Z88.6 Allergy status to analgesic agent; Z88.8 Allergy status to other drugs, medicaments and biological substances; Z91.048 Other nonmedicinal substance allergy status; Z92.3 Personal history of irradiation

== ENCOUNTER → 2023-07-24 | Outpatient (CLI) | payer MEDICARE, MEDICAID ==
[~2023-07-24] MED LIST changes: -ROSU10TA6 PO; +ROSU10TA61 PO
[2023-07-24 17:41] LABS: BASO % 0.3 % (0.0-1.0); EOS # 0.3 10^3/uL (0.0-0.5); EOS % 3.9 % (0.0-3.0); HEMATOCRIT 33.1 % (36.0-47.0); HEMOGLOBIN 10.5 g/dl (12.0-15.5); LYMPH # 0.8 10^3/uL (1.5-5.0); LYMPH % 10.7 % (24.0-44.0); MEAN CORPUSCULAR HEMOGLOBIN 31.4 pg (27.0-33.0); MEAN CORPUSCULAR HGB CONC 31.7 g/dl (32.0-36.5); MEAN CORPUSCULAR VOLUME 99.1 fl (80.0-96.0); MONO # 0.9 10^3/uL (0.0-0.8); MONO % 11.2 % (2.0-8.0); NEUTROPHILS # 5.6 10^3/uL (1.5-8.5); NEUTROPHILS % 73.5 % (36.0-66.0); RED BLOOD COUNT 3.34 10^6/uL (4.00-5.40); WHITE BLOOD COUNT 7.6 10^3/uL (4.0-10.0)
[2023-07-24 17:46] LABS: PLATELET COUNT, AUTOMATED 85 10^3/uL (150-450)
[2023-07-24 18:01] LABS: HEMOGLOBIN A1c 6.7 % (4.0-6.0)
[2023-07-24 18:11] LABS: BLOOD UREA NITROGEN 17 MG/DL (9-23); CALCIUM LEVEL 8.7 MG/DL (8.3-10.6); CARBON DIOXIDE LEVEL 31 MMOL/L (20-31); CHLORIDE LEVEL 104 MMOL/L (98-107); CHOLESTEROL LEVEL 206 MG/DL (<200); CHOLESTEROL RISK RATIO 3.65 (<5); CREATININE FOR GFR 0.71 MG/DL (0.55-1.30); GLOMERULAR FILTRATION RATE > 60.0 (>39); GLUCOSE, FASTING 74 MG/DL (74-106); HDL CHOLESTEROL 56.4 MG/DL (>40); LDL CHOLESTEROL 125.4 MG/DL (<100); NON-HDL-C 149.6 MG/DL; POTASSIUM SERUM 4.5 MMOL/L (3.5-5.1); SODIUM LEVEL 139 MMOL/L (136-145); TRIGLYCERIDES LEVEL 121 MG/DL (<150)
[2023-07-24 18:12] LABS: THYROID STIMULATING HORMONE 1.163 uIU/ML (0.55-4.78)
== END ==
LOC: M PLALAB 16:28
PROVIDERS: ATTEND Internal Medicine Cardiovascular Disease
DX: I50.42 Chronic combined systolic (congestive) and diastolic (congestive) heart failure (principal); I48.0 Paroxysmal atrial fibrillation; E78.2 Mixed hyperlipidemia; E11.9 Type 2 diabetes mellitus without complications; Z13.29 Encounter for screening for other suspected endocrine disorder

== ENCOUNTER 2023-07-27 15:27 | Inpatient (IN) | payer MEDICARE, MEDICAID ==
[~2023-07-27] VITALS: Ht 160 cm; Wt 90.2 kg
[2023-07-27] MEDS: ONDANSETRON 4MG 2ML VIAL IV ONE (16:20)
[2023-07-27] MEDS: NS 1,000 ML IV SCH ×2 (16:21→23:50)
[2023-07-27 16:23] LABS: BASO % 0.3 % (0.0-1.0); EOS # 0.3 10^3/uL (0.0-0.5); HEMATOCRIT 34.1 % (36.0-47.0); HEMOGLOBIN 10.8 g/dl (12.0-15.5); LYMPH # 0.8 10^3/uL (1.5-5.0); LYMPH % 10.8 % (24.0-44.0); MEAN CORPUSCULAR HEMOGLOBIN 31.3 pg (27.0-33.0); MEAN CORPUSCULAR HGB CONC 31.7 g/dl (32.0-36.5); MEAN CORPUSCULAR VOLUME 98.8 fl (80.0-96.0); MONO # 0.6 10^3/uL (0.0-0.8); MONO % 8.5 % (2.0-8.0); NEUTROPHILS # 5.4 10^3/uL (1.5-8.5); NEUTROPHILS % 76.1 % (36.0-66.0); RED BLOOD COUNT 3.45 10^6/uL (4.00-5.40)
[2023-07-27 16:25] LABS: PLATELET COUNT, AUTOMATED 77 10^3/uL (150-450)
[2023-07-27 16:36] LABS: INR 1.02; PROTHROMBIN TIME 13.1 SECONDS (12.5-14.5)
[2023-07-27 16:54] LABS: CK-MB VALUE MASS 1.6 NG/ML (<3.6); LIPASE 24 U/L (12-53)
[2023-07-27 16:57] LABS: ALBUMIN 2.7 G/DL (3.2-5.2); ALKALINE PHOSPHATASE 67 U/L (46-116); ALT/SGPT 16 U/L (7.0-40); AST/SGOT 17 U/L (<34); BILIRUBIN,DIRECT 0.2 MG/DL (<0.4); BILIRUBIN,TOTAL 0.6 MG/DL (0.3-1.2); BLOOD UREA NITROGEN 12 MG/DL (9-23); CARBON DIOXIDE LEVEL 28 MMOL/L (20-31); CHLORIDE LEVEL 107 MMOL/L (98-107); CPK CREATINE PHOSPHOKINASE 47 U/L (34-145); CREATININE FOR GFR 0.61 MG/DL (0.55-1.30); GLOMERULAR FILTRATION RATE > 60.0 (>39); GLUCOSE, FASTING 112 MG/DL (74-106); MAGNESIUM LEVEL 1.7 MG/DL (1.8-2.4); POTASSIUM SERUM 3.7 MMOL/L (3.5-5.1); SODIUM LEVEL 141 MMOL/L (136-145); TOTAL PROTEIN 6.2 G/DL (5.7-8.2)
[2023-07-27] MEDS ORDERED: ISOVUE-370 76% 100ML VIAL As Ordered ONE (17:09)
[2023-07-27] MEDS: EMLA CREAM 5GM TUBE (LIDOCAINE/PRILOCAINE) TOP ONE (17:48)
[2023-07-27 18:21] LABS: CK-MB VALUE MASS 1.8 NG/ML (<3.6); MB/CK RELATIVE INDEX 4.18 (< OR =4)
[2023-07-27] MEDS: MORPHINE 2 MG/ML 1ML VIAL IV ONE (19:36)
[2023-07-27] MEDS ORDERED: ROSU40TA63 PO (20:38)
[2023-07-27] MEDS ORDERED: NITR0.4S14 SL (20:38)
[2023-07-27] MEDS ORDERED: HOME MED LIST COMPLETE! XX SCH (20:40)
[2023-07-27] MEDS ORDERED: VANCOMYCIN 125MG CAPSULE PO SCH (21:25)
[2023-07-27] MEDS ORDERED: MAGIC MOUTHWASH SUSPENSION BTL SSP PRN (22:30)
[2023-07-27] MEDS ORDERED: NICOTINE 21MG/24HR 1 EA TRANSDERMAL TOP PRN (22:30)
[2023-07-27] MEDS ORDERED: PROMETHAZINE 25 MG TAB PO PRN (23:05)
[2023-07-27] MEDS ORDERED: ONDANSETRON 4MG TAB PO PRN (23:05)
[2023-07-27] MEDS: MAG SULF 1GM/100ML (MAG RUN) 1 GM in IV 1 EA IV ONE (23:51)
[2023-07-28 00:31] VITALS: BP 120/73; TEMP 97.3; O2SAT 96
[2023-07-28] MEDS: ANEXSIA, NORCO 7.5MG/325MG TABLET(HYDROCODONE/APAP) PO PRN (00:40)
[2023-07-28] MEDS: traZODone 100 MG TAB PO PRN (00:40)
[2023-07-28] MEDS: FIDAXOMICIN 200 MG TAB (DIFICID) PO SCH (01:07)
[2023-07-28] MEDS: ALBUTEROL 90 MCG/ACT 8GM HFA INHALER INH PRN (02:22)
[2023-07-28 06:09] VITALS: BP 98/45; TEMP 97.3; O2SAT 97
[2023-07-28 08:02] LABS: HEMATOCRIT 30.3 % (36.0-47.0); HEMOGLOBIN 9.5 g/dl (12.0-15.5); MEAN CORPUSCULAR HEMOGLOBIN 31.4 pg (27.0-33.0); MEAN CORPUSCULAR HGB CONC 31.4 g/dl (32.0-36.5); RED BLOOD COUNT 3.03 10^6/uL (4.00-5.40); WHITE BLOOD COUNT 4.5 10^3/uL (4.0-10.0)
[2023-07-28 08:03] LABS: PLATELET COUNT, AUTOMATED 66 10^3/uL (150-450)
[2023-07-28] MEDS: TIOTROPIUM INHALER/CAPSULE (SPIRIVA) INH SCH (08:04)
[2023-07-28] MEDS: ADVAIR HFA 115/21MCG INHALER INH SCH (08:04)
[2023-07-28 08:08] VITALS: O2SAT 92
[2023-07-28 08:44] LABS: ALBUMIN 2.3 G/DL (3.2-5.2); ALKALINE PHOSPHATASE 56 U/L (46-116); ALT/SGPT 12 U/L (7.0-40); AST/SGOT 14 U/L (<34); BILIRUBIN,TOTAL 0.5 MG/DL (0.3-1.2); BLOOD UREA NITROGEN 9 MG/DL (9-23); CALCIUM LEVEL 7.7 MG/DL (8.3-10.6); CARBON DIOXIDE LEVEL 26 MMOL/L (20-31); CHLORIDE LEVEL 110 MMOL/L (98-107); CREATININE FOR GFR 0.64 MG/DL (0.55-1.30); GLOMERULAR FILTRATION RATE > 60.0 (>39); GLUCOSE, FASTING 129 MG/DL (74-106); POTASSIUM SERUM 3.6 MMOL/L (3.5-5.1); SODIUM LEVEL 142 MMOL/L (136-145); TOTAL PROTEIN 5.3 G/DL (5.7-8.2)
[2023-07-28] MEDS: ENOXAPARIN 40MG/0.4ML SYRINGE (J1650 PER 10MG) SC SCH (09:00)
[2023-07-28] MEDS: PANTOPRAZOLE 40MG TAB (PROTONIX) PO SCH (09:34)
[2023-07-28] MEDS: SERTRALINE 100 MG TAB PO SCH (09:35)
[2023-07-28] MEDS: CLOPIDOGREL 75 MG TAB PO SCH (09:35)
[2023-07-28] MEDS: ASPIRIN 81MG ENTERIC TABLET PO SCH (09:35)
[2023-07-28] MEDS: LEVEMIR (INSULIN DETEMIR) 1 UNITS/0.01ML SC SCH ×2 (10:38→11:38)
[2023-07-28] MEDS: LIDOCAINE 5% (LIDODERM) PATCH TD SCH (10:38)
[2023-07-28] MEDS: ALPRAZolam 0.5 MG TAB PO PRN (12:05)
[2023-07-28] MEDS: SUCRALFATE 1 GM TAB PO SCH (12:05)
[2023-07-28] MEDS ORDERED: DIFI200T PO (12:37)
[2023-07-28 14:20] VITALS: BP 111/68; TEMP 97.5; O2SAT 87
[2023-07-28] MEDS ORDERED: DEXTROSE 50% 50ML SYRINGE IV PRN (16:30)
[2023-07-28] MEDS ORDERED: GLUCOSE 4 GM CHEW PO PRN (16:30)
[2023-07-28] MEDS ORDERED: GLUCAGON INJ 1MG VIAL SC PRN (16:30)
[2023-07-28 16:48] LABS: VITAMIN B12 LEVEL 363 PG/ML (211-911)
[2023-07-28 16:52] LABS: FOLATE 20.04 NG/ML (>5.4)
[2023-07-28] MEDS ORDERED: BACITRACIN OINTMENT 30GM TUBE TOP PRN (17:35)
[2023-07-28] MEDS ORDERED: TRIPLE PASTE 2OZ OINTMENT TOP PRN (17:35)
[2023-07-28] MEDS: ROSUVASTATIN 10 MG TAB (CRESTOR) PO SCH (18:05)
[2023-07-28] MEDS: INSULIN LISPRO (NovoLOG) PER UNIT SC SCH ×2 (18:07→20:27)
[2023-07-28 20:46] VITALS: BP 133/47; TEMP 97.5; O2SAT 89
[2023-07-29 06:26] LABS: HEMATOCRIT 30.2 % (36.0-47.0); HEMOGLOBIN 9.4 g/dl (12.0-15.5); MEAN CORPUSCULAR HEMOGLOBIN 31.3 pg (27.0-33.0); MEAN CORPUSCULAR HGB CONC 31.1 g/dl (32.0-36.5); MEAN CORPUSCULAR VOLUME 100.7 fl (80.0-96.0); WHITE BLOOD COUNT 4.2 10^3/uL (4.0-10.0)
[2023-07-29 06:31] LABS: PLATELET COUNT, AUTOMATED 71 10^3/uL (150-450)
[2023-07-29 06:41] VITALS: BP 124/61; TEMP 97.5; O2SAT 91
[2023-07-29 07:00] LABS: BLOOD UREA NITROGEN 10 MG/DL (9-23); CALCIUM LEVEL 7.6 MG/DL (8.3-10.6); CARBON DIOXIDE LEVEL 26 MMOL/L (20-31); CHLORIDE LEVEL 110 MMOL/L (98-107); GLOMERULAR FILTRATION RATE > 60.0 (>39); GLUCOSE, FASTING 81 MG/DL (74-106); POTASSIUM SERUM 3.6 MMOL/L (3.5-5.1); SODIUM LEVEL 144 MMOL/L (136-145)
[2023-07-29] MEDS: BUDESONIDE 0.5 MG/2 ML INHALATION SUSPENSION NEB PRN (07:11)
[2023-07-29 07:14] VITALS: O2SAT 90
[2023-07-29] MEDS: LEVEMIR (INSULIN DETEMIR) 1 UNITS/0.01ML SC SCH (08:57)
[2023-07-29] MEDS ORDERED: DIFI200T PO (09:35)
[2023-07-29] MEDS ORDERED: SUCR1TA PO (09:55)
[2023-07-29] MEDS ORDERED: LIDO5TD TD (09:55)
== END 2023-07-29 12:15 | disposition home or self-care (01) | DRG 394 ==
LOC: EDBD 15:27 → M ED 15:27 → M ED INP 22:58 → M MS5PR 07-28 00:20
PROVIDERS: ADMIT Family Medicine; ATTEND Internal Medicine
DX: K52.1 Toxic gastroenteritis and colitis (principal); I50.32 Chronic diastolic (congestive) heart failure; C34.12 Malignant neoplasm of upper lobe, left bronchus or lung; A04.72 Enterocolitis due to Clostridium difficile, not specified as recurrent; J44.9 Chronic obstructive pulmonary disease, unspecified; E78.5 Hyperlipidemia, unspecified; I25.10 Atherosclerotic heart disease of native coronary artery without angina pectoris; E83.42 Hypomagnesemia; F41.9 Anxiety disorder, unspecified; I73.9 Peripheral vascular disease, unspecified; F17.210 Nicotine dependence, cigarettes, uncomplicated; G47.00 Insomnia, unspecified; D50.9 Iron deficiency anemia, unspecified; K21.9 Gastro-esophageal reflux disease without esophagitis; E11.51 Type 2 diabetes mellitus with diabetic peripheral angiopathy without gangrene; K76.0 Fatty (change of) liver, not elsewhere classified; M19.90 Unspecified osteoarthritis, unspecified site; I11.0 Hypertensive heart disease with heart failure; Z85.51 Personal history of malignant neoplasm of bladder; Z85.41 Personal history of malignant neoplasm of cervix uteri; Z92.3 Personal history of irradiation; Z92.21 Personal history of antineoplastic chemotherapy; Z95.5 Presence of coronary angioplasty implant and graft; Z99.81 Dependence on supplemental oxygen; Z95.828 Presence of other vascular implants and grafts; Z79.82 Long term (current) use of aspirin; Z79.4 Long term (current) use of insulin; Z79.899 Other long term (current) drug therapy; Z88.0 Allergy status to penicillin; Z88.1 Allergy status to other antibiotic agents; Z88.5 Allergy status to narcotic agent; Z88.8 Allergy status to other drugs, medicaments and biological substances; Z91.048 Other nonmedicinal substance allergy status

== ENCOUNTER 2023-08-21 10:46 | Inpatient (IN) | payer MEDICARE, MEDICAID ==
[~2023-08-21] VITALS: Ht 160 cm; Wt 89.5 kg
[~2023-08-21 10:46] MED LIST changes: +DIFI200T PO; +LIDO5TD TD; +NITR0.4S14 SL; +ONDA-282 PO; +ONDA-284 PO; -ONDA4TAB6 PO; -ONDA8TAB8 PO; +ROSU40TA63 PO; +SUCR1TA PO
[2023-08-21 11:42] LABS: HEMOGLOBIN 10.8 g/dl (12.0-15.5); LYMPH # 0.4 10^3/uL (1.5-5.0); LYMPH % 6.5 % (24.0-44.0); MEAN CORPUSCULAR HEMOGLOBIN 30.8 pg (27.0-33.0); MEAN CORPUSCULAR HGB CONC 31.8 g/dl (32.0-36.5); MEAN CORPUSCULAR VOLUME 96.9 fl (80.0-96.0); MONO # 0.3 10^3/uL (0.0-0.8); MONO % 5.4 % (2.0-8.0); NEUTROPHILS # 5.4 10^3/uL (1.5-8.5); NEUTROPHILS % 87.6 % (36.0-66.0); RED BLOOD COUNT 3.51 10^6/uL (4.00-5.40); WHITE BLOOD COUNT 6.1 10^3/uL (4.0-10.0)
[2023-08-21 11:44] LABS: PLATELET COUNT, AUTOMATED 95 10^3/uL (150-450)
[2023-08-21 11:50] LABS: ABG BASE EXCESS 3.2 (-2.0-2.0); ABG HCO3 26.7 MMOL/L (22.0-26.0); ABG PARTIAL PRESSURE CO2 36.7 mmHg (35.0-45.0); ABG STANDARD HCO3 27.1 MMOL/L. (22.0-26.0); ABG TOTAL CO2 27.8 MMOL/L (23.0-31.0); ABG pH (ARTERIAL) 7.479 UNITS (7.350-7.450)
[2023-08-21 11:59] LABS: ABG PARTIAL PRESSURE O2 49.3 mmHg (75.0-100.0)
[2023-08-21 12:09] LABS: INR 1.05; PROTHROMBIN TIME 13.4 SECONDS (12.5-14.5)
[2023-08-21 12:13] LABS: CPK CREATINE PHOSPHOKINASE 29 U/L (34-145)
[2023-08-21 12:27] LABS: ALKALINE PHOSPHATASE 58 U/L (46-116); ALT/SGPT 15 U/L (7.0-40); AST/SGOT < 8 U/L (<34); BILIRUBIN,DIRECT 0.1 MG/DL (<0.4); BILIRUBIN,TOTAL 0.4 MG/DL (0.3-1.2); BLOOD UREA NITROGEN 29 MG/DL (9-23); CALCIUM LEVEL 9.2 MG/DL (8.3-10.6); CARBON DIOXIDE LEVEL 31 MMOL/L (20-31); CHLORIDE LEVEL 103 MMOL/L (98-107); CREATININE FOR GFR 0.69 MG/DL (0.55-1.30); GLOMERULAR FILTRATION RATE > 60.0 (>39); GLUCOSE, FASTING 394 MG/DL (74-106); MB/CK RELATIVE INDEX 6.89 (< OR =4); SODIUM LEVEL 138 MMOL/L (136-145); THYROID STIMULATING HORMONE 1.044 uIU/ML (0.55-4.78); THYROXINE (T4) 8.7 UG/DL (4.5-10.9); TOTAL PROTEIN 6.1 G/DL (5.7-8.2)
[2023-08-21] MEDS: IPRATROPIUM 0.5MG/ALBUTEROL 2.5MG INH SOL UD 3ML (DUONEB) NEB ONE (12:45)
[2023-08-21] MEDS ORDERED: ISOVUE-370 76% 100ML VIAL As Ordered ONE (12:55)
[2023-08-21] MEDS: methylPREDNISolone 125MG 2ML VIAL IV ONE (13:27)
[2023-08-21] MEDS: CEFEPIME HCL 2 GM in D5W MINI-BAG PLUS 50 ML IV ONE (13:27)
[2023-08-21 13:32] LABS: CK-MB VALUE MASS 2.4 NG/ML (<3.6)
[2023-08-21 13:33] LABS: MB/CK RELATIVE INDEX 8.57 (< OR =4)
[2023-08-21] MEDS: HYDROcodone/APAP LIQUID 7.5-325MG 15ML UDC (LORTAB ELIXIR) PO ONE (15:04)
[2023-08-21 17:46] LABS: C REACTIVE PROTEIN QUANTITATIV < 0.40 MG/DL (<1.0)
[2023-08-21] MEDS: FUROSEMIDE 40MG/4ML VIAL IV ONE (17:56)
[2023-08-21 17:59] LABS: PROCALCITONIN 0.04 ng/ml
[2023-08-21 18:05] LABS: ERYTHROCYTE SEDIMENTATION RATE 19 mm/hr (0-30)
[2023-08-21] MEDS ORDERED: DEXTROSE 50% 50ML SYRINGE IV PRN (18:30)
[2023-08-21] MEDS ORDERED: GLUCAGON INJ 1MG VIAL SC PRN (18:30)
[2023-08-21] MEDS ORDERED: GLUCOSE 4 GM CHEW PO PRN (18:30)
[2023-08-21] MEDS ORDERED: ALBUTEROL 90 MCG/ACT 8GM HFA INHALER INH PRN (19:30)
[2023-08-21 20:34] VITALS: BP 127/80; TEMP 97.5; O2SAT 96
[2023-08-21] MEDS: INSULIN LISPRO (NovoLOG) PER UNIT SC SCH (21:00)
[2023-08-21] MEDS: INSULIN LISPRO (NovoLOG) PER UNIT SC STA (21:15)
[2023-08-21] MEDS ORDERED: PRED20TA PO (21:45)
[2023-08-21] MEDS ORDERED: LEVO1TAB40 PO (21:45)
[2023-08-21] MEDS ORDERED: IPRA0.00 INH (21:45)
[2023-08-21] MEDS ORDERED: HYDR-3716 PO (21:45)
[2023-08-21] MEDS ORDERED: CALC200T15 PO (21:52)
[2023-08-21] MEDS ORDERED: HOME MED LIST COMPLETE! XX SCH (21:55)
[2023-08-21 22:09] LABS: BEDSIDE GLUCOSE CONFIRMATION 638 MG/DL (LESS THAN 200); BLOOD UREA NITROGEN 35 MG/DL (9-23); CALCIUM LEVEL 8.6 MG/DL (8.3-10.6); CARBON DIOXIDE LEVEL 28 MMOL/L (20-31); CHLORIDE LEVEL 95 MMOL/L (98-107); CREATININE FOR GFR 0.93 MG/DL (0.55-1.30); GLOMERULAR FILTRATION RATE > 60.0 (>39); GLUCOSE, FASTING 638 MG/DL (74-106); POTASSIUM SERUM 4.7 MMOL/L (3.5-5.1); SODIUM LEVEL 131 MMOL/L (136-145)
[2023-08-21] MEDS: LEVEMIR (INSULIN DETEMIR) 1 UNITS/0.01ML SC SCH (22:33)
[2023-08-21] MEDS: traZODone 100 MG TAB PO PRN (22:38)
[2023-08-21] MEDS: BUDESONIDE 0.5 MG/2 ML INHALATION SUSPENSION NEB SCH (22:48)
[2023-08-21 23:30] VITALS: O2SAT 100
[2023-08-21 23:41] VITALS: O2SAT 89
[2023-08-21] MEDS: INSULIN LISPRO (NovoLOG) PER UNIT SC ONE (23:45)
[2023-08-21] MEDS: ALPRAZolam 0.25 MG TAB PO ONE (23:45)
[2023-08-22] VITALS (9 sets, daily range): BP systolic 103–128; BP diastolic 46–84; TEMP 97.2–97.9; O2SAT 88–99
[2023-08-22 07:04] LABS: HEMATOCRIT 34.2 % (36.0-47.0); HEMOGLOBIN 11.1 g/dl (12.0-15.5); LYMPH # 0.6 10^3/uL (1.5-5.0); LYMPH % 7.9 % (24.0-44.0); MEAN CORPUSCULAR HEMOGLOBIN 30.2 pg (27.0-33.0); MEAN CORPUSCULAR HGB CONC 32.5 g/dl (32.0-36.5); MEAN CORPUSCULAR VOLUME 92.9 fl (80.0-96.0); MONO # 0.6 10^3/uL (0.0-0.8); MONO % 7.9 % (2.0-8.0); NEUTROPHILS # 6.1 10^3/uL (1.5-8.5); NEUTROPHILS % 83.6 % (36.0-66.0); PLATELET COUNT, AUTOMATED 102 10^3/uL (150-450); RED BLOOD COUNT 3.68 10^6/uL (4.00-5.40); WHITE BLOOD COUNT 7.3 10^3/uL (4.0-10.0)
[2023-08-22 07:28] LABS: ALBUMIN 3.1 G/DL (3.2-5.2); ALKALINE PHOSPHATASE 57 U/L (46-116); ALT/SGPT 15 U/L (7.0-40); AST/SGOT < 8 U/L (<34); BILIRUBIN,TOTAL 0.5 MG/DL (0.3-1.2); BLOOD UREA NITROGEN 30 MG/DL (9-23); CALCIUM LEVEL 9.2 MG/DL (8.3-10.6); CARBON DIOXIDE LEVEL 34 MMOL/L (20-31); CHLORIDE LEVEL 101 MMOL/L (98-107); CREATININE FOR GFR 0.76 MG/DL (0.55-1.30); GLOMERULAR FILTRATION RATE > 60.0 (>39); GLUCOSE, FASTING 213 MG/DL (74-106); MAGNESIUM LEVEL 1.8 MG/DL (1.8-2.4); POTASSIUM SERUM 3.7 MMOL/L (3.5-5.1); SODIUM LEVEL 140 MMOL/L (136-145); TOTAL PROTEIN 6.2 G/DL (5.7-8.2)
[2023-08-22] MEDS: ENOXAPARIN 40MG/0.4ML SYRINGE (J1650 PER 10MG) SC SCH (08:20)
[2023-08-22] MEDS: SERTRALINE 100 MG TAB PO SCH (08:21)
[2023-08-22] MEDS: PANTOPRAZOLE 40MG TAB (PROTONIX) PO SCH (08:21)
[2023-08-22] MEDS: FUROSEMIDE 100MG/10ML VIAL IV ONE (08:21)
[2023-08-22] MEDS: INSULIN LISPRO (NovoLOG) PER UNIT SC SCH (08:21)
[2023-08-22] MEDS: ASPIRIN 81MG ENTERIC TABLET PO SCH (08:21)
[2023-08-22] MEDS: CLOPIDOGREL 75 MG TAB PO SCH (08:21)
[2023-08-22] MEDS ORDERED: predniSONE 20 MG TAB PO SCH (08:30)
[2023-08-22] MEDS ORDERED: NICOTINE 21MG/24HR 1 EA TRANSDERMAL TOP PRN (08:30)
[2023-08-22] MEDS: ANEXSIA, NORCO 7.5MG/325MG TABLET(HYDROCODONE/APAP) PO SCH (09:34)
[2023-08-22] MEDS: ALPRAZolam 0.5 MG TAB PO PRN (09:39)
[2023-08-22] MEDS ORDERED: MAGIC MOUTHWASH 5ML ORAL SYRINGE SSP PRN (16:05)
[2023-08-22] MEDS ORDERED: NITROGLYCERIN 0.4MG SUBL TABLET SL PRN (16:05)
[2023-08-22] MEDS: SUCRALFATE 1 GM TAB PO SCH (18:11)
[2023-08-22] MEDS: LevoFLOXacin 750 MG TABLET PO SCH (18:11)
[2023-08-22] MEDS: ROSUVASTATIN 10 MG TAB (CRESTOR) PO SCH (18:12)
[2023-08-23] VITALS (8 sets, daily range): BP systolic 98–138; BP diastolic 48–68; TEMP 97.2–97.9; O2SAT 90–97
[2023-08-23 06:40] LABS: BASO % 0.2 % (0.0-1.0); EOS # 0.1 10^3/uL (0.0-0.5); EOS % 1.9 % (0.0-3.0); HEMATOCRIT 35.7 % (36.0-47.0); HEMOGLOBIN 11.3 g/dl (12.0-15.5); LYMPH # 0.7 10^3/uL (1.5-5.0); LYMPH % 11.3 % (24.0-44.0); MEAN CORPUSCULAR HEMOGLOBIN 30.5 pg (27.0-33.0); MEAN CORPUSCULAR HGB CONC 31.7 g/dl (32.0-36.5); MEAN CORPUSCULAR VOLUME 96.2 fl (80.0-96.0); MONO # 0.7 10^3/uL (0.0-0.8); MONO % 10.4 % (2.0-8.0); NEUTROPHILS # 4.8 10^3/uL (1.5-8.5); NEUTROPHILS % 75.6 % (36.0-66.0); RED BLOOD COUNT 3.71 10^6/uL (4.00-5.40); WHITE BLOOD COUNT 6.4 10^3/uL (4.0-10.0)
[2023-08-23 06:41] LABS: PLATELET COUNT, AUTOMATED 92 10^3/uL (150-450)
[2023-08-23 07:30] LABS: ALBUMIN 2.8 G/DL (3.2-5.2); ALKALINE PHOSPHATASE 55 U/L (46-116); ALT/SGPT 14 U/L (7.0-40); AST/SGOT 11 U/L (<34); BILIRUBIN,TOTAL 0.4 MG/DL (0.3-1.2); BLOOD UREA NITROGEN 39 MG/DL (9-23); CALCIUM LEVEL 8.2 MG/DL (8.3-10.6); CARBON DIOXIDE LEVEL 34 MMOL/L (20-31); CHLORIDE LEVEL 100 MMOL/L (98-107); CREATININE FOR GFR 0.88 MG/DL (0.55-1.30); GLOMERULAR FILTRATION RATE > 60.0 (>39); GLUCOSE, FASTING 137 MG/DL (74-106); MAGNESIUM LEVEL 1.7 MG/DL (1.8-2.4); POTASSIUM SERUM 2.7 MMOL/L (3.5-5.1); SODIUM LEVEL 142 MMOL/L (136-145); TOTAL PROTEIN 5.7 G/DL (5.7-8.2)
[2023-08-23] MEDS: LIDOCAINE 5% (LIDODERM) PATCH TD SCH (08:29)
[2023-08-23] MEDS: MAGNESIUM OXIDE 400MG TAB (MAG-OX) PO ONE (08:31)
[2023-08-23] MEDS: VITAMIN D 1,000 INTERNATIONAL UNITS TABLET PO SCH (08:32)
[2023-08-23] MEDS: KCL 10MEQ/100ML SWI (KRUN) 10 MEQ in IV 1 EA IV SCH (08:33)
[2023-08-23] MEDS: POTASSIUM CHLORIDE 10MEQ SR TABLET PO ONE (08:33)
[2023-08-23] MEDS: ANEXSIA, NORCO 7.5MG/325MG TABLET(HYDROCODONE/APAP) PO SCH (13:12)
[2023-08-23 14:04] LABS: BLOOD UREA NITROGEN 37 MG/DL (9-23); CALCIUM LEVEL 8.4 MG/DL (8.3-10.6); CARBON DIOXIDE LEVEL 32 MMOL/L (20-31); CHLORIDE LEVEL 102 MMOL/L (98-107); CREATININE FOR GFR 0.72 MG/DL (0.55-1.30); GLOMERULAR FILTRATION RATE > 60.0 (>39); GLUCOSE, FASTING 127 MG/DL (74-106); POTASSIUM SERUM 3.7 MMOL/L (3.5-5.1); SODIUM LEVEL 140 MMOL/L (136-145)
[2023-08-23] MEDS: POTASSIUM CHLORIDE 10MEQ SR TABLET PO SCH (17:47)
[2023-08-23] MEDS: VANCOMYCIN 125MG CAPSULE PO SCH (18:50)
[2023-08-23] MEDS: LEVEMIR (INSULIN DETEMIR) 1 UNITS/0.01ML SC SCH (21:05)
[2023-08-23] MEDS: MAGNESIUM OXIDE 400MG TAB (MAG-OX) PO SCH (21:08)
[2023-08-24 04:30] VITALS: BP 136/68; TEMP 97.5; O2SAT 97
[2023-08-24 06:02] LABS: BASO % 0.2 % (0.0-1.0); EOS # 0.2 10^3/uL (0.0-0.5); EOS % 4.2 % (0.0-3.0); HEMATOCRIT 36.5 % (36.0-47.0); HEMOGLOBIN 11.5 g/dl (12.0-15.5); LYMPH # 0.9 10^3/uL (1.5-5.0); MEAN CORPUSCULAR HEMOGLOBIN 30.3 pg (27.0-33.0); MEAN CORPUSCULAR HGB CONC 31.5 g/dl (32.0-36.5); MEAN CORPUSCULAR VOLUME 96.3 fl (80.0-96.0); MONO # 0.6 10^3/uL (0.0-0.8); MONO % 10.7 % (2.0-8.0); NEUTROPHILS # 3.5 10^3/uL (1.5-8.5); NEUTROPHILS % 67.5 % (36.0-66.0); RED BLOOD COUNT 3.79 10^6/uL (4.00-5.40); WHITE BLOOD COUNT 5.2 10^3/uL (4.0-10.0)
[2023-08-24 06:03] LABS: PLATELET COUNT, AUTOMATED 90 10^3/uL (150-450)
[2023-08-24 06:29] LABS: ALBUMIN 2.7 G/DL (3.2-5.2); ALKALINE PHOSPHATASE 55 U/L (46-116); ALT/SGPT 15 U/L (7.0-40); AST/SGOT 11 U/L (<34); BILIRUBIN,TOTAL 0.3 MG/DL (0.3-1.2); BLOOD UREA NITROGEN 27 MG/DL (9-23); CALCIUM LEVEL 8.3 MG/DL (8.3-10.6); CARBON DIOXIDE LEVEL 32 MMOL/L (20-31); CHLORIDE LEVEL 108 MMOL/L (98-107); CREATININE FOR GFR 0.64 MG/DL (0.55-1.30); GLOMERULAR FILTRATION RATE > 60.0 (>39); GLUCOSE, FASTING 55 MG/DL (74-106); MAGNESIUM LEVEL 2.1 MG/DL (1.8-2.4); POTASSIUM SERUM 4.5 MMOL/L (3.5-5.1); SODIUM LEVEL 144 MMOL/L (136-145); TOTAL PROTEIN 5.7 G/DL (5.7-8.2)
[2023-08-24 08:00] VITALS: BP 122/49; TEMP 97.3; O2SAT 93
[2023-08-24] MEDS: LACTOBACILLUS ACIDOPHILUS CAP (BACID) PO SCH (08:25)
[2023-08-24 12:00] VITALS: BP 128/87; TEMP 97.1; O2SAT 94
[2023-08-24 16:00] VITALS: BP 113/49; TEMP 97.5; O2SAT 92
[2023-08-24 20:01] VITALS: TEMP 97.7; O2SAT 97
[2023-08-24 21:00] VITALS: O2SAT 96
[2023-08-25] VITALS: BP 142/67; TEMP 97.7; O2SAT 95
[2023-08-25 03:43] VITALS: BP 139/66; TEMP 97.5; O2SAT 94
[2023-08-25 06:06] LABS: BASO % 0.2 % (0.0-1.0); EOS # 0.2 10^3/uL (0.0-0.5); EOS % 4.5 % (0.0-3.0); HEMATOCRIT 35.3 % (36.0-47.0); LYMPH # 0.6 10^3/uL (1.5-5.0); LYMPH % 13.6 % (24.0-44.0); MEAN CORPUSCULAR HEMOGLOBIN 29.9 pg (27.0-33.0); MEAN CORPUSCULAR HGB CONC 31.2 g/dl (32.0-36.5); MEAN CORPUSCULAR VOLUME 95.9 fl (80.0-96.0); MONO # 0.5 10^3/uL (0.0-0.8); NEUTROPHILS # 3.2 10^3/uL (1.5-8.5); NEUTROPHILS % 70.1 % (36.0-66.0); RED BLOOD COUNT 3.68 10^6/uL (4.00-5.40); WHITE BLOOD COUNT 4.6 10^3/uL (4.0-10.0)
[2023-08-25 06:09] LABS: PLATELET COUNT, AUTOMATED 79 10^3/uL (150-450)
[2023-08-25 06:38] LABS: ALBUMIN 2.5 G/DL (3.2-5.2); ALKALINE PHOSPHATASE 56 U/L (46-116); ALT/SGPT 17 U/L (7.0-40); AST/SGOT 11 U/L (<34); BILIRUBIN,TOTAL 0.3 MG/DL (0.3-1.2); BLOOD UREA NITROGEN 20 MG/DL (9-23); CALCIUM LEVEL 8.1 MG/DL (8.3-10.6); CARBON DIOXIDE LEVEL 32 MMOL/L (20-31); CHLORIDE LEVEL 105 MMOL/L (98-107); CREATININE FOR GFR 0.69 MG/DL (0.55-1.30); GLOMERULAR FILTRATION RATE > 60.0 (>39); GLUCOSE, FASTING 277 MG/DL (74-106); MAGNESIUM LEVEL 1.9 MG/DL (1.8-2.4); POTASSIUM SERUM 4.2 MMOL/L (3.5-5.1); SODIUM LEVEL 140 MMOL/L (136-145); TOTAL PROTEIN 5.3 G/DL (5.7-8.2)
[2023-08-25 08:25] VITALS: BP 107/62; TEMP 97.2; O2SAT 90
[2023-08-25] MEDS ORDERED: VANC1CAP6 PO (10:01)
[2023-08-25] MEDS ORDERED: RISATAB3 PO (10:01)
[2023-08-25] MEDS ORDERED: ALBU8.5H INH (10:04)
[2023-08-25] MEDS ORDERED: PRED20TA PO (10:04)
[2023-08-25] MEDS ORDERED: ALBU2.5V10 INH (10:04)
[2023-08-25] MEDS ORDERED: IPRA0.00 INH (10:04)
[2023-08-25] MEDS ORDERED: POTA10808 PO ×2 (11:05→13:03)
[2023-08-25] MEDS ORDERED: METO5TA PO (11:05)
[2023-08-25] MEDS ORDERED: FURO20TA2 PO (11:07)
[2023-08-25 12:00] VITALS: BP 114/62; TEMP 97.5; O2SAT 93
[2023-08-25] MEDS: ONDANSETRON 4MG TAB PO PRN (12:22)
[2023-08-25] MEDS ORDERED: LEVEMIR (INSULIN DETEMIR) 1 UNITS/0.01ML SC SCH (21:00)
== END 2023-08-25 14:31 | disposition home health service (06) | DRG 291 ==
LOC: EDBD 10:46 → M ED 10:46 → M ED INP 16:24 → M MSPAV 20:34
PROVIDERS: ADMIT Student in an Organized Health Care Education/Training Program; ATTEND Student in an Organized Health Care Education/Training Program
DX: I11.0 Hypertensive heart disease with heart failure (principal); I50.33 Acute on chronic diastolic (congestive) heart failure; C68.0 Malignant neoplasm of urethra; C34.90 Malignant neoplasm of unspecified part of unspecified bronchus or lung; J96.11 Chronic respiratory failure with hypoxia; E87.20 Acidosis, unspecified; Z66 Do not resuscitate; D50.9 Iron deficiency anemia, unspecified; I25.10 Atherosclerotic heart disease of native coronary artery without angina pectoris; J44.9 Chronic obstructive pulmonary disease, unspecified; K76.0 Fatty (change of) liver, not elsewhere classified; E78.5 Hyperlipidemia, unspecified; I73.9 Peripheral vascular disease, unspecified; E11.51 Type 2 diabetes mellitus with diabetic peripheral angiopathy without gangrene; K21.9 Gastro-esophageal reflux disease without esophagitis; E87.6 Hypokalemia; E83.42 Hypomagnesemia; Z99.81 Dependence on supplemental oxygen; Z79.52 Long term (current) use of systemic steroids; Z79.2 Long term (current) use of antibiotics; Z92.3 Personal history of irradiation; Z92.21 Personal history of antineoplastic chemotherapy; Z95.5 Presence of coronary angioplasty implant and graft; Z95.828 Presence of other vascular implants and grafts; Z87.891 Personal history of nicotine dependence; Z79.82 Long term (current) use of aspirin; Z79.4 Long term (current) use of insulin; Z79.890 Hormone replacement therapy; Z79.899 Other long term (current) drug therapy; Z88.0 Allergy status to penicillin; Z88.1 Allergy status to other antibiotic agents; Z88.8 Allergy status to other drugs, medicaments and biological substances; Z91.048 Other nonmedicinal substance allergy status

== ENCOUNTER → 2023-08-29 | Outpatient (CLI) | payer MEDICARE, MEDICAID ==
[~2023-08-29] MED LIST changes: +ALBU2.5V10 INH; +ALBU8.5H INH; +CALC200T15 PO; +FURO20TA2 PO; +HYDR-3716 PO; +IPRA0.00 INH; +METO5TA PO; +RISATAB3 PO; +VANC1CAP6 PO
[2023-08-29 14:52] LABS: BASO % 0.2 % (0.0-1.0); EOS # 0.2 10^3/uL (0.0-0.5); EOS % 2.2 % (0.0-3.0); HEMATOCRIT 36.9 % (36.0-47.0); HEMOGLOBIN 11.6 g/dl (12.0-15.5); LYMPH # 0.9 10^3/uL (1.5-5.0); LYMPH % 8.4 % (24.0-44.0); MEAN CORPUSCULAR HEMOGLOBIN 30.3 pg (27.0-33.0); MEAN CORPUSCULAR HGB CONC 31.4 g/dl (32.0-36.5); MEAN CORPUSCULAR VOLUME 96.3 fl (80.0-96.0); MONO # 0.9 10^3/uL (0.0-0.8); MONO % 8.8 % (2.0-8.0); NEUTROPHILS # 8.1 10^3/uL (1.5-8.5); PLATELET COUNT, AUTOMATED 102 10^3/uL (150-450); RED BLOOD COUNT 3.83 10^6/uL (4.00-5.40); WHITE BLOOD COUNT 10.1 10^3/uL (4.0-10.0)
[2023-08-29 15:17] LABS: HEMOGLOBIN A1c 7.7 % (4.0-6.0)
[2023-08-29 15:26] LABS: FERRITIN 73.7 NG/ML (7.3-270.7)
[2023-08-29 15:33] LABS: ALBUMIN 3.1 G/DL (3.2-5.2); ALKALINE PHOSPHATASE 70 U/L (46-116); ALT/SGPT 17 U/L (7.0-40); AST/SGOT 13 U/L (<34); BILIRUBIN,TOTAL 0.5 MG/DL (0.3-1.2); BLOOD UREA NITROGEN 28 MG/DL (9-23); CARBON DIOXIDE LEVEL 34 MMOL/L (20-31); CHLORIDE LEVEL 97 MMOL/L (98-107); CREATININE FOR GFR 0.84 MG/DL (0.55-1.30); GLOMERULAR FILTRATION RATE > 60.0 (>39); GLUCOSE, FASTING 215 MG/DL (74-106); IRON (FE) 52 UG/DL (50-170); POTASSIUM SERUM 4.6 MMOL/L (3.5-5.1); SODIUM LEVEL 138 MMOL/L (136-145); TOTAL PROTEIN 6.3 G/DL (5.7-8.2)
== END ==
LOC: M PLALAB 10:21
PROVIDERS: ATTEND Internal Medicine Hematology
DX: D50.9 Iron deficiency anemia, unspecified (principal); I50.9 Heart failure, unspecified; E11.9 Type 2 diabetes mellitus without complications

== ENCOUNTER 2023-09-04 14:32 | Inpatient (IN) | payer MEDICARE, MEDICAID ==
[~2023-09-04] VITALS: Ht 157.5 cm; Wt 91.1 kg
[2023-09-04] MEDS: IPRATROPIUM 0.5MG/ALBUTEROL 2.5MG INH SOL UD 3ML (DUONEB) NEB PRN (15:19)
[2023-09-04 15:25] LABS: ABG BASE EXCESS 6.1 (-2.0-2.0); ABG HCO3 30.5 MMOL/L (22.0-26.0); ABG O2 SATURATION 91.7 % (95.0-99.0); ABG PARTIAL PRESSURE CO2 43.7 mmHg (35.0-45.0); ABG PARTIAL PRESSURE O2 61.8 mmHg (75.0-100.0); ABG STANDARD HCO3 29.8 MMOL/L. (22.0-26.0); ABG TOTAL CO2 31.9 MMOL/L (23.0-31.0); ABG pH (ARTERIAL) 7.462 UNITS (7.350-7.450)
[2023-09-04 15:31] LABS: BASO % 0.3 % (0.0-1.0); EOS # 0.1 10^3/uL (0.0-0.5); EOS % 1.4 % (0.0-3.0); HEMOGLOBIN 11.2 g/dl (12.0-15.5); LYMPH # 0.6 10^3/uL (1.5-5.0); LYMPH % 8.4 % (24.0-44.0); MEAN CORPUSCULAR HEMOGLOBIN 29.9 pg (27.0-33.0); MEAN CORPUSCULAR VOLUME 93.6 fl (80.0-96.0); MONO # 0.5 10^3/uL (0.0-0.8); MONO % 6.1 % (2.0-8.0); NEUTROPHILS # 6.4 10^3/uL (1.5-8.5); NEUTROPHILS % 83.5 % (36.0-66.0); RED BLOOD COUNT 3.74 10^6/uL (4.00-5.40); WHITE BLOOD COUNT 7.7 10^3/uL (4.0-10.0)
[2023-09-04 15:53] LABS: PLATELET COUNT, AUTOMATED 99 10^3/uL (150-450)
[2023-09-04 15:56] LABS: ALBUMIN 3.1 G/DL (3.2-5.2); ALKALINE PHOSPHATASE 67 U/L (46-116); ALT/SGPT 11 U/L (7.0-40); AST/SGOT 14 U/L (<34); BILIRUBIN,DIRECT 0.2 MG/DL (<0.4); BILIRUBIN,TOTAL 0.6 MG/DL (0.3-1.2); BLOOD UREA NITROGEN 21 MG/DL (9-23); CALCIUM LEVEL 8.6 MG/DL (8.3-10.6); CARBON DIOXIDE LEVEL 32 MMOL/L (20-31); CHLORIDE LEVEL 103 MMOL/L (98-107); CREATININE FOR GFR 0.91 MG/DL (0.55-1.30); GLOMERULAR FILTRATION RATE > 60.0 (>39); GLUCOSE, FASTING 207 MG/DL (74-106); POTASSIUM SERUM 3.9 MMOL/L (3.5-5.1); SODIUM LEVEL 140 MMOL/L (136-145); TOTAL PROTEIN 6.3 G/DL (5.7-8.2)
[2023-09-04 15:59] LABS: THYROID STIMULATING HORMONE 1.156 uIU/ML (0.55-4.78)
[2023-09-04] MEDS ORDERED: ISOVUE-370 76% 100ML VIAL As Ordered ONE (16:08)
[2023-09-04] MEDS ORDERED: GLUCAGON INJ 1MG VIAL SC PRN (17:40)
[2023-09-04] MEDS ORDERED: GLUCOSE 4 GM CHEW PO PRN (17:40)
[2023-09-04] MEDS ORDERED: MOM 30ML SUSPENSION UDC PO PRN (17:40)
[2023-09-04] MEDS ORDERED: MAALOX 30 ML SUSP *UDC PO PRN (17:40)
[2023-09-04 18:13] LABS: PROCALCITONIN 0.11 ng/ml
[2023-09-04] MEDS: FUROSEMIDE 40MG/4ML VIAL IV ONE (18:30)
[2023-09-04] MEDS ORDERED: FURO20TA2 PO (19:52)
[2023-09-04] MEDS ORDERED: BUDESONIDE 0.5 MG/2 ML INHALATION SUSPENSION NEB PRN (19:55)
[2023-09-04] MEDS ORDERED: ADDERALL 5 MG TAB PO PRN (19:55)
[2023-09-04] MEDS ORDERED: NITROGLYCERIN 0.4MG SUBL TABLET SL SCH (19:55)
[2023-09-04] MEDS ORDERED: ALBUTEROL 90 MCG/ACT 8GM HFA INHALER INH PRN (19:55)
[2023-09-04] MEDS ORDERED: HOME MED LIST COMPLETE! XX SCH ×2 (20:00→20:05)
[2023-09-04] MEDS ORDERED: ISOS1TAB35 PO (20:04)
[2023-09-04] MEDS ORDERED: BUME1TAB3 PO (20:04)
[2023-09-04] MEDS: ALPRAZolam 0.5 MG TAB PO PRN (20:46)
[2023-09-04 21:00] VITALS: BP 118/60; TEMP 98; O2SAT 95
[2023-09-04] MEDS: INSULIN LISPRO (NovoLOG) PER UNIT SC SCH (21:00)
[2023-09-04] MEDS: CALCIUM CARBONATE 500 MG CHEW U/D PO SCH (21:00)
[2023-09-04] MEDS: ONDANSETRON 4MG ORAL DISINTEGRATING TAB PO SCH (21:00)
[2023-09-04] MEDS: DOCUSATE SODIUM 100MG CAPSULE PO SCH (21:00)
[2023-09-04] MEDS: ROSUVASTATIN 10 MG TAB (CRESTOR) PO SCH (21:26)
[2023-09-04] MEDS: CETIRIZINE (ZyrTEC) 10 MG TAB PO SCH (21:26)
[2023-09-04] MEDS: SUCRALFATE 1 GM TAB PO SCH (21:26)
[2023-09-04] MEDS: LEVEMIR (INSULIN DETEMIR) 1 UNITS/0.01ML SC SCH (21:26)
[2023-09-04] MEDS: ANEXSIA, NORCO 7.5MG/325MG TABLET(HYDROCODONE/APAP) PO ONE (21:28)
[2023-09-04] MEDS: ADVAIR HFA 230/21MCG INHALER INH SCH (21:31)
[2023-09-04 23:49] VITALS: BP 107/58; TEMP 97; O2SAT 94
[2023-09-05] VITALS (17 sets, daily range): BP systolic 106–116; BP diastolic 51–68; TEMP 97.5–98.3; O2SAT 87–100
[2023-09-05] MEDS: ANEXSIA, NORCO 7.5MG/325MG TABLET(HYDROCODONE/APAP) PO SCH (05:54)
[2023-09-05 06:18] LABS: BASO % 0.2 % (0.0-1.0); EOS # 0.2 10^3/uL (0.0-0.5); EOS % 4.5 % (0.0-3.0); HEMOGLOBIN 9.9 g/dl (12.0-15.5); LYMPH # 0.4 10^3/uL (1.5-5.0); LYMPH % 7.5 % (24.0-44.0); MEAN CORPUSCULAR HEMOGLOBIN 29.3 pg (27.0-33.0); MEAN CORPUSCULAR HGB CONC 30.9 g/dl (32.0-36.5); MEAN CORPUSCULAR VOLUME 94.7 fl (80.0-96.0); MONO # 0.4 10^3/uL (0.0-0.8); MONO % 8.1 % (2.0-8.0); NEUTROPHILS % 79.5 % (36.0-66.0); RED BLOOD COUNT 3.38 10^6/uL (4.00-5.40); WHITE BLOOD COUNT 5.1 10^3/uL (4.0-10.0)
[2023-09-05 06:26] LABS: PLATELET COUNT, AUTOMATED 86 10^3/uL (150-450)
[2023-09-05 06:39] LABS: CALCIUM LEVEL 7.9 MG/DL (8.3-10.6); CREATININE FOR GFR 1.02 MG/DL (0.55-1.30); GLOMERULAR FILTRATION RATE 56.6 (>39); MAGNESIUM LEVEL 1.8 MG/DL (1.8-2.4); POTASSIUM SERUM 3.5 MMOL/L (3.5-5.1)
[2023-09-05] MEDS: TIOTROPIUM INHALER/CAPSULE (SPIRIVA) INH SCH (08:00)
[2023-09-05] MEDS: VITAMIN D 1,000 INTERNATIONAL UNITS TABLET PO SCH (08:26)
[2023-09-05] MEDS: LACTOBACILLUS ACIDOPHILUS CAP (BACID) PO SCH (08:26)
[2023-09-05] MEDS: CLOPIDOGREL 75 MG TAB PO SCH (08:27)
[2023-09-05] MEDS: ASPIRIN 81MG ENTERIC TABLET PO SCH (08:27)
[2023-09-05] MEDS: SERTRALINE 100 MG TAB PO SCH (08:27)
[2023-09-05] MEDS: PANTOPRAZOLE 40MG TAB (PROTONIX) PO SCH (08:27)
[2023-09-05] MEDS: ENOXAPARIN 40MG/0.4ML SYRINGE (J1650 PER 10MG) SC SCH (08:28)
[2023-09-05] MEDS: INSULIN LISPRO (NovoLOG) PER UNIT SC SCH (08:29)
[2023-09-05] MEDS: IPRATROPIUM 0.5MG/ALBUTEROL 2.5MG INH SOL UD 3ML (DUONEB) INH PRN (17:31)
[2023-09-05] MEDS: traZODone 50 MG TAB PO PRN (21:11)
[2023-09-06] VITALS (21 sets, daily range): BP systolic 98–140; BP diastolic 52–68; TEMP 96.5–97.5; O2SAT 84–97
[2023-09-06 05:26] LABS: BASO % 0.2 % (0.0-1.0); EOS # 0.3 10^3/uL (0.0-0.5); EOS % 6.6 % (0.0-3.0); HEMATOCRIT 32.9 % (36.0-47.0); HEMOGLOBIN 10.1 g/dl (12.0-15.5); LYMPH # 0.6 10^3/uL (1.5-5.0); LYMPH % 13.2 % (24.0-44.0); MEAN CORPUSCULAR HEMOGLOBIN 29.2 pg (27.0-33.0); MEAN CORPUSCULAR HGB CONC 30.7 g/dl (32.0-36.5); MEAN CORPUSCULAR VOLUME 95.1 fl (80.0-96.0); MONO # 0.4 10^3/uL (0.0-0.8); NEUTROPHILS # 3.1 10^3/uL (1.5-8.5); NEUTROPHILS % 69.8 % (36.0-66.0); RED BLOOD COUNT 3.46 10^6/uL (4.00-5.40); WHITE BLOOD COUNT 4.4 10^3/uL (4.0-10.0)
[2023-09-06 05:28] LABS: PLATELET COUNT, AUTOMATED 85 10^3/uL (150-450)
[2023-09-06 05:55] LABS: BLOOD UREA NITROGEN 22 MG/DL (9-23); CALCIUM LEVEL 8.6 MG/DL (8.3-10.6); CARBON DIOXIDE LEVEL 35 MMOL/L (20-31); CHLORIDE LEVEL 103 MMOL/L (98-107); CREATININE FOR GFR 0.85 MG/DL (0.55-1.30); GLOMERULAR FILTRATION RATE > 60.0 (>39); GLUCOSE, FASTING 147 MG/DL (74-106); SODIUM LEVEL 142 MMOL/L (136-145)
[2023-09-07] VITALS (20 sets, daily range): BP systolic 104–182; BP diastolic 52–98; TEMP 96.9–97.3; O2SAT 88–98
[2023-09-07 05:45] LABS: BASO % 0.4 % (0.0-1.0); EOS # 0.2 10^3/uL (0.0-0.5); EOS % 4.9 % (0.0-3.0); HEMATOCRIT 34.8 % (36.0-47.0); HEMOGLOBIN 10.4 g/dl (12.0-15.5); LYMPH # 0.7 10^3/uL (1.5-5.0); LYMPH % 13.6 % (24.0-44.0); MEAN CORPUSCULAR HEMOGLOBIN 29.3 pg (27.0-33.0); MEAN CORPUSCULAR HGB CONC 29.9 g/dl (32.0-36.5); MONO # 0.5 10^3/uL (0.0-0.8); MONO % 9.1 % (2.0-8.0); NEUTROPHILS # 3.5 10^3/uL (1.5-8.5); NEUTROPHILS % 71.6 % (36.0-66.0); RED BLOOD COUNT 3.55 10^6/uL (4.00-5.40); WHITE BLOOD COUNT 4.9 10^3/uL (4.0-10.0)
[2023-09-07 05:51] LABS: PLATELET COUNT, AUTOMATED 77 10^3/uL (150-450)
[2023-09-07 06:04] LABS: BLOOD UREA NITROGEN 17 MG/DL (9-23); CALCIUM LEVEL 8.2 MG/DL (8.3-10.6); CARBON DIOXIDE LEVEL 35 MMOL/L (20-31); CHLORIDE LEVEL 103 MMOL/L (98-107); CREATININE FOR GFR 0.73 MG/DL (0.55-1.30); GLOMERULAR FILTRATION RATE > 60.0 (>39); GLUCOSE, FASTING 155 MG/DL (74-106); MAGNESIUM LEVEL 1.8 MG/DL (1.8-2.4); POTASSIUM SERUM 4.1 MMOL/L (3.5-5.1); SODIUM LEVEL 142 MMOL/L (136-145)
[2023-09-07] MEDS: FUROSEMIDE 40MG/4ML VIAL IV ONE (08:17)
[2023-09-07] MEDS: methylPREDNISolone 125MG 2ML VIAL IV ONE (14:53)
[2023-09-07 16:14] LABS: ABG BASE EXCESS 7.1 (-2.0-2.0); ABG HCO3 33.7 MMOL/L (22.0-26.0); ABG O2 SATURATION 91.7 % (95.0-99.0); ABG PARTIAL PRESSURE CO2 58.6 mmHg (35.0-45.0); ABG PARTIAL PRESSURE O2 64.9 mmHg (75.0-100.0); ABG STANDARD HCO3 30.9 MMOL/L. (22.0-26.0); ABG TOTAL CO2 35.5 MMOL/L (23.0-31.0); ABG pH (ARTERIAL) 7.378 UNITS (7.350-7.450)
[2023-09-07] MEDS: BUDESONIDE 0.5 MG/2 ML INHALATION SUSPENSION NEB SCH (20:41)
[2023-09-07] MEDS: IPRATROPIUM 0.5MG/ALBUTEROL 2.5MG INH SOL UD 3ML (DUONEB) NEB SCH (20:42)
[2023-09-08] VITALS (22 sets, daily range): BP systolic 90–128; BP diastolic 51–65; TEMP 96.3–97; O2SAT 81–100
[2023-09-08 06:39] LABS: BASO % 0.3 % (0.0-1.0); HEMATOCRIT 33.4 % (36.0-47.0); HEMOGLOBIN 10.5 g/dl (12.0-15.5); LYMPH # 0.3 10^3/uL (1.5-5.0); MEAN CORPUSCULAR HEMOGLOBIN 29.3 pg (27.0-33.0); MEAN CORPUSCULAR HGB CONC 31.4 g/dl (32.0-36.5); MEAN CORPUSCULAR VOLUME 93.3 fl (80.0-96.0); MONO # 0.1 10^3/uL (0.0-0.8); MONO % 2.3 % (2.0-8.0); NEUTROPHILS # 2.7 10^3/uL (1.5-8.5); NEUTROPHILS % 87.1 % (36.0-66.0); RED BLOOD COUNT 3.58 10^6/uL (4.00-5.40); WHITE BLOOD COUNT 3.1 10^3/uL (4.0-10.0)
[2023-09-08 06:51] LABS: PLATELET COUNT, AUTOMATED 88 10^3/uL (150-450)
[2023-09-08 07:07] LABS: BLOOD UREA NITROGEN 20 MG/DL (9-23); CALCIUM LEVEL 8.3 MG/DL (8.3-10.6); CARBON DIOXIDE LEVEL 31 MMOL/L (20-31); CHLORIDE LEVEL 100 MMOL/L (98-107); CREATININE FOR GFR 0.74 MG/DL (0.55-1.30); GLOMERULAR FILTRATION RATE > 60.0 (>39); GLUCOSE, FASTING 451 MG/DL (74-106); MAGNESIUM LEVEL 1.8 MG/DL (1.8-2.4); POTASSIUM SERUM 4.4 MMOL/L (3.5-5.1); SODIUM LEVEL 138 MMOL/L (136-145)
[2023-09-08] MEDS ORDERED: FUROSEMIDE 40MG/4ML VIAL IV SCH (09:00)
[2023-09-08] MEDS: HumuLIN R (REGULAR) INSULIN (NovoLIN R) **100U/ML** PER UNIT IV STA ×3 (09:21→15:57)
[2023-09-08] MEDS: INSULIN LISPRO (NovoLOG) PER UNIT SC SCH ×2 (12:43→18:05)
[2023-09-09] VITALS (16 sets, daily range): BP systolic 88–133; BP diastolic 50–83; TEMP 96.7–97.5; O2SAT 83–100
[2023-09-09 06:58] LABS: BASO % 0.2 % (0.0-1.0); EOS % 0.8 % (0.0-3.0); HEMATOCRIT 30.4 % (36.0-47.0); HEMOGLOBIN 9.5 g/dl (12.0-15.5); LYMPH # 0.7 10^3/uL (1.5-5.0); LYMPH % 13.1 % (24.0-44.0); MEAN CORPUSCULAR HEMOGLOBIN 29.4 pg (27.0-33.0); MEAN CORPUSCULAR HGB CONC 31.3 g/dl (32.0-36.5); MEAN CORPUSCULAR VOLUME 94.1 fl (80.0-96.0); MONO # 0.5 10^3/uL (0.0-0.8); MONO % 8.8 % (2.0-8.0); NEUTROPHILS % 76.7 % (36.0-66.0); RED BLOOD COUNT 3.23 10^6/uL (4.00-5.40); WHITE BLOOD COUNT 5.2 10^3/uL (4.0-10.0)
[2023-09-09 07:02] LABS: PLATELET COUNT, AUTOMATED 81 10^3/uL (150-450)
[2023-09-09 07:19] LABS: BLOOD UREA NITROGEN 21 MG/DL (9-23); CALCIUM LEVEL 8.5 MG/DL (8.3-10.6); CARBON DIOXIDE LEVEL 35 MMOL/L (20-31); CHLORIDE LEVEL 104 MMOL/L (98-107); CREATININE FOR GFR 0.66 MG/DL (0.55-1.30); GLOMERULAR FILTRATION RATE > 60.0 (>39); GLUCOSE, FASTING 348 MG/DL (74-106); POTASSIUM SERUM 3.8 MMOL/L (3.5-5.1); SODIUM LEVEL 141 MMOL/L (136-145)
[2023-09-09] MEDS: SENOKOT S TAB PO SCH (08:16)
[2023-09-09] MEDS: FUROSEMIDE 40MG/4ML VIAL IV SCH (16:53)
[2023-09-09] MEDS: INSULIN LISPRO (NovoLOG) PER UNIT SC SCH (19:21)
[2023-09-09] MEDS: GLYCOPYRROLATE INJ 0.2 MG/ML 2 ML VIAL NEB SCH (21:12)
[2023-09-09] MEDS: FORMOTEROL FUMARATE 20 MCG/2 ML INHALATION SOLUTION (PERFOROMIST) INH SCH (21:13)
[2023-09-10] VITALS (29 sets, daily range): BP systolic 108–134; BP diastolic 52–63; TEMP 97–97.5; O2SAT 86–99
[2023-09-10] MEDS: DEXTROSE 50% 50ML SYRINGE IV PRN (02:13)
[2023-09-10 06:43] LABS: BASO % 0.4 % (0.0-1.0); EOS # 0.3 10^3/uL (0.0-0.5); EOS % 6.1 % (0.0-3.0); HEMATOCRIT 32.8 % (36.0-47.0); HEMOGLOBIN 9.9 g/dl (12.0-15.5); LYMPH # 0.8 10^3/uL (1.5-5.0); MEAN CORPUSCULAR HEMOGLOBIN 28.8 pg (27.0-33.0); MEAN CORPUSCULAR HGB CONC 30.2 g/dl (32.0-36.5); MEAN CORPUSCULAR VOLUME 95.3 fl (80.0-96.0); MONO # 0.6 10^3/uL (0.0-0.8); MONO % 11.6 % (2.0-8.0); NEUTROPHILS # 3.5 10^3/uL (1.5-8.5); NEUTROPHILS % 66.5 % (36.0-66.0); RED BLOOD COUNT 3.44 10^6/uL (4.00-5.40); WHITE BLOOD COUNT 5.3 10^3/uL (4.0-10.0)
[2023-09-10 06:47] LABS: PLATELET COUNT, AUTOMATED 94 10^3/uL (150-450)
[2023-09-10 07:18] LABS: BLOOD UREA NITROGEN 21 MG/DL (9-23); CALCIUM LEVEL 8.3 MG/DL (8.3-10.6); CARBON DIOXIDE LEVEL 38 MMOL/L (20-31); CHLORIDE LEVEL 103 MMOL/L (98-107); CREATININE FOR GFR 0.76 MG/DL (0.55-1.30); GLOMERULAR FILTRATION RATE > 60.0 (>39); GLUCOSE, FASTING 151 MG/DL (74-106); MAGNESIUM LEVEL 1.8 MG/DL (1.8-2.4); POTASSIUM SERUM 3.8 MMOL/L (3.5-5.1); SODIUM LEVEL 142 MMOL/L (136-145)
[2023-09-10] MEDS: metOLazone 5 MG TAB PO ONE (09:14)
[2023-09-10] MEDS: FUROSEMIDE 40MG/4ML VIAL IV SCH (10:10)
[2023-09-10 18:50] LABS: BLOOD UREA NITROGEN 22 MG/DL (9-23); CALCIUM LEVEL 8.6 MG/DL (8.3-10.6); CARBON DIOXIDE LEVEL 36 MMOL/L (20-31); CHLORIDE LEVEL 101 MMOL/L (98-107); CREATININE FOR GFR 0.81 MG/DL (0.55-1.30); GLOMERULAR FILTRATION RATE > 60.0 (>39); GLUCOSE, FASTING 132 MG/DL (74-106); MAGNESIUM LEVEL 1.8 MG/DL (1.8-2.4); SODIUM LEVEL 142 MMOL/L (136-145)
[2023-09-10] MEDS: LEVEMIR (INSULIN DETEMIR) 1 UNITS/0.01ML SC SCH (21:48)
[2023-09-10] MEDS: traZODone 100 MG TAB PO PRN (21:53)
[2023-09-11] VITALS (21 sets, daily range): BP systolic 116–151; BP diastolic 54–70; TEMP 97.3–98.2; O2SAT 82–99
[2023-09-11 04:35] LABS: BASO % 0.4 % (0.0-1.0); EOS # 0.4 10^3/uL (0.0-0.5); EOS % 7.2 % (0.0-3.0); HEMATOCRIT 34.1 % (36.0-47.0); HEMOGLOBIN 10.5 g/dl (12.0-15.5); LYMPH # 0.9 10^3/uL (1.5-5.0); LYMPH % 19.4 % (24.0-44.0); MEAN CORPUSCULAR HEMOGLOBIN 28.8 pg (27.0-33.0); MEAN CORPUSCULAR HGB CONC 30.8 g/dl (32.0-36.5); MEAN CORPUSCULAR VOLUME 93.4 fl (80.0-96.0); MONO # 0.6 10^3/uL (0.0-0.8); MONO % 12.6 % (2.0-8.0); NEUTROPHILS # 2.9 10^3/uL (1.5-8.5); NEUTROPHILS % 59.8 % (36.0-66.0); RED BLOOD COUNT 3.65 10^6/uL (4.00-5.40); WHITE BLOOD COUNT 4.8 10^3/uL (4.0-10.0)
[2023-09-11 04:43] LABS: PLATELET COUNT, AUTOMATED 99 10^3/uL (150-450)
[2023-09-11 05:16] LABS: BLOOD UREA NITROGEN 24 MG/DL (9-23); CALCIUM LEVEL 8.5 MG/DL (8.3-10.6); CARBON DIOXIDE LEVEL > 40.0 MMOL/L (20-31); CHLORIDE LEVEL 96 MMOL/L (98-107); CREATININE FOR GFR 0.84 MG/DL (0.55-1.30); GLOMERULAR FILTRATION RATE > 60.0 (>39); GLUCOSE, FASTING 146 MG/DL (74-106); MAGNESIUM LEVEL 1.8 MG/DL (1.8-2.4); POTASSIUM SERUM 3.8 MMOL/L (3.5-5.1); SODIUM LEVEL 140 MMOL/L (136-145)
[2023-09-11 07:43] LABS: VENOUS BASE EXCESS 17.3 (-2.0-2.0); VENOUS HCO3 45.4 MMOL/L (23.0-27.0); VENOUS O2 SATURATION 98.4 % (60.0-80.0); VENOUS PARTIAL PRESSURE CO2 75.2 mmHg (38.0-50.0); VENOUS PARTIAL PRESSURE O2 131.8 mmHg (30.0-50.0); VENOUS PH 7.399 UNITS (7.330-7.430); VENOUS STANDARD HCO3 41.3 MMOL/L; VENOUS TOTAL CO2 47.7 MMOL/L (24.0-28.0)
[2023-09-11] MEDS: FUROSEMIDE 100MG/10ML VIAL IV SCH (08:52)
[2023-09-11] MEDS: metOLazone 5 MG TAB PO ONE (08:53)
[2023-09-11] MEDS: methylPREDNISolone 125MG 2ML VIAL IV ONE (12:50)
[2023-09-11] MEDS: ALPRAZolam 0.5 MG TAB PO SCH (15:12)
[2023-09-11 18:34] LABS: ALBUMIN 2.9 G/DL (3.2-5.2); ALKALINE PHOSPHATASE 72 U/L (46-116); ALT/SGPT 15 U/L (7.0-40); AST/SGOT 12 U/L (<34); BILIRUBIN,TOTAL 0.5 MG/DL (0.3-1.2); BLOOD UREA NITROGEN 26 MG/DL (9-23); CALCIUM LEVEL 8.7 MG/DL (8.3-10.6); CARBON DIOXIDE LEVEL 39 MMOL/L (20-31); CHLORIDE LEVEL 92 MMOL/L (98-107); CREATININE FOR GFR 0.88 MG/DL (0.55-1.30); GLOMERULAR FILTRATION RATE > 60.0 (>39); GLUCOSE, FASTING 352 MG/DL (74-106); MAGNESIUM LEVEL 1.6 MG/DL (1.8-2.4); POTASSIUM SERUM 3.8 MMOL/L (3.5-5.1); SODIUM LEVEL 138 MMOL/L (136-145); TOTAL PROTEIN 6.5 G/DL (5.7-8.2)
[2023-09-11] MEDS: MAG SULF 1GM/100ML (MAG RUN) 1 GM in IV 1 EA IV SCH (19:46)
[2023-09-12] VITALS (9 sets, daily range): BP systolic 123–147; BP diastolic 59–64; TEMP 97.2–98; O2SAT 88–100
[2023-09-12 05:06] LABS: ALBUMIN 2.8 G/DL (3.2-5.2); ALKALINE PHOSPHATASE 69 U/L (46-116); ALT/SGPT 14 U/L (7.0-40); AST/SGOT 9 U/L (<34); BILIRUBIN,TOTAL 0.5 MG/DL (0.3-1.2); BLOOD UREA NITROGEN 32 MG/DL (9-23); CALCIUM LEVEL 8.4 MG/DL (8.3-10.6); CARBON DIOXIDE LEVEL > 40.0 MMOL/L (20-31); CHLORIDE LEVEL 88 MMOL/L (98-107); CREATININE FOR GFR 0.82 MG/DL (0.55-1.30); GLOMERULAR FILTRATION RATE > 60.0 (>39); GLUCOSE, FASTING 452 MG/DL (74-106); MAGNESIUM LEVEL 2.3 MG/DL (1.8-2.4); POTASSIUM SERUM 3.6 MMOL/L (3.5-5.1); SODIUM LEVEL 132 MMOL/L (136-145); TOTAL PROTEIN 6.2 G/DL (5.7-8.2)
[2023-09-12] MEDS: INSULIN LISPRO (NovoLOG) PER UNIT SC STA (05:34)
[2023-09-12] MEDS: methylPREDNISolone 125MG 2ML VIAL IV SCH (08:58)
[2023-09-12] MEDS: LEVEMIR (INSULIN DETEMIR) 1 UNITS/0.01ML SC SCH ×2 (08:58→21:00)
[2023-09-12 18:55] LABS: ALBUMIN 3.1 G/DL (3.2-5.2); ALKALINE PHOSPHATASE 79 U/L (46-116); ALT/SGPT 13 U/L (7.0-40); AST/SGOT 8 U/L (<34); BILIRUBIN,TOTAL 0.5 MG/DL (0.3-1.2); BLOOD UREA NITROGEN 36 MG/DL (9-23); CALCIUM LEVEL 8.7 MG/DL (8.3-10.6); CARBON DIOXIDE LEVEL 38 MMOL/L (20-31); CHLORIDE LEVEL 84 MMOL/L (98-107); CREATININE FOR GFR 0.85 MG/DL (0.55-1.30); GLOMERULAR FILTRATION RATE > 60.0 (>39); GLUCOSE, FASTING 675 MG/DL (74-106); MAGNESIUM LEVEL 1.9 MG/DL (1.8-2.4); POTASSIUM SERUM 3.1 MMOL/L (3.5-5.1); SODIUM LEVEL 131 MMOL/L (136-145); TOTAL PROTEIN 6.8 G/DL (5.7-8.2)
[2023-09-12] MEDS ORDERED: INSULIN IV RATE CHANGE DOCUMENTATION ML/HR XX SCH (19:10)
[2023-09-12] MEDS: INSULIN REGULAR IN 0.9 % NACL 100 UNIT in IV 1 EA IV SCH (20:03)
[2023-09-12] MEDS: POTASSIUM CHLORIDE 10MEQ SR TABLET PO ONE (21:33)
[2023-09-13] VITALS (11 sets, daily range): BP systolic 105–148; BP diastolic 52–84; TEMP 97.5–98.4; O2SAT 84–100
[2023-09-13 04:51] LABS: HEMATOCRIT 34.9 % (36.0-47.0); HEMOGLOBIN 11.4 g/dl (12.0-15.5); MEAN CORPUSCULAR HEMOGLOBIN 28.6 pg (27.0-33.0); MEAN CORPUSCULAR HGB CONC 32.7 g/dl (32.0-36.5); MEAN CORPUSCULAR VOLUME 87.7 fl (80.0-96.0); PLATELET COUNT, AUTOMATED 109 10^3/uL (150-450); RED BLOOD COUNT 3.98 10^6/uL (4.00-5.40); WHITE BLOOD COUNT 7.3 10^3/uL (4.0-10.0)
[2023-09-13 05:28] LABS: ALKALINE PHOSPHATASE 70 U/L (46-116); ALT/SGPT 13 U/L (7.0-40); AST/SGOT 8 U/L (<34); BILIRUBIN,TOTAL 0.4 MG/DL (0.3-1.2); BLOOD UREA NITROGEN 38 MG/DL (9-23); CALCIUM LEVEL 9.1 MG/DL (8.3-10.6); CARBON DIOXIDE LEVEL > 40.0 MMOL/L (20-31); CHLORIDE LEVEL 89 MMOL/L (98-107); CREATININE FOR GFR 0.84 MG/DL (0.55-1.30); GLOMERULAR FILTRATION RATE > 60.0 (>39); GLUCOSE, FASTING 166 MG/DL (74-106); MAGNESIUM LEVEL 1.8 MG/DL (1.8-2.4); POTASSIUM SERUM 3.1 MMOL/L (3.5-5.1); SODIUM LEVEL 137 MMOL/L (136-145); TOTAL PROTEIN 6.6 G/DL (5.7-8.2)
[2023-09-13] MEDS: MAG SULF 1GM/100ML (MAG RUN) 1 GM in IV 1 EA IV ONE (08:00)
[2023-09-13] MEDS: POTASSIUM CHLORIDE 10MEQ SR TABLET PO ONE ×3 (08:56→16:27)
[2023-09-13] MEDS: KCL 10MEQ/100ML SWI (KRUN) 10 MEQ in IV 1 EA IV SCH (08:58)
[2023-09-13] MEDS: metOLazone 5 MG TAB PO ONE (16:27)
[2023-09-13 19:23] LABS: ALBUMIN 3.1 G/DL (3.2-5.2); ALKALINE PHOSPHATASE 74 U/L (46-116); ALT/SGPT 18 U/L (7.0-40); AST/SGOT 14 U/L (<34); BILIRUBIN,TOTAL 0.4 MG/DL (0.3-1.2); BLOOD UREA NITROGEN 38 MG/DL (9-23); CARBON DIOXIDE LEVEL > 40.0 MMOL/L (20-31); CHLORIDE LEVEL 88 MMOL/L (98-107); CREATININE FOR GFR 0.94 MG/DL (0.55-1.30); GLOMERULAR FILTRATION RATE > 60.0 (>39); GLUCOSE, FASTING 321 MG/DL (74-106); MAGNESIUM LEVEL 1.9 MG/DL (1.8-2.4); POTASSIUM SERUM 4.5 MMOL/L (3.5-5.1); SODIUM LEVEL 133 MMOL/L (136-145); TOTAL PROTEIN 6.8 G/DL (5.7-8.2)
[2023-09-14] VITALS (18 sets, daily range): BP systolic 109–138; BP diastolic 51–74; TEMP 97.3–98.4; O2SAT 83–99
[2023-09-14 06:06] LABS: ALBUMIN 3.1 G/DL (3.2-5.2); ALKALINE PHOSPHATASE 68 U/L (46-116); ALT/SGPT 17 U/L (7.0-40); AST/SGOT 15 U/L (<34); BILIRUBIN,TOTAL 0.5 MG/DL (0.3-1.2); BLOOD UREA NITROGEN 44 MG/DL (9-23); CALCIUM LEVEL 9.2 MG/DL (8.3-10.6); CARBON DIOXIDE LEVEL > 40.0 MMOL/L (20-31); CHLORIDE LEVEL 90 MMOL/L (98-107); CREATININE FOR GFR 1.05 MG/DL (0.55-1.30); GLOMERULAR FILTRATION RATE 54.7 (>39); GLUCOSE, FASTING 65 MG/DL (74-106); POTASSIUM SERUM 3.7 MMOL/L (3.5-5.1); SODIUM LEVEL 138 MMOL/L (136-145); TOTAL PROTEIN 6.9 G/DL (5.7-8.2)
[2023-09-14] MEDS: LEVEMIR (INSULIN DETEMIR) 1 UNITS/0.01ML SC SCH ×2 (08:36→21:48)
[2023-09-14] MEDS: FUROSEMIDE 100MG/10ML VIAL IV SCH (08:37)
[2023-09-14 11:32] LABS: PHOSPHORUS LEVEL 4.3 MG/DL (2.4-5.1)
[2023-09-14 12:08] LABS: VENOUS BASE EXCESS 11.2 (-2.0-2.0); VENOUS HCO3 37.8 MMOL/L (23.0-27.0); VENOUS PARTIAL PRESSURE CO2 57.7 mmHg (38.0-50.0); VENOUS PARTIAL PRESSURE O2 143.5 mmHg (30.0-50.0); VENOUS PH 7.434 UNITS (7.330-7.430); VENOUS TOTAL CO2 39.6 MMOL/L (24.0-28.0)
[2023-09-15] VITALS (16 sets, daily range): BP systolic 100–118; BP diastolic 47–67; TEMP 96.7–97.3; O2SAT 65–100
[2023-09-15 07:07] LABS: HEMATOCRIT 37.9 % (36.0-47.0); HEMOGLOBIN 12.3 g/dl (12.0-15.5); MEAN CORPUSCULAR HEMOGLOBIN 28.7 pg (27.0-33.0); MEAN CORPUSCULAR HGB CONC 32.5 g/dl (32.0-36.5); MEAN CORPUSCULAR VOLUME 88.6 fl (80.0-96.0); PLATELET COUNT, AUTOMATED 111 10^3/uL (150-450); RED BLOOD COUNT 4.28 10^6/uL (4.00-5.40); WHITE BLOOD COUNT 6.6 10^3/uL (4.0-10.0)
[2023-09-15 07:32] LABS: ALKALINE PHOSPHATASE 74 U/L (46-116); ALT/SGPT 17 U/L (7.0-40); AST/SGOT 15 U/L (<34); BILIRUBIN,TOTAL 0.5 MG/DL (0.3-1.2); BLOOD UREA NITROGEN 47 MG/DL (9-23); CALCIUM LEVEL 9.1 MG/DL (8.3-10.6); CARBON DIOXIDE LEVEL > 40.0 MMOL/L (20-31); CHLORIDE LEVEL 90 MMOL/L (98-107); CREATININE FOR GFR 0.87 MG/DL (0.55-1.30); GLOMERULAR FILTRATION RATE > 60.0 (>39); GLUCOSE, FASTING 102 MG/DL (74-106); POTASSIUM SERUM 3.4 MMOL/L (3.5-5.1); SODIUM LEVEL 140 MMOL/L (136-145); TOTAL PROTEIN 6.9 G/DL (5.7-8.2)
[2023-09-15] MEDS: methylPREDNISolone 40MG 1ML VIAL IV SCH (09:00)
[2023-09-15] MEDS: LEVEMIR (INSULIN DETEMIR) 1 UNITS/0.01ML SC SCH ×2 (09:03→20:56)
[2023-09-15] MEDS: POTASSIUM CHLORIDE 10MEQ SR TABLET PO ONE (10:28)
[2023-09-15] MEDS: INSULIN LISPRO (NovoLOG) PER UNIT SC ONE (20:55)
[2023-09-15 23:54] LABS: ABG BASE EXCESS 11.7 (-2.0-2.0); ABG HCO3 39.1 MMOL/L (22.0-26.0); ABG O2 SATURATION 94.8 % (95.0-99.0); ABG PARTIAL PRESSURE O2 77.5 mmHg (75.0-100.0); ABG STANDARD HCO3 35.4 MMOL/L. (22.0-26.0); ABG TOTAL CO2 41.2 MMOL/L (23.0-31.0); ABG pH (ARTERIAL) 7.388 UNITS (7.350-7.450)
[2023-09-15 23:56] LABS: ABG PARTIAL PRESSURE CO2 66.4 mmHg (35.0-45.0)
[2023-09-16] VITALS (39 sets, daily range): BP systolic 118–142; BP diastolic 61–70; TEMP 96.7–97.2; O2SAT 79–100
[2023-09-16 06:10] LABS: HEMATOCRIT 35.6 % (36.0-47.0); HEMOGLOBIN 11.6 g/dl (12.0-15.5); MEAN CORPUSCULAR HEMOGLOBIN 28.7 pg (27.0-33.0); MEAN CORPUSCULAR HGB CONC 32.6 g/dl (32.0-36.5); MEAN CORPUSCULAR VOLUME 88.1 fl (80.0-96.0); PLATELET COUNT, AUTOMATED 109 10^3/uL (150-450); RED BLOOD COUNT 4.04 10^6/uL (4.00-5.40); WHITE BLOOD COUNT 8.2 10^3/uL (4.0-10.0)
[2023-09-16 06:40] LABS: ALBUMIN 2.9 G/DL (3.2-5.2); ALKALINE PHOSPHATASE 70 U/L (46-116); ALT/SGPT 23 U/L (7.0-40); AST/SGOT 18 U/L (<34); BILIRUBIN,TOTAL 0.4 MG/DL (0.3-1.2); BLOOD UREA NITROGEN 51 MG/DL (9-23); CALCIUM LEVEL 8.9 MG/DL (8.3-10.6); CARBON DIOXIDE LEVEL > 40.0 MMOL/L (20-31); CHLORIDE LEVEL 91 MMOL/L (98-107); GLOMERULAR FILTRATION RATE > 60.0 (>39); GLUCOSE, FASTING 171 MG/DL (74-106); SODIUM LEVEL 135 MMOL/L (136-145); TOTAL PROTEIN 6.6 G/DL (5.7-8.2)
[2023-09-16] MEDS: INSULIN LISPRO (NovoLOG) PER UNIT SC SCH (09:13)
[2023-09-16] MEDS: LEVEMIR (INSULIN DETEMIR) 1 UNITS/0.01ML SC SCH (22:21)
[2023-09-17] VITALS (37 sets, daily range): BP systolic 108–137; BP diastolic 54–64; TEMP 96.3–97.6; O2SAT 73–100
[2023-09-17 06:06] LABS: HEMATOCRIT 36.4 % (36.0-47.0); HEMOGLOBIN 11.9 g/dl (12.0-15.5); MEAN CORPUSCULAR HEMOGLOBIN 28.9 pg (27.0-33.0); MEAN CORPUSCULAR HGB CONC 32.7 g/dl (32.0-36.5); MEAN CORPUSCULAR VOLUME 88.3 fl (80.0-96.0); PLATELET COUNT, AUTOMATED 118 10^3/uL (150-450); RED BLOOD COUNT 4.12 10^6/uL (4.00-5.40); WHITE BLOOD COUNT 9.3 10^3/uL (4.0-10.0)
[2023-09-17 06:37] LABS: ALBUMIN 2.9 G/DL (3.2-5.2); ALKALINE PHOSPHATASE 67 U/L (46-116); ALT/SGPT 25 U/L (7.0-40); AST/SGOT 17 U/L (<34); BILIRUBIN,TOTAL 0.4 MG/DL (0.3-1.2); BLOOD UREA NITROGEN 47 MG/DL (9-23); CALCIUM LEVEL 8.9 MG/DL (8.3-10.6); CARBON DIOXIDE LEVEL > 40.0 MMOL/L (20-31); CHLORIDE LEVEL 94 MMOL/L (98-107); GLOMERULAR FILTRATION RATE > 60.0 (>39); GLUCOSE, FASTING 157 MG/DL (74-106); POTASSIUM SERUM 3.7 MMOL/L (3.5-5.1); SODIUM LEVEL 139 MMOL/L (136-145); TOTAL PROTEIN 6.3 G/DL (5.7-8.2)
[2023-09-17] MEDS: INSULIN LISPRO (NovoLOG) PER UNIT SC SCH (07:30)
[2023-09-18] VITALS (28 sets, daily range): BP systolic 110–156; BP diastolic 53–68; TEMP 97.2–97.8; O2SAT 71–100
[2023-09-18 06:53] LABS: HEMOGLOBIN 11.5 g/dl (12.0-15.5); MEAN CORPUSCULAR HEMOGLOBIN 28.8 pg (27.0-33.0); MEAN CORPUSCULAR HGB CONC 31.9 g/dl (32.0-36.5); MEAN CORPUSCULAR VOLUME 90.2 fl (80.0-96.0); PLATELET COUNT, AUTOMATED 114 10^3/uL (150-450); RED BLOOD COUNT 3.99 10^6/uL (4.00-5.40); WHITE BLOOD COUNT 8.7 10^3/uL (4.0-10.0)
[2023-09-18 07:40] LABS: ALBUMIN 2.8 G/DL (3.2-5.2); ALKALINE PHOSPHATASE 64 U/L (46-116); ALT/SGPT 21 U/L (7.0-40); AST/SGOT 14 U/L (<34); BILIRUBIN,TOTAL 0.3 MG/DL (0.3-1.2); BLOOD UREA NITROGEN 46 MG/DL (9-23); CALCIUM LEVEL 8.6 MG/DL (8.3-10.6); CARBON DIOXIDE LEVEL > 40.0 MMOL/L (20-31); CHLORIDE LEVEL 94 MMOL/L (98-107); CREATININE FOR GFR 0.84 MG/DL (0.55-1.30); GLOMERULAR FILTRATION RATE > 60.0 (>39); GLUCOSE, FASTING 110 MG/DL (74-106); POTASSIUM SERUM 2.8 MMOL/L (3.5-5.1); SODIUM LEVEL 139 MMOL/L (136-145)
[2023-09-18] MEDS: POTASSIUM CHLORIDE 10MEQ SR TABLET PO SCH (08:49)
[2023-09-18] MEDS: metOLazone 5 MG TAB PO ONE (08:50)
[2023-09-18] MEDS: predniSONE 10MG TAB PO SCH (08:50)
[2023-09-19] VITALS (15 sets, daily range): BP systolic 99–150; BP diastolic 44–70; TEMP 97.1–97.7; O2SAT 3–100
[2023-09-19 06:51] LABS: HEMOGLOBIN 12.1 g/dl (12.0-15.5); MEAN CORPUSCULAR HEMOGLOBIN 28.9 pg (27.0-33.0); MEAN CORPUSCULAR HGB CONC 31.8 g/dl (32.0-36.5); MEAN CORPUSCULAR VOLUME 90.9 fl (80.0-96.0); PLATELET COUNT, AUTOMATED 122 10^3/uL (150-450); RED BLOOD COUNT 4.18 10^6/uL (4.00-5.40); WHITE BLOOD COUNT 12.9 10^3/uL (4.0-10.0)
[2023-09-19 07:18] LABS: ALBUMIN 2.9 G/DL (3.2-5.2); ALKALINE PHOSPHATASE 66 U/L (46-116); ALT/SGPT 22 U/L (7.0-40); AST/SGOT 14 U/L (<34); BILIRUBIN,TOTAL 0.3 MG/DL (0.3-1.2); BLOOD UREA NITROGEN 38 MG/DL (9-23); CALCIUM LEVEL 8.6 MG/DL (8.3-10.6); CARBON DIOXIDE LEVEL > 40.0 MMOL/L (20-31); CHLORIDE LEVEL 97 MMOL/L (98-107); CREATININE FOR GFR 0.96 MG/DL (0.55-1.30); GLOMERULAR FILTRATION RATE > 60.0 (>39); GLUCOSE, FASTING 93 MG/DL (74-106); POTASSIUM SERUM 3.1 MMOL/L (3.5-5.1); SODIUM LEVEL 142 MMOL/L (136-145); TOTAL PROTEIN 6.1 G/DL (5.7-8.2)
[2023-09-19] MEDS: POTASSIUM CHLORIDE 10MEQ SR TABLET PO SCH (10:02)
[2023-09-19] MEDS: POTASSIUM CHLORIDE 10MEQ SR TABLET PO ONE (18:37)
[2023-09-19] MEDS: ACETAMINOPHEN TAB 650MG DOSE (2X325MG) PO PRN (21:15)
[2023-09-20] VITALS (18 sets, daily range): BP systolic 111–148; BP diastolic 54–66; TEMP 97–97.9; O2SAT 92–100
[2023-09-20 06:18] LABS: BASO % 0.2 % (0.0-1.0); EOS % 0.4 % (0.0-3.0); HEMATOCRIT 34.3 % (36.0-47.0); HEMOGLOBIN 10.9 g/dl (12.0-15.5); LYMPH # 0.8 10^3/uL (1.5-5.0); LYMPH % 8.8 % (24.0-44.0); MEAN CORPUSCULAR HEMOGLOBIN 28.5 pg (27.0-33.0); MEAN CORPUSCULAR HGB CONC 31.8 g/dl (32.0-36.5); MEAN CORPUSCULAR VOLUME 89.6 fl (80.0-96.0); MONO # 0.7 10^3/uL (0.0-0.8); MONO % 7.6 % (2.0-8.0); NEUTROPHILS # 7.7 10^3/uL (1.5-8.5); NEUTROPHILS % 80.7 % (36.0-66.0); PLATELET COUNT, AUTOMATED 109 10^3/uL (150-450); RED BLOOD COUNT 3.83 10^6/uL (4.00-5.40); WHITE BLOOD COUNT 9.5 10^3/uL (4.0-10.0)
[2023-09-20 06:49] LABS: BLOOD UREA NITROGEN 36 MG/DL (9-23); CALCIUM LEVEL 8.4 MG/DL (8.3-10.6); CARBON DIOXIDE LEVEL 38 MMOL/L (20-31); CHLORIDE LEVEL 96 MMOL/L (98-107); CREATININE FOR GFR 0.85 MG/DL (0.55-1.30); GLOMERULAR FILTRATION RATE > 60.0 (>39); GLUCOSE, FASTING 198 MG/DL (74-106); MAGNESIUM LEVEL 1.8 MG/DL (1.8-2.4); POTASSIUM SERUM 3.5 MMOL/L (3.5-5.1); SODIUM LEVEL 137 MMOL/L (136-145)
[2023-09-20] MEDS: BENZONATATE 100MG CAPSULE PO ONE (16:25)
[2023-09-20] MEDS: BENZONATATE 100MG CAPSULE PO SCH (21:46)
[2023-09-21] VITALS (30 sets, daily range): BP systolic 109–140; BP diastolic 55–65; TEMP 97.2–97.8; O2SAT 86–100
[2023-09-21 05:57] LABS: BLOOD UREA NITROGEN 34 MG/DL (9-23); CALCIUM LEVEL 8.8 MG/DL (8.3-10.6); CARBON DIOXIDE LEVEL 38 MMOL/L (20-31); CHLORIDE LEVEL 99 MMOL/L (98-107); CREATININE FOR GFR 0.72 MG/DL (0.55-1.30); GLOMERULAR FILTRATION RATE > 60.0 (>39); GLUCOSE, FASTING 128 MG/DL (74-106); MAGNESIUM LEVEL 1.9 MG/DL (1.8-2.4); POTASSIUM SERUM 3.9 MMOL/L (3.5-5.1); SODIUM LEVEL 140 MMOL/L (136-145)
[2023-09-22] VITALS (18 sets, daily range): BP systolic 117–139; BP diastolic 58–85; TEMP 97.7–98.2; O2SAT 89–100
[2023-09-22 05:56] LABS: BLOOD UREA NITROGEN 35 MG/DL (9-23); CALCIUM LEVEL 8.4 MG/DL (8.3-10.6); CARBON DIOXIDE LEVEL > 40.0 MMOL/L (20-31); CHLORIDE LEVEL 102 MMOL/L (98-107); CREATININE FOR GFR 0.89 MG/DL (0.55-1.30); GLOMERULAR FILTRATION RATE > 60.0 (>39); GLUCOSE, FASTING 79 MG/DL (74-106); MAGNESIUM LEVEL 1.8 MG/DL (1.8-2.4); POTASSIUM SERUM 3.9 MMOL/L (3.5-5.1); SODIUM LEVEL 143 MMOL/L (136-145)
[2023-09-22] MEDS: ANEXSIA, NORCO 7.5MG/325MG TABLET(HYDROCODONE/APAP) PO SCH (21:43)
[2023-09-23 04:44] VITALS: BP 102/58; TEMP 97.3; O2SAT 98
[2023-09-23 06:08] LABS: BASO % 0.3 % (0.0-1.0); EOS # 0.1 10^3/uL (0.0-0.5); EOS % 0.8 % (0.0-3.0); HEMOGLOBIN 10.1 g/dl (12.0-15.5); LYMPH % 12.9 % (24.0-44.0); MEAN CORPUSCULAR HEMOGLOBIN 28.5 pg (27.0-33.0); MEAN CORPUSCULAR HGB CONC 31.6 g/dl (32.0-36.5); MEAN CORPUSCULAR VOLUME 90.1 fl (80.0-96.0); MONO # 0.6 10^3/uL (0.0-0.8); MONO % 8.4 % (2.0-8.0); NEUTROPHILS # 5.5 10^3/uL (1.5-8.5); NEUTROPHILS % 75.2 % (36.0-66.0); PLATELET COUNT, AUTOMATED 100 10^3/uL (150-450); RED BLOOD COUNT 3.55 10^6/uL (4.00-5.40); WHITE BLOOD COUNT 7.4 10^3/uL (4.0-10.0)
[2023-09-23 06:34] LABS: BLOOD UREA NITROGEN 38 MG/DL (9-23); CALCIUM LEVEL 8.2 MG/DL (8.3-10.6); CARBON DIOXIDE LEVEL 38 MMOL/L (20-31); CHLORIDE LEVEL 98 MMOL/L (98-107); CREATININE FOR GFR 0.79 MG/DL (0.55-1.30); GLOMERULAR FILTRATION RATE > 60.0 (>39); GLUCOSE, FASTING 176 MG/DL (74-106); MAGNESIUM LEVEL 1.7 MG/DL (1.8-2.4); POTASSIUM SERUM 3.3 MMOL/L (3.5-5.1); SODIUM LEVEL 140 MMOL/L (136-145)
[2023-09-23] MEDS: POTASSIUM CHLORIDE 10MEQ SR TABLET PO ONE (07:08)
[2023-09-23] MEDS: MAGNESIUM OXIDE 400MG TAB (MAG-OX) PO ONE (07:08)
[2023-09-23] MEDS: POTASSIUM CHLORIDE 10MEQ SR TABLET PO SCH (07:58)
[2023-09-23] MEDS: MAGNESIUM OXIDE 400MG TAB (MAG-OX) PO SCH (07:59)
[2023-09-23 12:00] VITALS: BP 104/55; TEMP 98.1; O2SAT 98
[2023-09-23 18:08] LABS: BLOOD UREA NITROGEN 38 MG/DL (9-23); CARBON DIOXIDE LEVEL 35 MMOL/L (20-31); CHLORIDE LEVEL 96 MMOL/L (98-107); CREATININE FOR GFR 0.81 MG/DL (0.55-1.30); GLOMERULAR FILTRATION RATE > 60.0 (>39); GLUCOSE, FASTING 449 MG/DL (74-106); MAGNESIUM LEVEL 1.7 MG/DL (1.8-2.4); POTASSIUM SERUM 4.5 MMOL/L (3.5-5.1); SODIUM LEVEL 135 MMOL/L (136-145)
[2023-09-23 20:27] VITALS: BP 108/59; TEMP 97.9; O2SAT 92
[2023-09-24 04:00] VITALS: BP 105/54; TEMP 97.7; O2SAT 98
[2023-09-24 07:45] LABS: BLOOD UREA NITROGEN 28 MG/DL (9-23); CALCIUM LEVEL 8.3 MG/DL (8.3-10.6); CARBON DIOXIDE LEVEL 34 MMOL/L (20-31); CHLORIDE LEVEL 103 MMOL/L (98-107); CREATININE FOR GFR 0.74 MG/DL (0.55-1.30); GLOMERULAR FILTRATION RATE > 60.0 (>39); GLUCOSE, FASTING 204 MG/DL (74-106); MAGNESIUM LEVEL 1.8 MG/DL (1.8-2.4); POTASSIUM SERUM 4.3 MMOL/L (3.5-5.1); SODIUM LEVEL 141 MMOL/L (136-145)
[2023-09-24] MEDS: metOLazone 5 MG TAB PO SCH (08:48)
[2023-09-24 12:00] VITALS: BP 108/51; TEMP 97.9; O2SAT 100
[2023-09-24 21:50] VITALS: BP_SYST 106; BP_SYST 160; BP_DIAS 50; TEMP 97.9; O2SAT 93
[2023-09-25 05:23] VITALS: BP 110/49; TEMP 97.7; O2SAT 89
[2023-09-25 06:54] LABS: BLOOD UREA NITROGEN 25 MG/DL (9-23); CALCIUM LEVEL 8.3 MG/DL (8.3-10.6); CARBON DIOXIDE LEVEL 39 MMOL/L (20-31); CHLORIDE LEVEL 100 MMOL/L (98-107); CREATININE FOR GFR 0.76 MG/DL (0.55-1.30); GLOMERULAR FILTRATION RATE > 60.0 (>39); GLUCOSE, FASTING 100 MG/DL (74-106); MAGNESIUM LEVEL 1.9 MG/DL (1.8-2.4); POTASSIUM SERUM 3.8 MMOL/L (3.5-5.1); SODIUM LEVEL 141 MMOL/L (136-145)
[2023-09-25 08:10] VITALS: O2SAT 95
[2023-09-25] MEDS: NICOTINE 21MG/24HR 1 EA TRANSDERMAL TOP PRN (09:40)
[2023-09-25 12:00] VITALS: BP 110/48; TEMP 98.1; O2SAT 97
[2023-09-25] MEDS: LEVALBUTEROL 1.25MG 0.5ML CONCENTRATE NEB INH SCH (14:01)
[2023-09-25] MEDS: VANCOMYCIN 125MG CAPSULE PO SCH (15:24)
[2023-09-25 16:22] LABS: PROCALCITONIN 0.09 ng/ml
[2023-09-25] MEDS: CEFEPIME HCL 2 GM in D5W MINI-BAG PLUS 50 ML IV SCH (17:00)
[2023-09-25 19:49] LABS: URINE STREP PNEUMONIAE ANTIGEN NOT DETECTED (NOT DETECT)
[2023-09-25 20:00] VITALS: BP 107/48; TEMP 97.9; O2SAT 93
[2023-09-26 04:00] VITALS: BP 115/50; TEMP 97.7; O2SAT 100
[2023-09-26 06:21] LABS: BASO % 0.2 % (0.0-1.0); EOS # 0.2 10^3/uL (0.0-0.5); EOS % 2.8 % (0.0-3.0); HEMOGLOBIN 10.5 g/dl (12.0-15.5); LYMPH # 0.9 10^3/uL (1.5-5.0); LYMPH % 10.9 % (24.0-44.0); MEAN CORPUSCULAR HEMOGLOBIN 28.9 pg (27.0-33.0); MEAN CORPUSCULAR HGB CONC 31.8 g/dl (32.0-36.5); MEAN CORPUSCULAR VOLUME 90.9 fl (80.0-96.0); MONO # 0.6 10^3/uL (0.0-0.8); MONO % 7.2 % (2.0-8.0); NEUTROPHILS # 6.5 10^3/uL (1.5-8.5); NEUTROPHILS % 77.2 % (36.0-66.0); RED BLOOD COUNT 3.63 10^6/uL (4.00-5.40); WHITE BLOOD COUNT 8.5 10^3/uL (4.0-10.0)
[2023-09-26 06:48] LABS: BLOOD UREA NITROGEN 25 MG/DL (9-23); CALCIUM LEVEL 7.9 MG/DL (8.3-10.6); CARBON DIOXIDE LEVEL > 40.0 MMOL/L (20-31); CHLORIDE LEVEL 96 MMOL/L (98-107); GLOMERULAR FILTRATION RATE > 60.0 (>39); GLUCOSE, FASTING 137 MG/DL (74-106); POTASSIUM SERUM 3.3 MMOL/L (3.5-5.1); SODIUM LEVEL 140 MMOL/L (136-145)
[2023-09-26 06:50] LABS: PLATELET COUNT, AUTOMATED 88 10^3/uL (150-450)
[2023-09-26 08:43] VITALS: BP 112/50; O2SAT 100
[2023-09-26 09:00] VITALS: O2SAT 90
[2023-09-26] MEDS: POTASSIUM CHLORIDE 10MEQ SR TABLET PO ONE (09:29)
[2023-09-26 12:00] VITALS: BP 113/50; TEMP 97.9; O2SAT 92
[2023-09-26] MEDS: LIDOCAINE 5% (LIDODERM) PATCH TD ONE (16:07)
[2023-09-26] MEDS: POTASSIUM CHLORIDE 10MEQ SR TABLET PO SCH (16:08)
[2023-09-26 20:24] VITALS: BP 108/50; TEMP 98.4; O2SAT 94
[2023-09-27] VITALS (14 sets, daily range): BP systolic 88–134; BP diastolic 44–60; TEMP 97.7–98.1; O2SAT 80–99
[2023-09-27 06:38] LABS: CALCIUM LEVEL 8.2 MG/DL (8.3-10.6); CREATININE FOR GFR 0.98 MG/DL (0.55-1.30); GLOMERULAR FILTRATION RATE 59.2 (>39); MAGNESIUM LEVEL 2.2 MG/DL (1.8-2.4); POTASSIUM SERUM 3.9 MMOL/L (3.5-5.1)
[2023-09-27] MEDS ORDERED: NS 500 ML IV ONE (07:55)
[2023-09-27] MEDS: NS 500 ML IV ONE ×2 (07:59→10:03)
[2023-09-27 08:04] LABS: BASO % 0.4 % (0.0-1.0); EOS # 0.2 10^3/uL (0.0-0.5); EOS % 2.8 % (0.0-3.0); HEMOGLOBIN 10.4 g/dl (12.0-15.5); LYMPH # 0.8 10^3/uL (1.5-5.0); LYMPH % 9.7 % (24.0-44.0); MEAN CORPUSCULAR HEMOGLOBIN 28.1 pg (27.0-33.0); MEAN CORPUSCULAR HGB CONC 30.6 g/dl (32.0-36.5); MEAN CORPUSCULAR VOLUME 91.9 fl (80.0-96.0); MONO # 0.6 10^3/uL (0.0-0.8); MONO % 7.9 % (2.0-8.0); NEUTROPHILS # 6.2 10^3/uL (1.5-8.5); NEUTROPHILS % 77.8 % (36.0-66.0); PLATELET COUNT, AUTOMATED 91 10^3/uL (150-450)
[2023-09-27] MEDS: LIDOCAINE 5% (LIDODERM) PATCH TD PRN (23:55)
[2023-09-28 04:00] VITALS: BP 122/48; TEMP 97.9; O2SAT 91
[2023-09-28 06:14] LABS: BASO % 0.3 % (0.0-1.0); EOS # 0.2 10^3/uL (0.0-0.5); EOS % 3.2 % (0.0-3.0); HEMATOCRIT 29.4 % (36.0-47.0); HEMOGLOBIN 9.2 g/dl (12.0-15.5); LYMPH # 0.8 10^3/uL (1.5-5.0); LYMPH % 11.4 % (24.0-44.0); MEAN CORPUSCULAR HEMOGLOBIN 28.8 pg (27.0-33.0); MEAN CORPUSCULAR HGB CONC 31.3 g/dl (32.0-36.5); MEAN CORPUSCULAR VOLUME 91.9 fl (80.0-96.0); MONO # 0.6 10^3/uL (0.0-0.8); MONO % 8.4 % (2.0-8.0); NEUTROPHILS # 5.1 10^3/uL (1.5-8.5); NEUTROPHILS % 75.7 % (36.0-66.0); WHITE BLOOD COUNT 6.8 10^3/uL (4.0-10.0)
[2023-09-28 06:21] LABS: PLATELET COUNT, AUTOMATED 80 10^3/uL (150-450)
[2023-09-28 06:38] LABS: BLOOD UREA NITROGEN 19 MG/DL (9-23); CALCIUM LEVEL 8.1 MG/DL (8.3-10.6); CARBON DIOXIDE LEVEL 38 MMOL/L (20-31); CHLORIDE LEVEL 101 MMOL/L (98-107); CREATININE FOR GFR 0.86 MG/DL (0.55-1.30); GLOMERULAR FILTRATION RATE > 60.0 (>39); GLUCOSE, FASTING 156 MG/DL (74-106); MAGNESIUM LEVEL 2.4 MG/DL (1.8-2.4); POTASSIUM SERUM 3.4 MMOL/L (3.5-5.1); SODIUM LEVEL 140 MMOL/L (136-145)
[2023-09-28] MEDS: POTASSIUM CHLORIDE 10MEQ SR TABLET PO ONE (09:25)
[2023-09-28 12:00] VITALS: BP 123/69; TEMP 97; O2SAT 97
[2023-09-28 20:00] VITALS: BP 115/41; TEMP 97.9; O2SAT 94
[2023-09-28 23:20] VITALS: O2SAT 99
[2023-09-29] VITALS (33 sets, daily range): BP systolic 102–139; BP diastolic 44–81; TEMP 96.6–98.1; O2SAT 82–100
[2023-09-29 07:22] LABS: BLOOD UREA NITROGEN 16 MG/DL (9-23); CALCIUM LEVEL 8.1 MG/DL (8.3-10.6); CARBON DIOXIDE LEVEL 37 MMOL/L (20-31); CHLORIDE LEVEL 102 MMOL/L (98-107); CREATININE FOR GFR 0.84 MG/DL (0.55-1.30); GLOMERULAR FILTRATION RATE > 60.0 (>39); GLUCOSE, FASTING 119 MG/DL (74-106); MAGNESIUM LEVEL 2.3 MG/DL (1.8-2.4); POTASSIUM SERUM 3.7 MMOL/L (3.5-5.1); SODIUM LEVEL 141 MMOL/L (136-145)
[2023-09-29 08:15] LABS: PROCALCITONIN 0.18 ng/ml
[2023-09-29] MEDS: ASPIRIN 81MG CHEW TABLET PO SCH (09:53)
[2023-09-29] MEDS: FUROSEMIDE 100MG/10ML VIAL IV SCH (09:56)
[2023-09-29] MEDS: EMLA CREAM 5GM TUBE (LIDOCAINE/PRILOCAINE) TOP PRN (09:57)
[2023-09-29] MEDS: LEVEMIR (INSULIN DETEMIR) 1 UNITS/0.01ML SC SCH ×2 (10:20→20:39)
[2023-09-29] MEDS: SODIUM CHLORIDE 0.9% INJ 10 ML SYR IV SCH (11:23)
[2023-09-29 15:08] LABS: ABG BASE EXCESS 2.7 (-2.0-2.0); ABG O2 SATURATION 79.3 % (95.0-99.0); ABG PARTIAL PRESSURE CO2 45.9 mmHg (35.0-45.0); ABG PARTIAL PRESSURE O2 44.5 mmHg (75.0-100.0); ABG STANDARD HCO3 26.5 MMOL/L. (22.0-26.0); ABG TOTAL CO2 29.4 MMOL/L (23.0-31.0); ABG pH (ARTERIAL) 7.403 UNITS (7.350-7.450)
[2023-09-29] MEDS ORDERED: methylPREDNISolone 125MG 2ML VIAL As Ordered ONE (15:08)
[2023-09-29] MEDS: methylPREDNISolone 125MG 2ML VIAL IV STA (15:09)
[2023-09-29 15:18] LABS: HEMATOCRIT 32.2 % (36.0-47.0); HEMOGLOBIN 9.9 g/dl (12.0-15.5); MEAN CORPUSCULAR HEMOGLOBIN 28.2 pg (27.0-33.0); MEAN CORPUSCULAR HGB CONC 30.7 g/dl (32.0-36.5); MEAN CORPUSCULAR VOLUME 91.7 fl (80.0-96.0); PLATELET COUNT, AUTOMATED 105 10^3/uL (150-450); RED BLOOD COUNT 3.51 10^6/uL (4.00-5.40)
[2023-09-29] MEDS: DEXTROSE 50% 50ML VIAL IV STA (15:21)
[2023-09-29 16:02] LABS: ABG BASE EXCESS 4.8 (-2.0-2.0); ABG HCO3 29.1 MMOL/L (22.0-26.0); ABG O2 SATURATION 97.1 % (95.0-99.0); ABG PARTIAL PRESSURE CO2 42.2 mmHg (35.0-45.0); ABG PARTIAL PRESSURE O2 92.4 mmHg (75.0-100.0); ABG STANDARD HCO3 28.8 MMOL/L. (22.0-26.0); ABG TOTAL CO2 30.4 MMOL/L (23.0-31.0); ABG pH (ARTERIAL) 7.457 UNITS (7.350-7.450)
[2023-09-29 16:19] LABS: ALBUMIN 2.8 G/DL (3.2-5.2); ALKALINE PHOSPHATASE 69 U/L (46-116); ALT/SGPT 19 U/L (7.0-40); AST/SGOT 16 U/L (<34); BILIRUBIN,TOTAL 0.6 MG/DL (0.3-1.2); BLOOD UREA NITROGEN 17 MG/DL (9-23); CALCIUM LEVEL 8.9 MG/DL (8.3-10.6); CARBON DIOXIDE LEVEL 30 MMOL/L (20-31); CHLORIDE LEVEL 96 MMOL/L (98-107); CK-MB VALUE MASS 2.2 NG/ML (<3.6); CPK CREATINE PHOSPHOKINASE 42 U/L (34-145); CREATININE FOR GFR 0.91 MG/DL (0.55-1.30); GLOMERULAR FILTRATION RATE > 60.0 (>39); GLUCOSE, FASTING 407 MG/DL (74-106); MB/CK RELATIVE INDEX 5.23 (< OR =4); POTASSIUM SERUM 3.5 MMOL/L (3.5-5.1); SODIUM LEVEL 138 MMOL/L (136-145); TOTAL PROTEIN 6.3 G/DL (5.7-8.2)
[2023-09-29] MEDS: FUROSEMIDE 40MG/4ML VIAL IV SCH (18:08)
[2023-09-29] MEDS: ALPRAZolam 0.5 MG TAB PO PRN (20:52)
[2023-09-30] VITALS (34 sets, daily range): BP systolic 93–163; BP diastolic 51–101; TEMP 97–98.1; O2SAT 92–100
[2023-09-30 05:05] LABS: HEMATOCRIT 29.9 % (36.0-47.0); HEMOGLOBIN 9.3 g/dl (12.0-15.5); MEAN CORPUSCULAR HGB CONC 31.1 g/dl (32.0-36.5); MEAN CORPUSCULAR VOLUME 90.1 fl (80.0-96.0); RED BLOOD COUNT 3.32 10^6/uL (4.00-5.40); WHITE BLOOD COUNT 4.3 10^3/uL (4.0-10.0)
[2023-09-30 05:11] LABS: PLATELET COUNT, AUTOMATED 79 10^3/uL (150-450)
[2023-09-30] MEDS: methylPREDNISolone 125MG 2ML VIAL IV SCH (05:26)
[2023-09-30 09:34] LABS: CALCIUM LEVEL 8.4 MG/DL (8.3-10.6); CREATININE FOR GFR 1.09 MG/DL (0.55-1.30); GLOMERULAR FILTRATION RATE 52.4 (>39); MAGNESIUM LEVEL 2.4 MG/DL (1.8-2.4); POTASSIUM SERUM 4.4 MMOL/L (3.5-5.1)
[2023-09-30] MEDS: INSULIN LISPRO (NovoLOG) PER UNIT SC ONE ×2 (15:51→18:45)
[2023-09-30] MEDS: NS MINI IV SCH (16:25)
[2023-09-30] MEDS: CEFEPIME HCL IV SCH (16:25)
[2023-09-30] MEDS ORDERED: methylPREDNISolone 40MG 1ML VIAL IV SCH (17:00)
[2023-09-30 18:55] LABS: CALCIUM LEVEL 7.8 MG/DL (8.3-10.6); CREATININE FOR GFR 1.21 MG/DL (0.55-1.30); GLOMERULAR FILTRATION RATE 46.4 (>39); POTASSIUM SERUM 3.3 MMOL/L (3.5-5.1)
[2023-09-30] MEDS: POTASSIUM CHLORIDE 10MEQ SR TABLET PO ONE (20:59)
[2023-09-30] MEDS: LEVEMIR (INSULIN DETEMIR) 1 UNITS/0.01ML SC SCH (23:23)
[2023-09-30] MEDS: INSULIN LISPRO (NovoLOG) PER UNIT SC STA (23:31)
[2023-10-01] VITALS (36 sets, daily range): BP systolic 89–139; BP diastolic 52–80; TEMP 96.8–98.3; O2SAT 76–100
[2023-10-01 05:46] LABS: HEMATOCRIT 25.9 % (36.0-47.0); HEMOGLOBIN 8.5 g/dl (12.0-15.5); MEAN CORPUSCULAR HEMOGLOBIN 28.7 pg (27.0-33.0); MEAN CORPUSCULAR HGB CONC 32.8 g/dl (32.0-36.5); MEAN CORPUSCULAR VOLUME 87.5 fl (80.0-96.0); RED BLOOD COUNT 2.96 10^6/uL (4.00-5.40); WHITE BLOOD COUNT 8.1 10^3/uL (4.0-10.0)
[2023-10-01 05:48] LABS: PLATELET COUNT, AUTOMATED 74 10^3/uL (150-450)
[2023-10-01 06:18] LABS: CALCIUM LEVEL 8.4 MG/DL (8.3-10.6); CREATININE FOR GFR 1.21 MG/DL (0.55-1.30); GLOMERULAR FILTRATION RATE 46.4 (>39); MAGNESIUM LEVEL 2.3 MG/DL (1.8-2.4); POTASSIUM SERUM 3.8 MMOL/L (3.5-5.1)
[2023-10-01] MEDS: FUROSEMIDE 20MG/2ML VIAL IV SCH (09:39)
[2023-10-01] MEDS: LEVEMIR (INSULIN DETEMIR) 1 UNITS/0.01ML SC ONE (11:14)
[2023-10-01] MEDS: LEVEMIR (INSULIN DETEMIR) 1 UNITS/0.01ML SC SCH (21:22)
[2023-10-02] VITALS (31 sets, daily range): BP systolic 108–142; BP diastolic 57–66; TEMP 96.5–98; O2SAT 78–100
[2023-10-02 04:27] LABS: HEMATOCRIT 26.3 % (36.0-47.0); HEMOGLOBIN 8.3 g/dl (12.0-15.5); MEAN CORPUSCULAR HEMOGLOBIN 28.6 pg (27.0-33.0); MEAN CORPUSCULAR HGB CONC 31.6 g/dl (32.0-36.5); MEAN CORPUSCULAR VOLUME 90.7 fl (80.0-96.0); WHITE BLOOD COUNT 6.3 10^3/uL (4.0-10.0)
[2023-10-02 04:59] LABS: PLATELET COUNT, AUTOMATED 73 10^3/uL (150-450)
[2023-10-02 05:17] LABS: ALBUMIN 2.6 G/DL (3.2-5.2); BILIRUBIN,TOTAL 0.4 MG/DL (0.3-1.2); CALCIUM LEVEL 8.4 MG/DL (8.3-10.6); CREATININE FOR GFR 1.26 MG/DL (0.55-1.30); GLOMERULAR FILTRATION RATE 44.3 (>39); MAGNESIUM LEVEL 2.4 MG/DL (1.8-2.4); POTASSIUM SERUM 3.3 MMOL/L (3.5-5.1); TOTAL PROTEIN 5.9 G/DL (5.7-8.2)
[2023-10-02] MEDS: LEVEMIR (INSULIN DETEMIR) 1 UNITS/0.01ML SC SCH (09:05)
[2023-10-02] MEDS: POTASSIUM CHLORIDE 10MEQ SR TABLET PO ONE ×2 (09:16→09:35)
[2023-10-02] MEDS: FUROSEMIDE 40MG/4ML VIAL IV SCH (16:44)
[2023-10-03] VITALS (14 sets, daily range): BP systolic 115–140; BP diastolic 54–69; TEMP 96.7–98; O2SAT 87–100
[2023-10-03] MEDS: SODIUM CHLORIDE 0.9% INJ 10 ML SYR IV PRN (05:41)
[2023-10-03 06:09] LABS: HEMATOCRIT 26.8 % (36.0-47.0); HEMOGLOBIN 8.4 g/dl (12.0-15.5); MEAN CORPUSCULAR HEMOGLOBIN 28.7 pg (27.0-33.0); MEAN CORPUSCULAR HGB CONC 31.3 g/dl (32.0-36.5); MEAN CORPUSCULAR VOLUME 91.5 fl (80.0-96.0); RED BLOOD COUNT 2.93 10^6/uL (4.00-5.40); WHITE BLOOD COUNT 5.7 10^3/uL (4.0-10.0)
[2023-10-03 06:12] LABS: PLATELET COUNT, AUTOMATED 77 10^3/uL (150-450)
[2023-10-03 06:50] LABS: ALBUMIN 2.4 G/DL (3.2-5.2); BILIRUBIN,TOTAL 0.4 MG/DL (0.3-1.2); CALCIUM LEVEL 8.5 MG/DL (8.3-10.6); CREATININE FOR GFR 1.04 MG/DL (0.55-1.30); GLOMERULAR FILTRATION RATE 55.3 (>39); POTASSIUM SERUM 3.6 MMOL/L (3.5-5.1); TOTAL PROTEIN 5.5 G/DL (5.7-8.2)
[2023-10-04] VITALS (11 sets, daily range): BP systolic 100–150; BP diastolic 52–68; TEMP 97–98; O2SAT 90–100
[2023-10-04 07:03] LABS: BASO % 0.2 % (0.0-1.0); EOS # 0.3 10^3/uL (0.0-0.5); EOS % 5.8 % (0.0-3.0); HEMATOCRIT 27.3 % (36.0-47.0); HEMOGLOBIN 8.5 g/dl (12.0-15.5); LYMPH # 0.7 10^3/uL (1.5-5.0); LYMPH % 12.2 % (24.0-44.0); MEAN CORPUSCULAR HEMOGLOBIN 28.5 pg (27.0-33.0); MEAN CORPUSCULAR HGB CONC 31.1 g/dl (32.0-36.5); MEAN CORPUSCULAR VOLUME 91.6 fl (80.0-96.0); MONO # 0.4 10^3/uL (0.0-0.8); NEUTROPHILS % 73.4 % (36.0-66.0); RED BLOOD COUNT 2.98 10^6/uL (4.00-5.40); WHITE BLOOD COUNT 5.5 10^3/uL (4.0-10.0)
[2023-10-04 07:06] LABS: PLATELET COUNT, AUTOMATED 73 10^3/uL (150-450)
[2023-10-04 07:31] LABS: BLOOD UREA NITROGEN 34 MG/DL (9-23); CALCIUM LEVEL 8.3 MG/DL (8.3-10.6); CARBON DIOXIDE LEVEL > 40.0 MMOL/L (20-31); CHLORIDE LEVEL 99 MMOL/L (98-107); CREATININE FOR GFR 1.05 MG/DL (0.55-1.30); GLOMERULAR FILTRATION RATE 54.7 (>39); GLUCOSE, FASTING 144 MG/DL (74-106); MAGNESIUM LEVEL 2.2 MG/DL (1.8-2.4); POTASSIUM SERUM 3.4 MMOL/L (3.5-5.1); SODIUM LEVEL 140 MMOL/L (136-145)
[2023-10-04] MEDS: POTASSIUM CHLORIDE 10MEQ SR TABLET PO ONE (20:56)
[2023-10-05] VITALS: O2SAT 92
[2023-10-05 04:56] VITALS: BP 128/62; TEMP 97; O2SAT 92
[2023-10-05 06:10] LABS: BASO % 0.2 % (0.0-1.0); EOS # 0.3 10^3/uL (0.0-0.5); EOS % 5.2 % (0.0-3.0); HEMATOCRIT 30.3 % (36.0-47.0); HEMOGLOBIN 9.4 g/dl (12.0-15.5); LYMPH # 0.8 10^3/uL (1.5-5.0); LYMPH % 13.4 % (24.0-44.0); MEAN CORPUSCULAR HEMOGLOBIN 28.3 pg (27.0-33.0); MEAN CORPUSCULAR VOLUME 91.3 fl (80.0-96.0); MONO # 0.5 10^3/uL (0.0-0.8); MONO % 8.2 % (2.0-8.0); NEUTROPHILS # 4.4 10^3/uL (1.5-8.5); NEUTROPHILS % 72.5 % (36.0-66.0); RED BLOOD COUNT 3.32 10^6/uL (4.00-5.40)
[2023-10-05 06:12] LABS: PLATELET COUNT, AUTOMATED 77 10^3/uL (150-450)
[2023-10-05 06:31] LABS: CALCIUM LEVEL 8.3 MG/DL (8.3-10.6); CREATININE FOR GFR 1.15 MG/DL (0.55-1.30); GLOMERULAR FILTRATION RATE 49.2 (>39); MAGNESIUM LEVEL 2.2 MG/DL (1.8-2.4); POTASSIUM SERUM 3.3 MMOL/L (3.5-5.1)
[2023-10-05 07:46] VITALS: BP 124/58; TEMP 96.9; O2SAT 99
[2023-10-05 11:49] VITALS: BP 104/51; TEMP 96.5; O2SAT 99
[2023-10-05 16:25] VITALS: BP 120/56; TEMP 96.7; O2SAT 100
[2023-10-05] MEDS: POTASSIUM CHLORIDE 10MEQ SR TABLET PO ONE (20:25)
[2023-10-05 20:28] VITALS: BP 122/68; TEMP 97; O2SAT 100
[2023-10-05] MEDS: POTASSIUM CHLORIDE 10MEQ SR TABLET PO SCH (21:58)
[2023-10-06] VITALS (10 sets, daily range): BP systolic 102–123; BP diastolic 48–61; TEMP 96.4–97.7; O2SAT 88–99
[2023-10-06] MEDS ORDERED: FORMOTEROL FUMARATE 20 MCG/2 ML INHALATION SOLUTION (PERFOROMIST) As Ordered ONE (08:44)
[2023-10-06] MEDS ORDERED: FUROSEMIDE 20MG/2ML VIAL As Ordered ONE (09:55)
[2023-10-06] MEDS ORDERED: PANTOPRAZOLE 40MG TAB (PROTONIX) As Ordered ONE (09:55)
[2023-10-06] MEDS ORDERED: CLOPIDOGREL 75 MG TAB As Ordered ONE (09:55)
[2023-10-06] MEDS ORDERED: VITAMIN D 1,000 INTERNATIONAL UNITS TABLET As Ordered ONE (09:56)
[2023-10-06] MEDS ORDERED: MAGNESIUM OXIDE 400MG TAB (MAG-OX) As Ordered ONE (09:56)
[2023-10-06] MEDS ORDERED: LACTOBACILLUS ACIDOPHILUS CAP (BACID) As Ordered ONE (09:56)
[2023-10-06] MEDS ORDERED: ASPIRIN 81MG CHEW TABLET As Ordered ONE (09:56)
[2023-10-06] MEDS ORDERED: CALCIUM CARBONATE 500 MG CHEW U/D As Ordered ONE (09:57)
[2023-10-06] MEDS ORDERED: SERTRALINE 100 MG TAB As Ordered ONE (09:57)
[2023-10-06] MEDS ORDERED: INSULIN LISPRO (NovoLOG) PER UNIT As Ordered ONE (09:57)
[2023-10-06] MEDS ORDERED: BENZONATATE 100MG CAPSULE As Ordered ONE (09:57)
[2023-10-06] MEDS ORDERED: SUCRALFATE 1 GM TAB As Ordered ONE (09:57)
[2023-10-06] MEDS ORDERED: ANEXSIA, NORCO 7.5MG/325MG TABLET(HYDROCODONE/APAP) As Ordered ONE (09:57)
[2023-10-06] MEDS ORDERED: ONDANSETRON 4MG ORAL DISINTEGRATING TAB As Ordered ONE (09:58)
[2023-10-06] MEDS ORDERED: LEVEMIR (INSULIN DETEMIR) 1 UNITS/0.01ML As Ordered ONE (09:59)
[2023-10-06] MEDS ORDERED: ALPRAZolam 0.5 MG TAB As Ordered ONE (10:00)
[2023-10-06] MEDS ORDERED: NICOTINE 21MG/24HR 1 EA TRANSDERMAL As Ordered ONE (10:00)
[2023-10-06 15:19] LABS: BLOOD UREA NITROGEN 28 MG/DL (9-23); CARBON DIOXIDE LEVEL > 40.0 MMOL/L (20-31); CHLORIDE LEVEL 100 MMOL/L (98-107); CREATININE FOR GFR 1.03 MG/DL (0.55-1.30); GLOMERULAR FILTRATION RATE 55.9 (>39); GLUCOSE, FASTING 103 MG/DL (74-106); POTASSIUM SERUM 3.6 MMOL/L (3.5-5.1); SODIUM LEVEL 141 MMOL/L (136-145)
[2023-10-06 15:39] LABS: BASO % 0.2 % (0.0-1.0); EOS # 0.3 10^3/uL (0.0-0.5); EOS % 5.2 % (0.0-3.0); HEMATOCRIT 28.2 % (36.0-47.0); HEMOGLOBIN 8.8 g/dl (12.0-15.5); LYMPH # 0.6 10^3/uL (1.5-5.0); LYMPH % 9.7 % (24.0-44.0); MEAN CORPUSCULAR HEMOGLOBIN 28.4 pg (27.0-33.0); MEAN CORPUSCULAR HGB CONC 31.2 g/dl (32.0-36.5); MONO # 0.6 10^3/uL (0.0-0.8); MONO % 8.9 % (2.0-8.0); NEUTROPHILS # 4.7 10^3/uL (1.5-8.5); NEUTROPHILS % 75.4 % (36.0-66.0); WHITE BLOOD COUNT 6.2 10^3/uL (4.0-10.0)
[2023-10-06 15:40] LABS: PLATELET COUNT, AUTOMATED 65 10^3/uL (150-450)
[2023-10-06] MEDS: LEVALBUTEROL 1.25MG 0.5ML CONCENTRATE NEB INH PRN (19:50)
[2023-10-07] VITALS (12 sets, daily range): BP systolic 100–124; BP diastolic 50–64; TEMP 97.1–97.8; O2SAT 88–99
[2023-10-07 08:09] LABS: BASO % 0.4 % (0.0-1.0); EOS # 0.3 10^3/uL (0.0-0.5); HEMATOCRIT 28.4 % (36.0-47.0); HEMOGLOBIN 8.6 g/dl (12.0-15.5); LYMPH # 0.7 10^3/uL (1.5-5.0); LYMPH % 14.2 % (24.0-44.0); MEAN CORPUSCULAR HEMOGLOBIN 28.1 pg (27.0-33.0); MEAN CORPUSCULAR HGB CONC 30.3 g/dl (32.0-36.5); MEAN CORPUSCULAR VOLUME 92.8 fl (80.0-96.0); MONO # 0.6 10^3/uL (0.0-0.8); MONO % 11.1 % (2.0-8.0); NEUTROPHILS # 3.5 10^3/uL (1.5-8.5); NEUTROPHILS % 67.5 % (36.0-66.0); RED BLOOD COUNT 3.06 10^6/uL (4.00-5.40); WHITE BLOOD COUNT 5.1 10^3/uL (4.0-10.0)
[2023-10-07 08:10] LABS: PLATELET COUNT, AUTOMATED 70 10^3/uL (150-450)
[2023-10-07 08:35] LABS: CALCIUM LEVEL 8.3 MG/DL (8.3-10.6); CREATININE FOR GFR 1.12 MG/DL (0.55-1.30); GLOMERULAR FILTRATION RATE 50.8 (>39); MAGNESIUM LEVEL 2.1 MG/DL (1.8-2.4); POTASSIUM SERUM 4.5 MMOL/L (3.5-5.1)
[2023-10-08] VITALS (56 sets, daily range): BP systolic 96–137; BP diastolic 50–99; TEMP 96.3–98.9; O2SAT 63–98
[2023-10-08 07:43] LABS: BASO % 0.3 % (0.0-1.0); EOS # 0.3 10^3/uL (0.0-0.5); EOS % 4.9 % (0.0-3.0); HEMATOCRIT 29.3 % (36.0-47.0); HEMOGLOBIN 8.7 g/dl (12.0-15.5); LYMPH # 0.6 10^3/uL (1.5-5.0); LYMPH % 9.6 % (24.0-44.0); MEAN CORPUSCULAR HEMOGLOBIN 27.9 pg (27.0-33.0); MEAN CORPUSCULAR HGB CONC 29.7 g/dl (32.0-36.5); MEAN CORPUSCULAR VOLUME 93.9 fl (80.0-96.0); MONO # 0.5 10^3/uL (0.0-0.8); MONO % 9.4 % (2.0-8.0); NEUTROPHILS # 4.3 10^3/uL (1.5-8.5); NEUTROPHILS % 74.9 % (36.0-66.0); RED BLOOD COUNT 3.12 10^6/uL (4.00-5.40); WHITE BLOOD COUNT 5.7 10^3/uL (4.0-10.0)
[2023-10-08 07:45] LABS: PLATELET COUNT, AUTOMATED 77 10^3/uL (150-450)
[2023-10-08 08:08] LABS: CALCIUM LEVEL 8.8 MG/DL (8.3-10.6); CREATININE FOR GFR 1.22 MG/DL (0.55-1.30); MAGNESIUM LEVEL 2.3 MG/DL (1.8-2.4); POTASSIUM SERUM 4.9 MMOL/L (3.5-5.1)
[2023-10-08] MEDS: FUROSEMIDE 40MG/4ML VIAL IV ONE (08:17)
[2023-10-08] MEDS: INSULIN LISPRO (NovoLOG) PER UNIT SC SCH (12:00)
[2023-10-08] MEDS: ONDANSETRON 4MG 2ML VIAL IV PRN (14:04)
[2023-10-09] VITALS (38 sets, daily range): BP systolic 78–126; BP diastolic 42–71; TEMP 97.9–98.6; O2SAT 80–99
[2023-10-09] MEDS: LORazepam 2 MG/ML 1ML VIAL IV PRN (05:14)
[2023-10-09 05:38] LABS: BASO % 0.2 % (0.0-1.0); EOS # 0.2 10^3/uL (0.0-0.5); EOS % 3.4 % (0.0-3.0); HEMATOCRIT 27.1 % (36.0-47.0); HEMOGLOBIN 8.2 g/dl (12.0-15.5); LYMPH # 0.7 10^3/uL (1.5-5.0); LYMPH % 11.8 % (24.0-44.0); MEAN CORPUSCULAR HEMOGLOBIN 28.3 pg (27.0-33.0); MEAN CORPUSCULAR HGB CONC 30.3 g/dl (32.0-36.5); MEAN CORPUSCULAR VOLUME 93.4 fl (80.0-96.0); MONO # 0.7 10^3/uL (0.0-0.8); MONO % 10.7 % (2.0-8.0); NEUTROPHILS # 4.5 10^3/uL (1.5-8.5); NEUTROPHILS % 73.4 % (36.0-66.0); PLATELET COUNT, AUTOMATED 90 10^3/uL (150-450); WHITE BLOOD COUNT 6.1 10^3/uL (4.0-10.0)
[2023-10-09 07:21] LABS: CALCIUM LEVEL 8.5 MG/DL (8.3-10.6); CREATININE FOR GFR 1.32 MG/DL (0.55-1.30); MAGNESIUM LEVEL 2.1 MG/DL (1.8-2.4); POTASSIUM SERUM 4.3 MMOL/L (3.5-5.1)
[2023-10-09] MEDS: methylPREDNISolone 125MG 2ML VIAL IV SCH (17:12)
[2023-10-10] VITALS (15 sets, daily range): BP systolic 84–129; BP diastolic 50–62; TEMP 96.4–98.8; O2SAT 86–100
[2023-10-10 04:40] LABS: BASO % 0.2 % (0.0-1.0); HEMATOCRIT 25.8 % (36.0-47.0); HEMOGLOBIN 8.1 g/dl (12.0-15.5); LYMPH # 0.3 10^3/uL (1.5-5.0); LYMPH % 7.3 % (24.0-44.0); MEAN CORPUSCULAR HEMOGLOBIN 28.6 pg (27.0-33.0); MEAN CORPUSCULAR HGB CONC 31.4 g/dl (32.0-36.5); MEAN CORPUSCULAR VOLUME 91.2 fl (80.0-96.0); MONO # 0.1 10^3/uL (0.0-0.8); MONO % 2.2 % (2.0-8.0); NEUTROPHILS # 3.7 10^3/uL (1.5-8.5); NEUTROPHILS % 89.6 % (36.0-66.0); RED BLOOD COUNT 2.83 10^6/uL (4.00-5.40); WHITE BLOOD COUNT 4.1 10^3/uL (4.0-10.0)
[2023-10-10 04:47] LABS: PLATELET COUNT, AUTOMATED 85 10^3/uL (150-450)
[2023-10-10 04:51] LABS: ERYTHROCYTE SEDIMENTATION RATE 79 mm/hr (0-30)
[2023-10-10 05:00] LABS: C REACTIVE PROTEIN QUANTITATIV 22.5 MG/DL (<1.0)
[2023-10-10 05:02] LABS: CALCIUM LEVEL 8.2 MG/DL (8.3-10.6); CREATININE FOR GFR 1.6 MG/DL (0.55-1.30); GLOMERULAR FILTRATION RATE 33.6 (>39); MAGNESIUM LEVEL 2.4 MG/DL (1.8-2.4); POTASSIUM SERUM 4.4 MMOL/L (3.5-5.1)
[2023-10-10] MEDS: methylPREDNISolone 125MG 2ML VIAL IV SCH (12:55)
[2023-10-10] MEDS: INSULIN LISPRO (NovoLOG) PER UNIT SC SCH (22:52)
[2023-10-11] VITALS (16 sets, daily range): BP systolic 119–146; BP diastolic 56–86; TEMP 96.9–97.2; O2SAT 28–98
[2023-10-11 04:52] LABS: CALCIUM LEVEL 8.5 MG/DL (8.3-10.6); CREATININE FOR GFR 1.91 MG/DL (0.55-1.30); GLOMERULAR FILTRATION RATE 27.4 (>39); MAGNESIUM LEVEL 2.8 MG/DL (1.8-2.4); POTASSIUM SERUM 4.3 MMOL/L (3.5-5.1)
[2023-10-11] MEDS: LEVEMIR (INSULIN DETEMIR) 1 UNITS/0.01ML SC SCH ×2 (09:57→21:30)
[2023-10-11] MEDS: NICOTINE 21MG/24HR 1 EA TRANSDERMAL TD SCH (10:02)
[2023-10-12] VITALS (25 sets, daily range): BP systolic 104–140; BP diastolic 51–79; TEMP 97.4–97.7; O2SAT 85–100
[2023-10-12] MEDS ORDERED: SILDENAFIL CITRATE 20 MG TABLET (REVATIO) PO SCH (09:00)
[2023-10-12] MEDS: methylPREDNISolone 40MG 1ML VIAL IV SCH (10:33)
[2023-10-12 12:10] LABS: BASO % 0.1 % (0.0-1.0); HEMOGLOBIN 8.3 g/dl (12.0-15.5); LYMPH # 0.3 10^3/uL (1.5-5.0); LYMPH % 2.8 % (24.0-44.0); MEAN CORPUSCULAR HEMOGLOBIN 28.7 pg (27.0-33.0); MEAN CORPUSCULAR HGB CONC 30.7 g/dl (32.0-36.5); MEAN CORPUSCULAR VOLUME 93.4 fl (80.0-96.0); MONO # 0.7 10^3/uL (0.0-0.8); MONO % 6.4 % (2.0-8.0); NEUTROPHILS # 9.5 10^3/uL (1.5-8.5); RED BLOOD COUNT 2.89 10^6/uL (4.00-5.40); WHITE BLOOD COUNT 10.6 10^3/uL (4.0-10.0)
[2023-10-12 12:33] LABS: PLATELET COUNT, AUTOMATED 90 10^3/uL (150-450)
[2023-10-12 12:40] LABS: ALBUMIN 2.7 G/DL (3.2-5.2); BILIRUBIN,TOTAL 0.4 MG/DL (0.3-1.2); CALCIUM LEVEL 9.2 MG/DL (8.3-10.6); CREATININE FOR GFR 1.41 MG/DL (0.55-1.30); GLOMERULAR FILTRATION RATE 38.9 (>39); PHOSPHORUS LEVEL 2.8 MG/DL (2.4-5.1); POTASSIUM SERUM 4.2 MMOL/L (3.5-5.1); TOTAL PROTEIN 6.2 G/DL (5.7-8.2)
[2023-10-12] MEDS: SILDENAFIL CITRATE 20 MG TABLET (REVATIO) PO SCH (13:08)
[2023-10-13] VITALS (21 sets, daily range): BP systolic 76–187; BP diastolic 50–92; TEMP 97.6–98.2; O2SAT 29–99
[2023-10-13 05:06] LABS: EOS % 0.1 % (0.0-3.0); HEMATOCRIT 28.2 % (36.0-47.0); HEMOGLOBIN 8.5 g/dl (12.0-15.5); LYMPH # 0.4 10^3/uL (1.5-5.0); LYMPH % 5.1 % (24.0-44.0); MEAN CORPUSCULAR HEMOGLOBIN 28.5 pg (27.0-33.0); MEAN CORPUSCULAR HGB CONC 30.1 g/dl (32.0-36.5); MEAN CORPUSCULAR VOLUME 94.6 fl (80.0-96.0); MONO # 0.7 10^3/uL (0.0-0.8); MONO % 8.2 % (2.0-8.0); NEUTROPHILS # 7.2 10^3/uL (1.5-8.5); NEUTROPHILS % 86.1 % (36.0-66.0); RED BLOOD COUNT 2.98 10^6/uL (4.00-5.40); WHITE BLOOD COUNT 8.3 10^3/uL (4.0-10.0)
[2023-10-13 05:15] LABS: PLATELET COUNT, AUTOMATED 84 10^3/uL (150-450)
[2023-10-13 05:22] LABS: ALBUMIN 2.7 G/DL (3.2-5.2); BILIRUBIN,TOTAL 0.4 MG/DL (0.3-1.2); CALCIUM LEVEL 8.8 MG/DL (8.3-10.6); CREATININE FOR GFR 1.41 MG/DL (0.55-1.30); GLOMERULAR FILTRATION RATE 38.9 (>39); MAGNESIUM LEVEL 2.9 MG/DL (1.8-2.4); PHOSPHORUS LEVEL 3.2 MG/DL (2.4-5.1); POTASSIUM SERUM 3.9 MMOL/L (3.5-5.1)
[2023-10-13 06:01] LABS: ABG BASE EXCESS 8.2 (-2.0-2.0); ABG HCO3 34.8 MMOL/L (22.0-26.0); ABG O2 SATURATION 90.3 % (95.0-99.0); ABG PARTIAL PRESSURE O2 62.9 mmHg (75.0-100.0); ABG STANDARD HCO3 31.8 MMOL/L. (22.0-26.0); ABG TOTAL CO2 36.6 MMOL/L (23.0-31.0); ABG pH (ARTERIAL) 7.378 UNITS (7.350-7.450)
[2023-10-13 06:03] LABS: ABG PARTIAL PRESSURE CO2 60.4 mmHg (35.0-45.0)
[2023-10-13] MEDS: predniSONE 20 MG TAB PO SCH (10:48)
[2023-10-13] MEDS: LEVEMIR (INSULIN DETEMIR) 1 UNITS/0.01ML SC SCH (10:49)
[2023-10-13] MEDS: EPINEPHrine 1MG/10ML SYRINGE 1.5IN IV STA (12:05)
[2023-10-13] MEDS: FUROSEMIDE 100MG/10ML VIAL IV ONE (13:31)
[2023-10-13] MEDS: HEPARIN SOD (PORCINE) 5000UNITS/ML 1ML VIAL/SYRINGE SQ SCH (21:25)
[2023-10-14] VITALS (9 sets, daily range): BP systolic 95–156; BP diastolic 53–80; TEMP 97.7–98.6; O2SAT 65–94
[2023-10-14 05:11] LABS: HEMATOCRIT 31.4 % (36.0-47.0); HEMOGLOBIN 9.4 g/dl (12.0-15.5); MEAN CORPUSCULAR HEMOGLOBIN 28.2 pg (27.0-33.0); MEAN CORPUSCULAR HGB CONC 29.9 g/dl (32.0-36.5); MEAN CORPUSCULAR VOLUME 94.3 fl (80.0-96.0); RED BLOOD COUNT 3.33 10^6/uL (4.00-5.40); WHITE BLOOD COUNT 8.3 10^3/uL (4.0-10.0)
[2023-10-14 05:15] LABS: PLATELET COUNT, AUTOMATED 86 10^3/uL (150-450)
[2023-10-14 05:43] LABS: ALBUMIN 2.7 G/DL (3.2-5.2); BILIRUBIN,TOTAL 0.5 MG/DL (0.3-1.2); CALCIUM LEVEL 8.7 MG/DL (8.3-10.6); CREATININE FOR GFR 1.18 MG/DL (0.55-1.30); GLOMERULAR FILTRATION RATE 47.8 (>39); POTASSIUM SERUM 4.2 MMOL/L (3.5-5.1); TOTAL PROTEIN 6.2 G/DL (5.7-8.2)
[2023-10-14] MEDS: LORazepam 2 MG/ML 1ML VIAL IV PRN (08:18)
[2023-10-14] MEDS: MORPHINE 2 MG/ML 1ML VIAL IV PRN (08:27)
[2023-10-15 00:01] VITALS: BP 120/57; O2SAT 93
[2023-10-15 04:01] VITALS: BP 152/71; TEMP 98.3; O2SAT 80
[2023-10-15 08:00] VITALS: BP 158/72; TEMP 98.2; O2SAT 83
[2023-10-15] MEDS ORDERED: ONDANSETRON 4MG 2ML VIAL IV PRN (11:10)
[2023-10-15] MEDS ORDERED: SCOPOLAMINE 1MG TRANSDERMAL PATCH TOP PRN (11:10)
[2023-10-15] MEDS ORDERED: ATROPINE SULFATE 1% OPHTH SOLN 2ML BTL SL PRN (11:10)
[2023-10-15] MEDS ORDERED: LORazepam 2 MG/ML 1ML VIAL IV PRN (11:10)
[2023-10-15] MEDS ORDERED: MORPHINE 2 MG/ML 1ML VIAL IV PRN ×2 (11:10→13:10)
[2023-10-15] MEDS: MORPHINE 2 MG/ML 1ML VIAL IV ONE (11:29)
== END 2023-10-15 13:25 | disposition expired | DRG 291 ==
LOC: EDBD 14:32 → M ED 14:32 → M ED INP 14:33 → M PCU 21:05 → OBSVTOIN 09-05 13:36 → M ICU 09-11 12:32 → M PCU 09-14 17:38 → M MSPAV 09-22 11:27 → M ICU 09-29 15:25 → M PCU 10-02 14:44 → M ICU 10-08 06:23
PROVIDERS: ADMIT Internal Medicine; ATTEND Internal Medicine
PROC: B246ZZZ Ultrasonography of Right and Left Heart (ICD-10-PCS; principal; 2023-10-11)
DX: I11.0 Hypertensive heart disease with heart failure (principal); J96.21 Acute and chronic respiratory failure with hypoxia; I50.33 Acute on chronic diastolic (congestive) heart failure; J15.1 Pneumonia due to Pseudomonas; J15.0 Pneumonia due to Klebsiella pneumoniae; D69.3 Immune thrombocytopenic purpura; C34.90 Malignant neoplasm of unspecified part of unspecified bronchus or lung; C91.10 Chronic lymphocytic leukemia of B-cell type not having achieved remission; J44.0 Chronic obstructive pulmonary disease with (acute) lower respiratory infection; J44.1 Chronic obstructive pulmonary disease with (acute) exacerbation; N17.9 Acute kidney failure, unspecified; Z66 Do not resuscitate; I25.10 Atherosclerotic heart disease of native coronary artery without angina pectoris; I73.9 Peripheral vascular disease, unspecified; E11.51 Type 2 diabetes mellitus with diabetic peripheral angiopathy without gangrene; E78.5 Hyperlipidemia, unspecified; D50.9 Iron deficiency anemia, unspecified; K21.9 Gastro-esophageal reflux disease without esophagitis; C67.9 Malignant neoplasm of bladder, unspecified; K76.0 Fatty (change of) liver, not elsewhere classified; Z95.828 Presence of other vascular implants and grafts; Z79.82 Long term (current) use of aspirin; Z92.21 Personal history of antineoplastic chemotherapy; Z92.3 Personal history of irradiation; Z99.81 Dependence on supplemental oxygen; Z79.4 Long term (current) use of insulin; Z79.52 Long term (current) use of systemic steroids; Z79.899 Other long term (current) drug therapy; Z88.0 Allergy status to penicillin; Z88.1 Allergy status to other antibiotic agents; Z88.8 Allergy status to other drugs, medicaments and biological substances; Z91.048 Other nonmedicinal substance allergy status; F41.9 Anxiety disorder, unspecified; F32.A Depression, unspecified; Z68.37 Body mass index [BMI] 37.0-37.9, adult; G47.00 Insomnia, unspecified; E87.6 Hypokalemia; J84.10 Pulmonary fibrosis, unspecified; I27.23 Pulmonary hypertension due to lung diseases and hypoxia; D63.8 Anemia in other chronic diseases classified elsewhere; I27.21 Secondary pulmonary arterial hypertension